=== PATIENT | male | born 1960 | race American Indian/Alaskan Native ===

== ENCOUNTER 2017-09-15 20:21 | Emergency (ER) | payer MEDICAID, OTHER ==
[2017-09-15 20:30] VITALS: RESP 19; TEMP 97.1; O2SAT 95
--- NOTE | 2017-09-15 22:18 | US ---
EXAM: US Scrotum EXAM DATE/TIME: 09/15/2017 8:56 PM CLINICAL HISTORY: 57 years old, male; Pain; Scrotum pain; Additional info: Pain, edema TECHNIQUE: Real-time ultrasound of the scrotum with color Doppler and image documentation. COMPARISON: No relevant prior studies available. FINDINGS: There is scrotal wall thickening (6 mm on the right and 9 mm on left). The thickened scrotal wall is heterogeneous and hypervascular. This combination of findings suggest acute infectious/inflammatory process/cellulitis. The right testicle measures 3.6 x 2.4 x 2.2 cm and the left testicle measures 3.7 x 2.7 x 2.1 cm. The testicles are homogeneous bilaterally. Color flow and arterial waveforms are demonstrated in the testicles bilaterally (no torsion). The epidiymis are normal bilaterally. There are small bilateral hydroceles. There are bilateral varicoceles. IMPRESSION: Thickened, heterogeneous, hypervascular scrotal wall greater on the left suggestive of acute infectious/inflammatory process/cellulitis.
--- NOTE | 2017-09-15 23:43 | ED PDOC ---
HPI: Male Pain Time Seen by Provider: 09/15/17 20:35 Chief Complaint (Nursing): Male Genitourinary Chief Complaint (Provider): Bilateral testicular pain History Per: Patient History/Exam Limitations: no limitations Onset/Duration Of Symptoms: Days Current Symptoms Are (Timing): Still Present Additional Complaint(s): 57 yo male presents with testicular pain, erythema and swelling x 2 days. PT denies chest pain, SOB, abdominal pain, etc. Past Medical History Reviewed: Historical Data, Nursing Documentation, Vital Signs Vital Signs: Last Vital Signs Temp 97.1 F L 09/15/17 20:26 Pulse 107 H 09/15/17 20:26 Resp 19 09/15/17 20:26 BP Pulse Ox 95 09/15/17 20:26 - Medical History PMH: HTN, Schizophrenia Denies: Diabetes, Hepatitis, HIV, Seizures, Sexually Transmitted Disease - Surgical History Surgical History: No Surg Hx - Family History Family History: States: No Known Family Hx - Living Arrangements Living Arrangements: With Family - Home Medications Home Medications: Ambulatory Orders Medication Instructions Recorded No Known Home Med 09/16/17 - Allergies Allergies/Adverse Reactions: Allergies Allergy/AdvReac Type Severity Reaction Status Date / Time Penicillins Allergy RASH Verified 09/15/17 20:25 Review of Systems ROS Statement: Except As Marked, All Systems Reviewed And Found Negative Constitutional: Negative for: Fever, Chills Genitourinary Male: Positive for: Scrotal Pain. Negative for: Dysuria, Penile Discharge, Penile Pain Physical Exam - Reviewed Nursing Documentation Reviewed: Yes Vital Signs Reviewed: Yes - Physical Exam Appears: Positive for: Well, Non-toxic, No Acute Distress Head Exam: Positive for: ATRAUMATIC, NORMAL INSPECTION, NORMOCEPHALIC Skin: Positive for: Normal Color, Warm, DRY Eye Exam: Positive for: Normal appearance ENT: Positive for: Normal ENT Inspection Neck: Positive for: Normal, Painless ROM Cardiovascular/Chest: Positive for: Regular Rate, Rhythm Respiratory: Positive for: Normal Breath Sounds. Negative for: Accessory Muscle Use, Respiratory Distress Gastrointestinal/Abdominal: Positive for: Normal Exam. Negative for: Tenderness Male Genital Exam: Positive for: scrotum tenderness (R), scrotum tenderness (L) (Skin appears thick and erythematous ). Negative for: normal genitalia Back: Positive for: Normal Inspection Extremity: Positive for: Normal ROM Neurologic/Psych: Positive for: Alert, Oriented - ECG O2 Sat by Pulse Oximetry: 95 Medical Decision Making Medical Decision Making: Pt refused labs. Pt afebrile. Disposition - Clinical Impression Clinical Impression: Testicular pain - Patient ED Disposition Is Patient to be Admitted: No Counseled Patient/Family Regarding: Diagnosis, Need For Followup, Rx Given - Disposition Disposition: Routine/Home Disposition Time: 23:47 Condition: GOOD Instructions: Cellulitis (Skin Infection), Adult (DC) Forms: [employer] (Khmer)
[2017-09-15 23:54] VITALS: PULSE 98
[2017-09-16] MEDS ORDERED: cefTRIAXone (Rocephin) 1 gm Inj ONE (09:19)
[2017-09-16] MEDS ORDERED: Nitroglycerin 2% Ointment Foilpak UD TOP ONE (09:19)
== END 2017-09-16 00:29 | disposition home or self-care (01) ==
LOC: H.ER 20:21
DX: N50.82 Scrotal pain (principal); F20.9 Schizophrenia, unspecified; I10 Essential (primary) hypertension; Z88.0 Allergy status to penicillin

== ENCOUNTER 2017-09-16 03:29 | Inpatient (IN) | payer SELFPAY ==
--- NOTE | 2017-09-16 05:36 | ED PDOC ---
HPI: General Adult Time Seen by Provider: 09/16/17 03:44 Chief Complaint (Nursing): Medical Clearance History Per: Patient Additional Complaint(s): Pt. brought in by [facility]ON[facility] for for medical and psychiatric clearance. Pt. refused to answer questions. Pt. is verbally abusive staff. Past Medical History Reviewed: Historical Data, Nursing Documentation, Vital Signs Vital Signs: Last Vital Signs Temp 98.0 F 09/16/17 03:34 Pulse 96 H 09/16/17 06:44 Resp 16 09/16/17 03:34 BP 156/78 H 09/16/17 06:47 Pulse Ox 98 09/16/17 06:44 - Medical History PMH: HTN, Schizophrenia Denies: CHF, Diabetes, Hepatitis, HIV, Seizures, Sexually Transmitted Disease - Family History Family History: States: Unknown Family Hx - Home Medications Home Medications: Ambulatory Orders Medication Instructions Recorded Doxycycline Monohydrate 100 mg PO BID #20 tablet 09/15/17 - Allergies Allergies/Adverse Reactions: Allergies Allergy/AdvReac Type Severity Reaction Status Date / Time Penicillins Allergy RASH Verified 09/15/17 20:25 Review of Systems Review Of Systems: ROS cannot be obtained secondary to pt's inabilty to answer questions. Physical Exam - Physical Exam Appears: Positive for: Well, Non-toxic, No Acute Distress Head Exam: Positive for: ATRAUMATIC, NORMAL INSPECTION, NORMOCEPHALIC Skin: Positive for: Normal Color, Warm. Negative for: Rash Eye Exam: Positive for: Normal appearance. Negative for: Periorbital swelling, Periorbital tenderness ENT: Positive for: Normal ENT Inspection Neck: Positive for: Normal, Painless ROM Cardiovascular/Chest: Positive for: Regular Rate, Rhythm. Negative for: JVD, Tachycardia Respiratory: Positive for: Crackles (diffuse crackles). Negative for: Respiratory Distress Pulses-Dorsalis Pedis (L): 2+ Pulses-Dorsalis Pedis (R): 2+ Gastrointestinal/Abdominal: Positive for: Normal Exam, Soft. Negative for: Tenderness Extremity: Positive for: Other (b/l pitting edema starting on b/l thighs extending to b/l lower legs) Neurologic/Psych: Positive for: Alert. Negative for: Aphasia, Facial Droop - ECG ECG: Positive for: Interpreted By Me ECG Rhythm: Positive for: Sinus Rhythm. Negative for: ST/T Changes Rate: 96 O2 Sat by Pulse Oximetry: 98 - Radiology X-Ray: Interpreted by Oh X-Ray Interpretation: Other (CHF; confirmed by Dr. Meyers) - Progress ED Course And Treament: Case d/w Dr. Meyers who agrees with care. Labs, lasix 20mg IVP, nitropaste, EKG, duplex b/l lower vein ext ordered. Pt. placed on court recording monitor. Pt. refusing to have any testing done and is attempting to hit staff. Ativan 2mg IM, haldol 5mg IM ordered. Restraints ordered. Case d/w Dr. Collins and arrangements made for admission. Disposition - Clinical Impression Clinical Impression: CHF (congestive heart failure) - Patient ED Disposition Is Patient to be Admitted: Yes - Disposition Disposition Time: 05:29 Condition: STABLE
[2017-09-16] MEDS ORDERED: Nitroglycerin 2% Ointment Foilpak UD TOP STA (06:40)
[2017-09-16 07:02] LABS: BASO % 0.4 % (0.0-2.0); EOS % 0.3 % (0.0-4.0); HEMOGLOBIN 11.6 g/dL (12.0-18.0); LYMPH # 2.7 K/uL (1.0-4.3); LYMPH % 33.4 % (20.0-40.0); MEAN CORPUSCULAR HEMOGLOBIN 21.5 pg (27.0-31.0); MEAN PLATELET VOLUME 7.8 fl (7.2-11.7); MONO # 0.5 K/uL (0.0-0.8); MONO % 6.4 % (0.0-10.0); NEUT # 4.9 K/uL (1.8-7.0); NEUT % 59.5 % (50.0-75.0); NRBC % 0.1 % (0.0-0.0); RBC 5.41 Mil/uL (4.40-5.90); RED CELL DISTRIBUTION WIDTH 18.6 % (11.5-14.5); WHITE BLOOD COUNT 8.2 K/uL (4.8-10.8)
[2017-09-16 07:14] LABS: ALB/GLOB RATIO 0.7 (1.0-2.1); ALBUMIN 3.1 g/dL (3.5-5.0); ALT/SGPT 44 U/L (21-72); AST/SGOT 35 U/L (17-59); BLOOD UREA NITROGEN 28 mg/dl (9-20); CALCIUM 8.5 mg/dL (8.4-10.2); GFR AFRICAN-AMERICAN > 60; GFR NON-AFRICAN AMERICAN > 60
[2017-09-16 07:25] LABS: B-TYPE NATRIURETIC PEPTIDE 8090 pg/ml (0-900)
--- NOTE | 2017-09-16 07:52 | CP.PCM.HP ---
History of Present Illness - History of Present Illness History of Present Illness: 57 year old male unknown past medical history was seen in the emergency department earlier yesterday afternoon for testicular pain, and was discharged. He was then found outside the ED, laying down on the ground refusing to leave. Patient was to be cleared by psych for discharge, however was noted to have lower extremity edema. Patient was sedated with Haldol 5 and Ativan 2, and is currently unable to answer any questions. +Cough, no sputum, Afebrile, no WBC, however BNP 8K and CXR shows both vascular congestion and questionable RLL infiltrates. He is HD stable, NAD. Procalcitonin and lower extremity ultrasounds pending. Mild crackles on exam with lower extremity edema, no dyspnea. Gentle diuresis, and empirically treat for CAP. ROS: unable to be obtained at this time due to sedation. History unable to be obtained at this time due to sedation. Present on Admission - Present on Admission Any Indicators Present on Admission: No Past Patient History - Tetanus Immunizations Tetanus Immunization: Unknown - Past Social History Smoking Status: Current Some Days Smoker - CARDIAC Hx Congestive Heart Failure: No Hx Hypertension: Yes - PULMONARY Hx Tuberculosis: No - NEUROLOGICAL Hx Seizures: No - HEMATOLOGICAL/ONCOLOGICAL Hx Human Immunodeficiency Virus (HIV): No - GENITOURINARY/GYNECOLOGICAL Hx Sexually Transmitted Disorders: No - PSYCHIATRIC Hx Schizophrenia: Yes - SURGICAL HISTORY Hx Surgeries: No - ANESTHESIA Hx Anesthesia: No Meds Allergies/Adverse Reactions: Allergies Allergy/AdvReac Type Severity Reaction Status Date / Time Penicillins Allergy RASH Verified 09/15/17 20:25 Physical Exam - Constitutional Appears: Non-toxic, No Acute Distress - Head Exam Head Exam: ATRAUMATIC, NORMOCEPHALIC - Eye Exam Eye Exam: EOMI, Normal appearance, PERRL Pupil Exam: NORMAL ACCOMODATION - ENT Exam ENT Exam: Mucous Membranes Moist, Normal Oropharynx - Respiratory Exam Respiratory Exam: Clear to Auscultation Bilateral, NORMAL BREATHING PATTERN - Cardiovascular Exam Cardiovascular Exam: RRR, +S1, +S2 - GI/Abdominal Exam GI & Abdominal Exam: Normal Bowel Sounds, Soft - Extremities Exam Extremities exam: Positive for: normal capillary refill, pedal edema, pedal pulses present - Back Exam Back exam: absent: CVA tenderness (L), CVA tenderness (R) - Neurological Exam Neurological exam: Altered, Reflexes Normal - Psychiatric Exam Psychiatric exam: Normal Affect, Normal Mood - Skin Skin Exam: Dry, Warm Results - Vital Signs Recent Vital Signs: Last Vital Signs Temp 98.0 F 09/16/17 03:34 Pulse 96 H 09/16/17 07:07 Resp 16 09/16/17 03:34 BP 156/78 H 09/16/17 06:47 Pulse Ox 98 09/16/17 07:07 - Labs Result Diagrams: 09/16/17 06:57 09/16/17 06:57 Labs: Laboratory Results - last 24 hr 09/16/17 09/16/17 06:57 06:57 WBC 8.2 RBC 5.41 Hgb 11.6 L Hct 40.0 MCV 74.0 L MCH 21.5 L MCHC 29.0 L RDW 18.6 H Plt Count 322 MPV 7.8 Neut % (Auto) 59.5 Lymph % (Auto) 33.4 Harney % (Auto) 6.4 Eos % (Auto) 0.3 Baso % (Auto) 0.4 Neut # (Auto) 4.9 Lymph # (Auto) 2.7 Harney # (Auto) 0.5 Eos # (Auto) 0.0 Baso # (Auto) 0.0 Sodium 138 Potassium 3.9 Chloride 100 Carbon Dioxide 26 Anion Gap 16 BUN 28 H Creatinine 0.8 Est GFR ( Amer) > 60 Est GFR (Non-Af Amer) > 60 Random Glucose 73 L Calcium 8.5 Total Bilirubin 0.6 AST 35 ALT 44 Alkaline Phosphatase 186 H Troponin I 0.0170 NT-Pro-B Natriuret Pep 8090 H Total Protein 7.7 Albumin 3.1 L Globulin 4.7 H Albumin/Globulin Ratio 0.7 L Alcohol, Quantitative < 10 Assessment & Plan - Assessment and Plan (Free Text) Plan: 57 year old male unknown past medical history was seen in the emergency department earlier yesterday afternoon for testicular pain, and was discharged. He was then found outside the ED, laying down on the ground refusing to leave. Patient was to be cleared by psych for discharge, however was noted to have lower extremity edema. Patient was sedated with Haldol 5 and Ativan 2, and is currently unable to answer any questions. +Cough, no sputum, Afebrile, no WBC, however BNP 8K and CXR shows both vascular congestion and questionable RLL infiltrates. He is HD stable, NAD. Procalcitonin and lower extremity ultrasounds pending. Mild crackles on exam with lower extremity edema, no dyspnea. Gentle diuresis, and empirically treat for CAP. Acute CHF - unknown chronicity, unspecified type at this time - pedal edema, crackles, CXR +pulmonary vascular congestion - BNP 8090 - Lasix 20 mg IV daily - ECHO pending - monitor RLL Pna - afebrile no WBC but +CXR - procalcitonin pending - on azithromycin and ceftriaxone empirically VTE lovenox
[2017-09-16] MEDS ORDERED: Sodium Chloride 0.9% Inj (10mL) IV ONE (09:00)
[2017-09-16] MEDS ORDERED: Sodium Bicarbonate 7.5% (0.9 MEQ/ML) 50ML INJ IV ONE (09:00)
[2017-09-16] MEDS: Azithromycin 500 MG in Sodium Chloride 0.9% 250 ML IVPB SCH (10:24)
[2017-09-16] MEDS: Enoxaparin 40 mg Syringe SC SCH (10:26)
--- NOTE | 2017-09-16 10:33 | RAD ---
HISTORY: Clearance COMPARISON: No prior. FINDINGS: LUNGS: Diffuse bilateral interstitial type infiltrates. Rule out underlying interstitial fibrosis with superimposed pneumonia Biapical pleural thickening. PLEURA: No significant pleural effusion identified, no pneumothorax apparent. CARDIOVASCULAR: Heart appears enlarged OSSEOUS STRUCTURES: No significant abnormalities. VISUALIZED UPPER ABDOMEN: Normal. OTHER FINDINGS: None. IMPRESSION: Diffuse bilateral interstitial type infiltrates. Rule out underlying interstitial fibrosis with superimposed pneumonia Biapical pleural thickening.
--- NOTE | 2017-09-16 12:22 | US ---
PROCEDURE: KeyBilateral lower extremity venous duplex Doppler. HISTORY: b/l lower leg swelling COMPARISON: None available. TECHNIQUE: Bilateral common femoral, superficial femoral, popliteal and posterior tibial veins were evaluated. Flow was assessed with color Doppler, compressibility, assessment of phasic flow and augmentation response. FINDINGS: COMMON FEMORAL VEIN: Right CFV: Unremarkable. Left CFV: Unremarkable. SUPERFICIAL FEMORAL VEIN: Right SFV: Unremarkable. Left SFV: Unremarkable. POPLITEAL VEIN: Right Popliteal: Unremarkable. Left Popliteal: Unremarkable. POSTERIOR TIBIAL VEIN: Right PTV: Unremarkable. Left PTV: Unremarkable. OTHER FINDINGS: None. IMPRESSION: No evidence of deep venous thrombosis.
[2017-09-17 06:09] LABS: BASO # 0.1 K/uL (0.0-0.2); BASO % 1.7 % (0.0-2.0); EOS % 0.4 % (0.0-4.0); HEMOGLOBIN 10.8 g/dL (12.0-18.0); LYMPH # 1.7 K/uL (1.0-4.3); LYMPH % 23.8 % (20.0-40.0); MEAN CELL VOLUME 73.4 fl (80.0-94.0); MEAN CORPUSCULAR HEMOGLOBIN 21.7 pg (27.0-31.0); MEAN CORPUSCULAR HGB CONC 29.5 g/dL (33.0-37.0); MEAN PLATELET VOLUME 7.8 fl (7.2-11.7); MONO # 0.4 K/uL (0.0-0.8); MONO % 5.2 % (0.0-10.0); NEUT # 4.8 K/uL (1.8-7.0); NEUT % 68.9 % (50.0-75.0); NRBC % 0.1 % (0.0-0.0); RED CELL DISTRIBUTION WIDTH 18.5 % (11.5-14.5); WHITE BLOOD COUNT 6.9 K/uL (4.8-10.8)
[2017-09-17 06:47] LABS: BLOOD UREA NITROGEN 26 mg/dl (9-20); CALCIUM 8.5 mg/dL (8.4-10.2); GFR AFRICAN-AMERICAN > 60; GFR NON-AFRICAN AMERICAN > 60
[2017-09-17] MEDS: Enoxaparin 40 mg Syringe SC SCH (09:30)
[2017-09-17 09:37] LABS: BARBITURATES, UR NEGATIVE (NEGATIVE); BENZODIAZEPINES, UR NEGATIVE (NEGATIVE); OPIATES, UR NEGATIVE (NEGATIVE); PHENCYCLIDINE, UR NEGATIVE (NEGATIVE)
[2017-09-17 09:48] LABS: URINE BACTERIA RARE (<OCC); URINE BILIRUBIN NEGATIVE (NEGATIVE); URINE BLOOD NEGATIVE (NEGATIVE); URINE CLARITY CLEAR (Clear); URINE COLOR YELLOW (YELLOW); URINE GLUCOSE (UA) NEG (Normal); URINE LEUKOCYTE ESTERASE NEG Leu/uL (Negative); URINE PROTEIN NEGATIVE (NEGATIVE)
[2017-09-17] MEDS: Azithromycin 500 MG in Sodium Chloride 0.9% 250 ML IVPB SCH (11:00)
[2017-09-17] MEDS ORDERED: Metoprolol Succinate 25 mg XL Tab PO SCH (14:15)
--- NOTE | 2017-09-17 14:18 | CP.PCM.PN ---
Subjective - Date & Time of Evaluation Date of Evaluation: 09/17/17 Time of Evaluation: 14:16 - Subjective Subjective: Pt comfortable no dyspnea no acute distress hd stable Objective - Vital Signs/Intake and Output Vital Signs (last 24 hours): Temp Pulse Resp BP Pulse Ox 99.1 F 123 H 17 130/70 99 09/17/17 08:00 09/17/17 08:00 09/17/17 08:00 09/17/17 09:30 09/17/17 08:00 Intake and Output: 09/17/17 09/17/17 06:59 18:59 Intake Total 400 Output Total 300 Balance 100 - Medications Medications: Current Medications Acetaminophen (Tylenol 325mg Tab) 650 mg PO Q6 PRN PRN Reason: Pain, moderate (4-7) Docusate Sodium (Colace) 100 mg PO BID [facility] Last Admin: 09/17/17 09:30 Dose: 100 mg Enoxaparin Sodium (Lovenox) 40 mg SC DAILY [facility] PRN Reason: Protocol Last Admin: 09/17/17 09:30 Dose: 40 mg Furosemide (Lasix) 20 mg IVP DAILY [facility] Last Admin: 09/17/17 09:30 Dose: 20 mg Azithromycin 500 mg/ Sodium (Chloride) 250 mls @ 250 mls/hr IVPB DAILY [facility] PRN Reason: Protocol Last Admin: 09/16/17 10:24 Dose: 250 mls/hr Ceftriaxone Sodium 1 gm/ (Sodium Chloride) 100 mls @ 100 mls/hr IVPB DAILY [facility] PRN Reason: Protocol Last Admin: 09/17/17 10:23 Dose: 100 mls/hr Metoprolol Succinate (Toprol Xl) 25 mg PO DAILY [facility] Ondansetron HCl (Zofran Inj) 4 mg IVP Q6 PRN PRN Reason: Nausea/Vomiting - Labs Labs: 09/17/17 04:38 09/17/17 04:38 - Constitutional Appears: Non-toxic, No Acute Distress - Head Exam Head Exam: ATRAUMATIC, NORMOCEPHALIC - Eye Exam Eye Exam: EOMI, Normal appearance - ENT Exam ENT Exam: Mucous Membranes Moist, Normal Oropharynx - Neck Exam Neck Exam: Full ROM, Normal Inspection - Respiratory Exam Respiratory Exam: Clear to Ausculation Bilateral, NORMAL BREATHING PATTERN - Cardiovascular Exam Cardiovascular Exam: RRR, +S1, +S2 - GI/Abdominal Exam GI & Abdominal Exam: Soft, Normal Bowel Sounds - Extremities Exam Extremities Exam: Full ROM, Normal Capillary Refill - Back Exam Back Exam: absent: CVA tenderness (L), CVA tenderness (R) - Neurological Exam Neurological Exam: Alert, Awake - Psychiatric Exam Psychiatric exam: Normal Affect, Normal Mood - Skin Skin Exam: Dry, Warm Assessment and Plan - Assessment and Plan (Free Text) Plan: 57 year old male unknown past medical history was seen in the emergency department earlier yesterday afternoon for testicular pain, and was discharged. He was then found outside the ED, laying down on the ground refusing to leave. Patient was to be cleared by psych for discharge, however was noted to have lower extremity edema. Patient was sedated with Haldol 5 and Ativan 2, and is currently unable to answer any questions. +Cough, no sputum, Afebrile, no WBC, however BNP 8K and CXR shows both vascular congestion and questionable RLL infiltrates. He is HD stable, NAD. Procalcitonin and lower extremity ultrasounds pending. Mild crackles on exam with lower extremity edema, no dyspnea. Gentle diuresis, and empirically treat for CAP. Acute CHF - unknown chronicity, unspecified type at this time - pedal edema, crackles, CXR +pulmonary vascular congestion - BNP 8090 - Lasix 20 mg IV daily - ECHO pending TOMORROW and then d/c - monitor RLL Pna - afebrile no WBC but +CXR - procalcitonin pending, neg x1, trend, if neg x2 then d/c abx tomrrow - on azithromycin and ceftriaxone empirically VTE lovenox
[2017-09-17] MEDS ORDERED: Albuterol-Ipratrop 3 mg / 0.5 (3 ml) UD INH PRN (22:24)
[2017-09-18] MEDS ORDERED: Cisatracurium 2 mg/mL Inj 10ml IV PRN (02:30)
[2017-09-18] MEDS ORDERED: Acetaminophen 650mg/20.3ml solution UD NG PRN (02:30)
[2017-09-18] MEDS ORDERED: Sodium Chloride 0.9% 1,000 ML IV SCH (02:30)
[2017-09-18 02:38] LABS: ABG ALLEN TEST YES; ARTERIAL BLOOD GAS HCO3 18.3 mmol/L (21-28); ARTERIAL BLOOD GAS O2 SAT 100.3 % (95-98); ARTERIAL BLOOD GAS PCO2 67 mm/Hg (35-45); ARTERIAL BLOOD GAS PH 7.11 (7.35-7.45); ARTERIAL BLOOD GAS PO2 232 mm/Hg (80-100); ARTERIAL BLOOD GAS TCO2 23.4 mmol/L (22-28)
--- NOTE | 2017-09-18 02:39 | CP.PCM.CON ---
<Honey Barrios - Last Filed: 09/18/17 03:10> History of Present Illness - History of Present Illness History of Present Illness: Code Blue Time:1:55 am Code Blue arrival time: 1:56 am Code blue location : ICU [id number] YO M who was admitted for vascular congestion and questionable RLL infiltrates with no white count was found to be unresponsive by nurse and did not have a pulse. David Azul was called at approximately 1:55 am. Code Blue intervention: - Code Blue protocol was called and chest compressions and bag mask was started immediately. - Patient was intubated. RR: 16, TV 500 - 4 rounds of epinephrine were given throughout the code. 1st Epi: 1:57, second : 2 am, Third: 2:03 am. Bicarb: 2:06 am - ROSC was achieved at 2: 07 am - Femoral central line was place in RLE. Was Flushed - Chest X Ray, EKG, CBC, CMP, Troponin, PT/INR, Lactic Acid - Hypothermic protocol initiated O: End Vitals: 114/77 HR: 100 HEENT: Atraumatic: Intubated Cardio: S1S2 tachycardia Resp: Decreased breath sounds, scattered crackles noted Abdomen: Soft, NTND A/P 57 YO M was found unresponsive in ICU with no pulse. Code Blue was called - Cause of Code blue was Asystole. SIRS was not the cause of the cardiac arrest - F/U with labs - Admit into ICU - 1:1 - Hypothermic protocol: Meets Inclusion criteria. Does not meet any of the exclusion criteria. - Hospitalist: Dr. Garcia present throughout David Blue - \ Past Patient History - Tetanus Immunizations Tetanus Immunization: Unknown - Past Medical History & Family History Past Medical History?: Yes - Past Social History Smoking Status: Light Smoker < 10 Cigarettes Daily - CARDIAC Hx Cardiac Disorders: Yes Hx Hypertension: Yes - PULMONARY Hx Respiratory Disorders: No Hx Tuberculosis: No - NEUROLOGICAL Hx Neurological Disorder: No - HEENT Hx HEENT Problems: No - RENAL Hx Chronic Kidney Disease: No - ENDOCRINE/METABOLIC Hx Endocrine Disorders: No - HEMATOLOGICAL/ONCOLOGICAL Hx Blood Disorders: No Hx Human Immunodeficiency Virus (HIV): No - INTEGUMENTARY Hx Dermatological Problems: No - MUSCULOSKELETAL/RHEUMATOLOGICAL Hx Musculoskeletal Disorders: No Hx Falls: No - GASTROINTESTINAL Hx Gastrointestinal Disorders: No - GENITOURINARY/GYNECOLOGICAL Hx Genitourinary Disorders: No Hx Sexually Transmitted Disorders: No - PSYCHIATRIC Hx Psychophysiologic Disorder: Yes Hx Schizophrenia: Yes Hx Substance Use: No (DENIES) - SURGICAL HISTORY Hx Surgeries: No - ANESTHESIA Hx Anesthesia: No Hx Anesthesia Reactions: No Hx Malignant Hyperthermia: No Meds Allergies/Adverse Reactions: Allergies Allergy/AdvReac Type Severity Reaction Status Date / Time Penicillins Allergy RASH Verified 09/15/17 20:25 - Medications Medications: Current Medications Acetaminophen (Tylenol 325mg Tab) 650 mg PO Q6 PRN PRN Reason: Pain, moderate (4-7) Albuterol/Ipratropium (Duoneb 3 Mg/0.5 Mg (3 Ml) Ud) 3 ml INH RQ6 PRN PRN Reason: Shortness of Breath Last Admin: 09/18/17 01:18 Dose: 3 ml Docusate Sodium (Colace) 100 mg PO BID [facility] Last Admin: 09/17/17 18:11 Dose: 100 mg Enoxaparin Sodium (Lovenox) 40 mg SC DAILY [facility] PRN Reason: Protocol Last Admin: 09/17/17 09:30 Dose: 40 mg Furosemide (Lasix) 20 mg IVP DAILY [facility] Last Admin: 09/17/17 09:30 Dose: 20 mg Azithromycin 500 mg/ Sodium (Chloride) 250 mls @ 250 mls/hr IVPB DAILY [facility] PRN Reason: Protocol Last Admin: 09/17/17 11:00 Dose: 250 mls/hr Ceftriaxone Sodium 1 gm/ (Sodium Chloride) 100 mls @ 100 mls/hr IVPB DAILY [facility] PRN Reason: Protocol Last Admin: 09/17/17 10:23 Dose: 100 mls/hr Metoprolol Succinate (Toprol Xl) 25 mg PO DAILY [facility] Last Admin: 09/17/17 15:00 Dose: 25 mg Ondansetron HCl (Zofran Inj) 4 mg IVP Q6 PRN PRN Reason: Nausea/Vomiting Results - Vital Signs Recent Vital Signs: Last Vital Signs Temp 98.8 F 09/18/17 01:00 Pulse 89 09/18/17 01:00 Resp 12 09/18/17 01:00 BP 95/58 L 09/18/17 01:00 Pulse Ox 97 09/18/17 01:00 - Labs Result Diagrams: 09/17/17 04:38 09/17/17 04:38 Labs: Laboratory Results - last 24 hr 09/17/17 09/17/17 09/17/17 04:25 04:38 04:38 WBC 6.9 RBC 5.00 Hgb 10.8 L Hct 36.7 MCV 73.4 L MCH 21.7 L MCHC 29.5 L RDW 18.5 H Plt Count 341 MPV 7.8 Neut % (Auto) 68.9 Lymph % (Auto) 23.8 [place] % (Auto) 5.2 Eos % (Auto) 0.4 Baso % (Auto) 1.7 Neut # (Auto) 4.8 Lymph # (Auto) 1.7 [place] # (Auto) 0.4 Eos # (Auto) 0.0 Baso # (Auto) 0.1 Sodium 141 Potassium 4.6 Chloride 99 Carbon Dioxide 33 H Anion Gap 14 BUN 26 H Creatinine 0.8 Est GFR ( Amer) > 60 Est GFR (Non-Af Amer) > 60 Random Glucose 85 Calcium 8.5 Procalcitonin Urine Color Yellow Urine Clarity Clear Urine pH 5.0 Ur Specific [place] 1.025 Urine Protein Negative Urine Glucose (UA) Neg Urine Ketones Negative Urine Blood Negative Urine Nitrate Negative Urine Bilirubin Negative Urine Urobilinogen 2.0 Ur Leukocyte Esterase Neg Urine RBC (Auto) 1 Urine Microscopic WBC 1 Urine Bacteria Rare Urine Opiates Screen Urine Methadone Screen Ur Barbiturates Screen Ur Phencyclidine Scrn Ur Amphetamines Screen U Benzodiazepines Scrn U Oth Cocaine Metabols U Cannabinoids Screen 09/17/17 09/17/17 07:25 07:59 WBC RBC Hgb Hct MCV MCH MCHC RDW Plt Count MPV Neut % (Auto) Lymph % (Auto) [place] % (Auto) Eos % (Auto) Baso % (Auto) Neut # (Auto) Lymph # (Auto) [place] # (Auto) Eos # (Auto) Baso # (Auto) Sodium Potassium Chloride Carbon Dioxide Anion Gap BUN Creatinine Est GFR ( Amer) Est GFR (Non-Af Amer) Random Glucose Calcium Procalcitonin 0.05 L Urine Color Urine Clarity Urine pH Ur Specific [place] Urine Protein Urine Glucose (UA) Urine Ketones Urine Blood Urine Nitrate Urine Bilirubin Urine Urobilinogen Ur Leukocyte Esterase Urine RBC (Auto) Urine Microscopic WBC Urine Bacteria Urine Opiates Screen Negative Urine Methadone Screen Negative Ur Barbiturates Screen Negative Ur Phencyclidine Scrn Negative Ur Amphetamines Screen Negative U Benzodiazepines Scrn Negative U Oth Cocaine Metabols Negative U Cannabinoids Screen Negative <JoseDafnekurtis - Last Filed: 09/18/17 04:19> History of Present Illness - History of Present Illness History of Present Illness: I was present for the entire code as indicated above. Code blue called for patient being in asystole likely 2/2 resp arrest due to unclear cause. After several rounds of CPR, medications and intubation, there was ROSC. Patient met all inclusion criteria for hypothermia protocol, did not meet any exclusion criteria (patient is being treated for an infection, but SIRS does not appear to be the cause. Patient has been started on therapeutic hypothermia per protocol. Central line placed in R femoral vein. Further details as indicated above. Critical care time spent 120 min. Meds - Medications Medications: Current Medications Acetaminophen (Tylenol 650mg/20.3ml Solution Ud) 975 mg NG Q6 PRN PRN Reason: Rigors Albuterol/Ipratropium (Duoneb 3 Mg/0.5 Mg (3 Ml) Ud) 3 ml INH RQ6 PRN PRN Reason: Shortness of Breath Last Admin: 09/18/17 01:18 Dose: 3 ml Artificial Tears (Lacri-Lube) 1 applic OU HS TIMUR Cisatracurium Besylate (Nimbex) 7.32 mg IV ONCE PRN; Protocol PRN Reason: shivering Docusate Sodium (Colace) 100 mg PO BID TIMUR Last Admin: 09/17/17 18:11 Dose: 100 mg Enoxaparin Sodium (Lovenox) 40 mg SC DAILY TIMUR PRN Reason: Protocol Last Admin: 09/17/17 09:30 Dose: 40 mg Azithromycin 500 mg/ Sodium (Chloride) 250 mls @ 250 mls/hr IVPB DAILY TIMUR PRN Reason: Protocol Last Admin: 09/17/17 11:00 Dose: 250 mls/hr Ceftriaxone Sodium 1 gm/ (Sodium Chloride) 100 mls @ 100 mls/hr IVPB DAILY TIMUR PRN Reason: Protocol Last Admin: 09/17/17 10:23 Dose: 100 mls/hr Propofol (Diprivan) 1,000 mg in 100 mls @ 2.196 mls/hr IV .Q24H TIMUR; 5 MCG/KG/ MIN PRN Reason: Protocol Stop: 09/19/17 02:48 Dextrose/Sodium Chloride (Dextrose 5%/0.45% Ns 1000 Ml) 1,000 mls @ 100 mls/hr IV .Q10H [facility] Stop: 09/18/17 12:59 Dextrose/Lactated Ringer's (Dextrose 5%/Lactated Ringer's) 1,000 mls @ 999 mls/ hr IV .Q1H1M TIMUR Stop: 09/19/17 04:14 Pantoprazole Sodium (Protonix Inj) 40 mg IVP DAILY [facility] Results - Vital Signs Recent Vital Signs: Last Vital Signs Temp 98.8 F 09/18/17 01:00 Pulse 89 09/18/17 01:00 Resp 12 09/18/17 01:00 BP 95/58 L 09/18/17 01:00 Pulse Ox 97 09/18/17 01:00 - Labs Result Diagrams: 09/18/17 02:25 09/18/17 02:25 Labs: Laboratory Results - last 24 hr 09/17/17 09/17/17 09/17/17 04:25 04:38 04:38 WBC 6.9 RBC 5.00 Hgb 10.8 L Hct 36.7 MCV 73.4 L MCH 21.7 L MCHC 29.5 L RDW 18.5 H Plt Count 341 MPV 7.8 Neut % (Auto) 68.9 Lymph % (Auto) 23.8 [place] % (Auto) 5.2 Eos % (Auto) 0.4 Baso % (Auto) 1.7 Neut # (Auto) 4.8 Lymph # (Auto) 1.7 [place] # (Auto) 0.4 Eos # (Auto) 0.0 Baso # (Auto) 0.1 PT INR pCO2 pO2 HCO3 ABG pH ABG Total CO2 ABG O2 Saturation ABG Base Excess Cecilio Test ABG Potassium A-a O2 Difference Glucose Lactate Vent Mode Mechanical Rate FiO2 Tidal Volume PEEP Crit Value Called To Crit Value Called By Crit Value Read Back Blood Gas Notified Time Sodium 141 Potassium 4.6 Chloride 99 Carbon Dioxide 33 H Anion Gap 14 BUN 26 H Creatinine 0.8 Est GFR ( Amer) > 60 Est GFR (Non-Af Amer) > 60 POC Glucose (mg/dL) Random Glucose 85 Lactic Acid Calcium 8.5 Phosphorus Magnesium Total Bilirubin AST ALT Alkaline Phosphatase Troponin I NT-Pro-B Natriuret Pep Total Protein Albumin Globulin Albumin/Globulin Ratio Procalcitonin Arterial Blood Potassium Urine Color Yellow Urine Clarity Clear Urine pH 5.0 Ur Specific [place] 1.025 Urine Protein Negative Urine Glucose (UA) Neg Urine Ketones Negative Urine Blood Negative Urine Nitrate Negative Urine Bilirubin Negative Urine Urobilinogen 2.0 Ur Leukocyte Esterase Neg Urine RBC (Auto) 1 Urine Microscopic WBC 1 Urine Bacteria Rare Urine Opiates Screen Urine Methadone Screen Ur Barbiturates Screen Ur Phencyclidine Scrn Ur Amphetamines Screen U Benzodiazepines Scrn U Oth Cocaine Metabols U Cannabinoids Screen 09/17/17 09/17/17 09/18/17 07:25 07:59 02:25 WBC 9.5 RBC 4.64 Hgb 10.0 L Hct 34.9 L MCV 75.2 L MCH 21.6 L MCHC 28.8 L RDW 19.2 H Plt Count 167 D MPV 8.0 Neut % (Auto) 60.1 Lymph % (Auto) 32.2 [place] % (Auto) 5.6 Eos % (Auto) 0.0 Baso % (Auto) 2.1 H Neut # (Auto) 5.7 Lymph # (Auto) 3.1 [place] # (Auto) 0.5 Eos # (Auto) 0.0 Baso # (Auto) 0.2 PT INR pCO2 pO2 HCO3 ABG pH ABG Total CO2 ABG O2 Saturation ABG Base Excess Cecilio Test ABG Potassium A-a O2 Difference Glucose Lactate Vent Mode Mechanical Rate FiO2 Tidal Volume PEEP Crit Value Called To Crit Value Called By Crit Value Read Back Blood Gas Notified Time Sodium Potassium Chloride Carbon Dioxide Anion Gap BUN Creatinine Est GFR ( Amer) Est GFR (Non-Af Amer) POC Glucose (mg/dL) Random Glucose Lactic Acid Calcium Phosphorus Magnesium Total Bilirubin AST ALT Alkaline Phosphatase Troponin I NT-Pro-B Natriuret Pep Total Protein Albumin Globulin Albumin/Globulin Ratio Procalcitonin 0.05 L Arterial Blood Potassium Urine Color Urine Clarity Urine pH Ur Specific [place] Urine Protein Urine Glucose (UA) Urine Ketones Urine Blood Urine Nitrate Urine Bilirubin Urine Urobilinogen Ur Leukocyte Esterase Urine RBC (Auto) Urine Microscopic WBC Urine Bacteria Urine Opiates Screen Negative Urine Methadone Screen Negative Ur Barbiturates Screen Negative Ur Phencyclidine Scrn Negative Ur Amphetamines Screen Negative U Benzodiazepines Scrn Negative U Oth Cocaine Metabols Negative U Cannabinoids Screen Negative 09/18/17 09/18/17 09/18/17 02:25 02:25 02:25 WBC RBC Hgb Hct MCV MCH MCHC RDW Plt Count MPV Neut % (Auto) Lymph % (Auto) [place] % (Auto) Eos % (Auto) Baso % (Auto) Neut # (Auto) Lymph # (Auto) [place] # (Auto) Eos # (Auto) Baso # (Auto) PT 17.4 H INR 1.6 H pCO2 pO2 HCO3 ABG pH ABG Total CO2 ABG O2 Saturation ABG Base Excess Cecilio Test ABG Potassium A-a O2 Difference Glucose Lactate Vent Mode Mechanical Rate FiO2 Tidal Volume PEEP Crit Value Called To Crit Value Called By Crit Value Read Back Blood Gas Notified Time Sodium 141 Potassium 5.1 H Chloride 98 Carbon Dioxide 21 L Anion Gap 27 H BUN 27 H Creatinine 1.2 Est GFR ( Amer) > 60 Est GFR (Non-Af Amer) > 60 POC Glucose (mg/dL) Random Glucose 22 L* D Lactic Acid 9.5 H* Calcium 8.3 L Phosphorus 7.3 H Magnesium 1.7 Total Bilirubin 1.1 AST 104 H D ALT 45 Alkaline Phosphatase 225 H D Troponin I 0.0570 NT-Pro-B Natriuret Pep 13844 H Total Protein 7.2 Albumin 2.8 L Globulin 4.3 H Albumin/Globulin Ratio 0.7 L Procalcitonin Arterial Blood Potassium Urine Color Urine Clarity Urine pH Ur Specific [place] Urine Protein Urine Glucose (UA) Urine Ketones Urine Blood Urine Nitrate Urine Bilirubin Urine Urobilinogen Ur Leukocyte Esterase Urine RBC (Auto) Urine Microscopic WBC Urine Bacteria Urine Opiates Screen Urine Methadone Screen Ur Barbiturates Screen Ur Phencyclidine Scrn Ur Amphetamines Screen U Benzodiazepines Scrn U Oth Cocaine Metabols U Cannabinoids Screen 09/18/17 09/18/17 09/18/17 02:30 02:38 03:10 WBC RBC Hgb Hct MCV MCH MCHC RDW Plt Count MPV Neut % (Auto) Lymph % (Auto) [place] % (Auto) Eos % (Auto) Baso % (Auto) Neut # (Auto) Lymph # (Auto) [place] # (Auto) Eos # (Auto) Baso # (Auto) PT INR pCO2 67 H pO2 232 H HCO3 18.3 L ABG pH 7.11 L* ABG Total CO2 23.4 ABG O2 Saturation 100.3 H ABG Base Excess -8.5 L Cecilio Test Yes ABG Potassium 4.7 A-a O2 Difference 397.0 Glucose 23 L* Lactate 10.2 H* Vent Mode A/c Mechanical Rate 14 FiO2 100.0 Tidal Volume 500 PEEP 5 Crit Value Called To Jose llamas md Crit Value Called By 302 Crit Value Read Back Y Blood Gas Notified Time 235 Sodium 135.0 Potassium Chloride 99.0 Carbon Dioxide Anion Gap BUN Creatinine Est GFR ( Amer) Est GFR (Non-Af Amer) POC Glucose (mg/dL) < 20 L* Random Glucose Lactic Acid Calcium Phosphorus Magnesium Total Bilirubin AST ALT Alkaline Phosphatase Troponin I 0.0560 NT-Pro-B Natriuret Pep Total Protein Albumin Globulin Albumin/Globulin Ratio Procalcitonin Arterial Blood Potassium 4.7 Urine Color Urine Clarity Urine pH Ur Specific [place] Urine Protein Urine Glucose (UA) Urine Ketones Urine Blood Urine Nitrate Urine Bilirubin Urine Urobilinogen Ur Leukocyte Esterase Urine RBC (Auto) Urine Microscopic WBC Urine Bacteria Urine Opiates Screen Urine Methadone Screen Ur Barbiturates Screen Ur Phencyclidine Scrn Ur Amphetamines Screen U Benzodiazepines Scrn U Oth Cocaine Metabols U Cannabinoids Screen 09/18/17 03:26 WBC RBC Hgb Hct MCV MCH MCHC RDW Plt Count MPV Neut % (Auto) Lymph % (Auto) [place] % (Auto) Eos % (Auto) Baso % (Auto) Neut # (Auto) Lymph # (Auto) [place] # (Auto) Eos # (Auto) Baso # (Auto) PT INR pCO2 pO2 HCO3 ABG pH ABG Total CO2 ABG O2 Saturation ABG Base Excess Cecilio Test ABG Potassium A-a O2 Difference Glucose Lactate Vent Mode Mechanical Rate FiO2 Tidal Volume PEEP Crit Value Called To Crit Value Called By Crit Value Read Back Blood Gas Notified Time Sodium Potassium Chloride Carbon Dioxide Anion Gap BUN Creatinine Est GFR ( Amer) Est GFR (Non-Af Amer) POC Glucose (mg/dL) 199 H Random Glucose Lactic Acid Calcium Phosphorus Magnesium Total Bilirubin AST ALT Alkaline Phosphatase Troponin I NT-Pro-B Natriuret Pep Total Protein Albumin Globulin Albumin/Globulin Ratio Procalcitonin Arterial Blood Potassium Urine Color Urine Clarity Urine pH Ur Specific [place] Urine Protein Urine Glucose (UA) Urine Ketones Urine Blood Urine Nitrate Urine Bilirubin Urine Urobilinogen Ur Leukocyte Esterase Urine RBC (Auto) Urine Microscopic WBC Urine Bacteria Urine Opiates Screen Urine Methadone Screen Ur Barbiturates Screen Ur Phencyclidine Scrn Ur Amphetamines Screen U Benzodiazepines Scrn U Oth Cocaine Metabols U Cannabinoids Screen
--- NOTE | 2017-09-18 02:52 | PCM.PROC ---
Procedures Attestation:: I certify that I have explained the specified Operation(s) or Procedure(s), risks, benefits and reasonable alternatives to the Patient and/or other person responsible. The opportunity was given to ask questions and all questions answered - Central Line Placement Triple Lumen Catheter Aseptic technique was employed throughout the procedure: Hand Hygiene done prior to procedure, Chloraprep Antiseptic: 30 second prep for IJ or SC sites Pt. Placed on Pulse Ox Monitor: Yes Central Line Prep: Povidone-Iodine 1% Ultrasound Used for Placement: No Central Line Lumen Inserted: triple Central Line Length: 16 cm Post Procedure: Sutured in Place, Good Blood Return, All Ports Aspirated, Flushed, Capped, Sterile Dressing Applied Secured by: Suture Post procedure dressing: Clear vapor permeable, Chlorhexidine disc (Biopatch) Post Procedure X-Ray: No Patient Tolerated Procedure: No Complications Immediate Complications: None Additional Comments: Procedure was emergently done during a code. Full sterile procedure could not be followed. - Intubation Time Out Performed: No Sedative: None Laryngoscope: Nick ET Tube Size: 8.0 ET Tube Uncuffed: No ET Tube Secured Locarion: Teeth ET Tube Placement Confirmation: Visualized Passing Through Cords, Breath Sounds Equal Bilaterally, No Breath Sounds Over Epigastrum, Confirmation w/Capnometry Patient Tolerated Procedure: Well Procedure Immediate Complications: None Additional comments: Intubation was done emergently. Patient with asystole.
[2017-09-18] MEDS ORDERED: Propofol 10 mg/ml 1,000 MG/100 ML VIAL IV SCH (03:00)
[2017-09-18] MEDS ORDERED: Dextrose 5%/0.45% NS 1,000 ML IV SCH (03:00)
[2017-09-18 03:21] LABS: B-TYPE NATRIURETIC PEPTIDE 26500 pg/ml (0-900)
[2017-09-18 03:22] LABS: PROTHROMBIN TIME 17.4 Seconds (9.8-13.1)
[2017-09-18 03:23] LABS: INR 1.6 (0.9-1.2)
[2017-09-18 03:30] LABS: ALB/GLOB RATIO 0.7 (1.0-2.1); ALBUMIN 2.8 g/dL (3.5-5.0); ALT/SGPT 45 U/L (21-72); AST/SGOT 104 U/L (17-59); BLOOD UREA NITROGEN 27 mg/dl (9-20); CALCIUM 8.3 mg/dL (8.4-10.2); GFR AFRICAN-AMERICAN > 60; GFR NON-AFRICAN AMERICAN > 60
[2017-09-18 04:12] LABS: BASO # 0.2 K/uL (0.0-0.2); BASO % 2.1 % (0.0-2.0); LYMPH # 3.1 K/uL (1.0-4.3); LYMPH % 32.2 % (20.0-40.0); MEAN CELL VOLUME 75.2 fl (80.0-94.0); MEAN CORPUSCULAR HEMOGLOBIN 21.6 pg (27.0-31.0); MEAN CORPUSCULAR HGB CONC 28.8 g/dL (33.0-37.0); MONO # 0.5 K/uL (0.0-0.8); MONO % 5.6 % (0.0-10.0); NEUT # 5.7 K/uL (1.8-7.0); NEUT % 60.1 % (50.0-75.0); NRBC % 0.8 % (0.0-0.0); RBC 4.64 Mil/uL (4.40-5.90); RED CELL DISTRIBUTION WIDTH 19.2 % (11.5-14.5); WHITE BLOOD COUNT 9.5 K/uL (4.8-10.8)
[2017-09-18] MEDS ORDERED: Dextrose 5%/Lactated Ringer's 1,000 ML IV SCH (04:15)
[2017-09-18] MEDS ORDERED: Dextrose 5%/0.9% NS 1,000 ML IV ONE (04:27)
[2017-09-18] MEDS ORDERED: Dextrose 5%/0.9% NS 1,000 ML IV SCH (04:30)
[2017-09-18 05:02] LABS: ABG ALLEN TEST YES; ARTERIAL BLOOD GAS HCO3 23.2 mmol/L (21-28); ARTERIAL BLOOD GAS O2 SAT 99.2 % (95-98); ARTERIAL BLOOD GAS PCO2 66 mm/Hg (35-45); ARTERIAL BLOOD GAS PH 7.22 (7.35-7.45); ARTERIAL BLOOD GAS PO2 112 mm/Hg (80-100)
[2017-09-18] MEDS ORDERED: Glucagon Recombinant 1 mg Inj IM PRN (05:13)
[2017-09-18] MEDS ORDERED: Dextrose 50% SYRINGE Inj (50 ml) IV PRN (05:13)
[2017-09-18 05:16] LABS: HEMOGLOBIN 9.7 g/dL (12.0-18.0); MEAN CELL VOLUME 74.7 fl (80.0-94.0); MEAN CORPUSCULAR HEMOGLOBIN 21.6 pg (27.0-31.0); RBC 4.48 Mil/uL (4.40-5.90); RED CELL DISTRIBUTION WIDTH 18.8 % (11.5-14.5); WHITE BLOOD COUNT 9.8 K/uL (4.8-10.8)
[2017-09-18 05:31] LABS: ALB/GLOB RATIO 0.6 (1.0-2.1); ALBUMIN 2.5 g/dL (3.5-5.0); ALT/SGPT 49 U/L (21-72); AST/SGOT 117 U/L (17-59); BLOOD UREA NITROGEN 29 mg/dl (9-20); CALCIUM 7.6 mg/dL (8.4-10.2); GFR AFRICAN-AMERICAN > 60; GFR NON-AFRICAN AMERICAN > 60
--- NOTE | 2017-09-18 07:21 | CP.PCM.PN ---
Subjective - Date & Time of Evaluation Date of Evaluation: 09/18/17 Time of Evaluation: 07:19 - Subjective Subjective: pt coded overnight, found in asystole, intubated, central line R femoral, on levophed. per overnight hospitalist, large amount of mucus and saliva obstructing airway. Pt had complained of mild dyspnea earlier in evening and was further diuresed and given a nebulizer with some improvement. Obtaining CT Head and CTA Chest. Currently intubated and sedated, arousable to painful stimulation. Objective - Vital Signs/Intake and Output Vital Signs (last 24 hours): Temp Pulse Resp BP Pulse Ox 96.3 F L 91 H 16 113/6 L 100 09/18/17 03:15 09/18/17 03:15 09/18/17 03:15 09/18/17 03:15 09/18/17 03:15 General: sedated, intubated, arousable to painful stim HEENT: NCAT, PERRL, EOMI HEART: RRR, S1, S2 no MRG LUNG: CTAB, no WRR ABD: soft, NT, ND, no mass, no HSM EXT: warm, well perfused NEURO: sedated, reflexes intact SKIN: warm, dry PSYCH: unable to assess 2/2 sedation Intake and Output: 09/18/17 09/18/17 06:59 18:59 Intake Total 1550 Output Total 50 Balance 1500 - Medications Medications: Current Medications Acetaminophen (Tylenol 650mg/20.3ml Solution Ud) 975 mg NG Q6 PRN PRN Reason: Rigors Albuterol/Ipratropium (Duoneb 3 Mg/0.5 Mg (3 Ml) Ud) 3 ml INH RQ6 PRN PRN Reason: Shortness of Breath Last Admin: 09/18/17 01:18 Dose: 3 ml Artificial Tears (Lacri-Lube) 1 applic OU HS TIMUR Cisatracurium Besylate (Nimbex) 7.32 mg IV ONCE PRN; Protocol PRN Reason: shivering Dextrose (Dextrose 50% Inj) 0 ml IV STAT PRN; Protocol PRN Reason: Hypoglycemia Protocol Dextrose (Glutose 15) 0 gm PO ONCE PRN; Protocol PRN Reason: Hypoglycemia Protocol Docusate Sodium (Colace) 100 mg PO BID TIMUR Last Admin: 09/17/17 18:11 Dose: 100 mg Enoxaparin Sodium (Lovenox) 40 mg SC DAILY TIMUR PRN Reason: Protocol Last Admin: 09/17/17 09:30 Dose: 40 mg Glucagon (Glucagen Diagnostic Kit) 0 mg IM STAT PRN; Protocol PRN Reason: Hypoglycemia Protocol Azithromycin 500 mg/ Sodium (Chloride) 250 mls @ 250 mls/hr IVPB DAILY TIMUR PRN Reason: Protocol Last Admin: 09/17/17 11:00 Dose: 250 mls/hr Ceftriaxone Sodium 1 gm/ (Sodium Chloride) 100 mls @ 100 mls/hr IVPB DAILY TIMUR PRN Reason: Protocol Last Admin: 09/17/17 10:23 Dose: 100 mls/hr Propofol (Diprivan) 1,000 mg in 100 mls @ 2.196 mls/hr IV .Q24H TIMUR; 5 MCG/KG/ MIN PRN Reason: Protocol Stop: 09/19/17 02:48 Last Titration: 09/18/17 04:05 Dose: 30 mcg/kg/min, 13.178 mls/hr Dextrose/Sodium Chloride (Dextrose 5%/0.45% Ns 1000 Ml) 1,000 mls @ 100 mls/hr IV .Q10H TIMUR Stop: 09/18/17 12:59 Last Admin: 09/18/17 03:00 Dose: 100 mls/hr Norepinephrine Bitartrate 4 mg (/ Dextrose) 254 mls @ 9.52 mls/hr IV .Q24H ONE ; 2.5 MCG/MIN PRN Reason: Protocol Stop: 09/19/17 02:09 Last Titration: 09/18/17 06:13 Dose: 10 mcg/min, 38.1 mls/hr Insulin Human Regular 100 (units/ Sodium Chloride) 101 mls @ 4.04 mls/hr IV .Q24H TIMUR; 4 UNITS/HR PRN Reason: Protocol Pantoprazole Sodium (Protonix Inj) 40 mg IVP DAILY TIMUR - Labs Labs: 09/18/17 02:25 09/18/17 04:20 PT 17.4 Seconds (9.8-13.1) H 09/18/17 02:25 INR 1.6 (0.9-1.2) H 09/18/17 02:25 Assessment and Plan - Assessment and Plan (Free Text) Plan: 57 year old male unknown past medical history was seen in the emergency department earlier yesterday afternoon for testicular pain, and was discharged. He was then found outside the ED, laying down on the ground refusing to leave. Patient was to be cleared by psych for discharge, however was noted to have lower extremity edema. Patient was sedated with Haldol 5 and Ativan 2, and is currently unable to answer any questions. +Cough, no sputum, Afebrile, no WBC, however BNP 8K and CXR shows both vascular congestion and questionable RLL infiltrates. He is HD stable, NAD. Procalcitonin and lower extremity ultrasounds pending. Mild crackles on exam with lower extremity edema, no dyspnea. Gentle diuresis, and empirically treat for CAP. Overnight: asystole, intubated, central line R femoral, off levophed now. per overnight hospitalist, large amount of mucus and saliva obstructing airway. Pt had complained of mild dyspnea earlier in evening and was further diuresed and given a nebulizer with some improvement. Obtaining CT Head and CTA Chest. Currently intubated and sedated, arousable to painful stimulation. Acute CHF - unknown chronicity, unspecified type at this time - pedal edema, crackles, CXR +pulmonary vascular congestion - BNP 8090 - Lasix 20 mg IV daily - ECHO pending TOMORROW and then d/c - monitor RLL Pna - afebrile no WBC but +CXR - procalcitonin pending, neg x1, trend, if neg x2 then d/c abx tomrrow - on azithromycin and ceftriaxone empirically VTE lovenox
--- NOTE | 2017-09-18 07:41 | CARD ---
APPROVED REPORT EKG Measurement Heart [id number] CO [id number] [id number] <Conclusion> Normal sinus rhythm T wave abnormality, consider Ant/Septal wall ischemia Prolonged QT Abnormal ECG
[2017-09-18] MEDS: Enoxaparin 40 mg Syringe SC SCH (08:46)
[2017-09-18] MEDS: metroNIDAZOLE 500mg/100ml NS 100 ML IVPB SCH ×2 (09:32→16:49)
--- NOTE | 2017-09-18 09:46 | RAD ---
HISTORY: code blue COMPARISON: Chest radiograph dated 09/16/2017 FINDINGS: LUNGS: Worsening of bilateral infiltrates. PLEURA: Left apical/apical lateral pleural thickening/loculated pleural fluid. No pneumothorax apparent. CARDIOVASCULAR: Cardiomediastinal silhouette stably enlarged. OSSEOUS STRUCTURES: Unchanged. VISUALIZED UPPER ABDOMEN: Normal. OTHER FINDINGS: New endotracheal tube with tip at the level of the clavicular heads. IMPRESSION: New endotracheal tube in satisfactory position. Left apical/apical lateral pleural thickening/loculated pleural fluid. Worsening of bilateral infiltrates, specifically in the right upper lobe
--- NOTE | 2017-09-18 09:51 | RAD ---
HISTORY: Intubated/ reevaluate COMPARISON: Chest radiograph performed approximately 2.5 hours prior FINDINGS: LUNGS: No significant change in bilateral infiltrates. PLEURA: Similar left apical/apical lateral pleural thickening/ loculated pleural fluid no pneumothorax apparent. CARDIOVASCULAR: Cardiomediastinal silhouette stably enlarged. OSSEOUS STRUCTURES: Unchanged. VISUALIZED UPPER ABDOMEN: Normal. OTHER FINDINGS: New enteric tube with tip in the stomach. Endotracheal tube, unchanged. IMPRESSION: New enteric tube in satisfactory position. No other significant interval change.
[2017-09-18] MEDS ORDERED: Sodium Chloride 3% for Inhalation 4 ML VIAL.NEB IH PRN (10:53)
--- NOTE | 2017-09-18 11:08 | CP.CCUPN ---
CCU Subjective - Physician Review Subjective (Free Text): Events overnight noted, primary respiratory event with significant hypoxemia leading to secondary cardiac arrest and asystole. Code Blue resuscitation lasted approx. 11 minutes, with anglican of rhythm to sinus tachy and ROSC. Started on hypothermia protocol, but patient noted to be spontaneously moving all extremities. Propofol infusion stopped this AM, when Temp was 33.4C and after an hour, spontaneously opening eyes, and withdrawing all extremities to pain, but not following commands, eye staring noted, but interactive to confrontation. Other VS and I/Os reviewed. ROS: No other pertinent negs or positives on 10+ system review obtainable due to present neuro mental status and intub ated state. PMSFH: All other Nursing and physician documentation reviewed to date; no new pertinent info noted relevant to current medical problems. EXAM- HEENT: no icterus, no gaze preference, pupils 2 mm equal and sluggishly reactive , no icterus NECK: No JVD, supple, carotids equal upstroke bilat/no bruits CHEST: decreased BS bases, no wheezes audible HEART: regular distant, tachy S1S2, no rubs. ABD: soft, no distention, no tympany, no palp tenderness, BS hypoactive. EXT: No edema / anasarca bilat. No peripheral/ digital cyanosis, no calf tenderness or palpable cords, distal pulses intact and symmetrical. NEURO: diminished tone all extremities SKIN: no rashes, warm and dry. LABS: Lactate 10.9 to 3.2 WBC=9.8 HGB= 9.7 PLTs= 248 K INR= 1.6 ABG= 7.22/ 66/112 on 80% oxygen. Na= 136 K= 5.4 HCO3= 26 CL= 97 BUN/Cr= 29/1.1 BS= 311 IMPRESSION / MAJOR PROBLEMS NOW: 1. Acute Hypoxemic Resp Failure with Resp Arrest 2 Aspiration event ( oropharyngeal pooling noted, required suctioning prior to and during intubation ) 2. Secondary Cardiac Arrest 3. Anoxic encephalopathy, r/o other Toxic-Metabolic Encephalopathy 4. Azotemia, r/o ANTON / ATN with mild Hyperkalemia 5. Hypoglycemic episode PLAN: 1. MV support, CXR shows progressive worsening infiltrates (R worse than L) from 09/16. Get Sputum C&S, on empiric Rocephin / Azithromycin, he is allergic to PEN. Consider changing coverage to Flagyl and Cipro; obtain ID eval. 2. Watch peak airway pressures, no autopeep noted via vent graphics. Add Duonebs Q4-6H. 3. CT Brain. UDS is all negative. Neurochecks Q2H, Seizure precautions, HOB elevation. 4. Discontinue therapeutic hypothermia. Monitor serial Lactates, wean vasopressors, ECHO. Cardiology eval. 5. See orders. CCU Objective - Vital Signs / Intake & Output Vital Signs (Last 4 hours): Vital Signs Temp Temp Pulse Pulse Resp Resp BP 09/18/17 10:06 79 18 113/79 09/18/17 09:00 34 F L 76 18 118/74 09/18/17 08:40 33.9 F L 76 18 09/18/17 08:38 93.0 F L 75 18 104/75 09/18/17 08:27 91.9 F L 62 18 09/18/17 08:06 91.9 F L 78 17 104/76 09/18/17 08:00 109 H 24 126/43 L 09/18/17 07:59 91.4 F L 62 16 122/84 BP Pulse Ox 09/18/17 10:06 100 09/18/17 09:00 100 09/18/17 08:40 104/76 09/18/17 08:38 100 09/18/17 08:27 122/84 09/18/17 08:06 100 09/18/17 08:00 95 09/18/17 07:59 100 Intake and Output (Last 8hrs): Intake & Output 09/17/17 09/18/17 09/18/17 22:59 06:59 14:59 Intake Total 1850 808 Output Total 750 275 Balance 1100 533 Weight 161 lb 6.4 oz Intake: IV 1550 408 Intake, Piggyback 400 Oral 300 Output: Gastric Amount 200 Stomach 200 Urine 550 275 Urethral (Mendiola) 500 275 Urine, Voided 50 - Medications Active Medications: Active Medications Generic Name Dose Route Start Last Admin Trade Name Freq PRN Reason Stop Dose Admin Acetaminophen 975 mg 09/18/17 02:30 Tylenol 650mg/20.3ml Solution Ud NG Q6 PRN Rigors Albuterol/Ipratropium 3 ml 09/18/17 12:00 Duoneb 3 Mg/0.5 Mg (3 Ml) Ud INH RQ4 TIMUR Artificial Tears 1 applic 09/18/17 22:00 Lacri-Lube OU HS TIMUR Dextrose 0 ml 09/18/17 05:13 Dextrose 50% Inj IV STAT PRN Hypoglycemia Protocol Protocol Dextrose 0 gm 09/18/17 05:13 Glutose 15 PO ONCE PRN Hypoglycemia Protocol Protocol Docusate Sodium 100 mg 09/16/17 09:00 09/18/17 08:48 Colace PO Not Given BID TIMUR Enoxaparin Sodium 40 mg 09/16/17 09:00 09/18/17 08:46 Lovenox SC 40 mg DAILY TIMUR Administration Protocol Glucagon 0 mg 09/18/17 05:13 Glucagen Diagnostic Kit IM STAT PRN Hypoglycemia Protocol Protocol Dextrose/Sodium Chloride 1,000 mls @ 100 mls/hr 09/18/17 03:00 09/18/17 03:00 Dextrose 5%/0.45% Ns 1000 Ml IV 09/18/17 12:59 100 mls/hr .Q10H TIMUR Administration Norepinephrine Bitartrate 4 mg 254 mls @ 9.52 mls/hr 09/18/17 02:10 09/18/17 09:34 / Dextrose IV 09/19/17 02:09 0.65 mcg/min .Q24H ONE 2.5 mls/hr Protocol Titration 2.5 MCG/MIN Insulin Human Regular 100 101 mls @ 4.04 mls/hr 09/18/17 05:15 09/18/17 09:34 units/ Sodium Chloride IV Not Given .Q24H TIMUR Protocol 4 UNITS/HR Ceftriaxone Sodium 1 gm/ 100 mls @ 0 mls/hr 09/18/17 09:00 09/18/17 09:33 Sodium Chloride IVPB 100 mls/hr DAILY TIMUR Administration Protocol Metronidazole 100 mls @ 100 mls/hr 09/18/17 09:00 09/18/17 09:32 Flagyl 500mg/100ml Ns IVPB 100 mls/hr Q8 TIMUR Administration Protocol Pantoprazole Sodium 40 mg 09/18/17 09:00 09/18/17 08:46 Protonix Inj IVP 40 mg DAILY TIMUR Administration - Patient Studies Lab Studies: Lab Studies 09/18/17 09/18/17 09/18/17 Range/Units 08:32 07:26 06:26 WBC (4.8-10.8) K/uL RBC (4.40-5.90) Mil/uL Hgb (12.0-18.0) g/dL Hct (35.0-51.0) % MCV (80.0-94.0) fl MCH (27.0-31.0) pg MCHC (33.0-37.0) g/dL RDW (11.5-14.5) % Plt Count (130-400) K/uL MPV (7.2-11.7) fl Neut % (Auto) (50.0-75.0) % Lymph % (Auto) (20.0-40.0) % [place] % (Auto) (0.0-10.0) % Eos % (Auto) (0.0-4.0) % Baso % (Auto) (0.0-2.0) % Neut # (Auto) (1.8-7.0) K/uL Lymph # (Auto) (1.0-4.3) K/uL [place] # (Auto) (0.0-0.8) K/uL Eos # (Auto) (0.0-0.7) K/uL Baso # (Auto) (0.0-0.2) K/uL PT (9.8-13.1) Seconds INR (0.9-1.2) pCO2 (35-45) mm/Hg pO2 (80-100) mm/Hg HCO3 (21-28) mmol/L ABG pH (7.35-7.45) ABG Total CO2 (22-28) mmol/L ABG O2 Saturation (95-98) % ABG Base Excess (-2.0-3.0) mmol/L Cecilio Test ABG Potassium (3.6-5.2) mmol/L A-a O2 Difference mm/Hg Glucose (75-110) mg/dL Lactate (0.7-2.1) mmol/L Vent Mode Mechanical Rate FiO2 % Tidal Volume PEEP Crit Value Called To Crit Value Called By Crit Value Read Back Blood Gas Notified Time Sodium (132-148) mmol/l Potassium (3.6-5.0) MMOL/L Chloride (98-107) mmol/L Carbon Dioxide (22-30) mmol/L Anion Gap (10-20) BUN (9-20) mg/dl Creatinine (0.8-1.5) mg/dl Est GFR ( Amer) Est GFR (Non-Af Amer) POC Glucose (mg/dL) 184 H 279 H 220 H (65-110) mg/dL Random Glucose (75-110) mg/dL Lactic Acid (0.7-2.1) MMOL/L Calcium (8.4-10.2) mg/dL Phosphorus (2.5-4.5) mg/dl Magnesium (1.6-2.3) MG/DL Total Bilirubin (0.2-1.3) mg/dl AST (17-59) U/L ALT (21-72) U/L Alkaline Phosphatase (38-126) U/L Troponin I (0.00-0.120) ng/mL NT-Pro-B Natriuret Pep (0-900) pg/ml Total Protein (6.3-8.2) G/DL Albumin (3.5-5.0) g/dL Globulin (2.2-3.9) gm/dL Albumin/Globulin Ratio (1.0-2.1) Procalcitonin (0.19-0.49) NG/ML Arterial Blood Potassium (3.6-5.2) mmol/L 09/18/17 09/18/17 09/18/17 Range/Units 05:50 04:41 04:39 WBC (4.8-10.8) K/uL RBC (4.40-5.90) Mil/uL Hgb (12.0-18.0) g/dL Hct (35.0-51.0) % MCV (80.0-94.0) fl MCH (27.0-31.0) pg MCHC (33.0-37.0) g/dL RDW (11.5-14.5) % Plt Count (130-400) K/uL MPV (7.2-11.7) fl Neut % (Auto) (50.0-75.0) % Lymph % (Auto) (20.0-40.0) % [place] % (Auto) (0.0-10.0) % Eos % (Auto) (0.0-4.0) % Baso % (Auto) (0.0-2.0) % Neut # (Auto) (1.8-7.0) K/uL Lymph # (Auto) (1.0-4.3) K/uL [place] # (Auto) (0.0-0.8) K/uL Eos # (Auto) (0.0-0.7) K/uL Baso # (Auto) (0.0-0.2) K/uL PT (9.8-13.1) Seconds INR (0.9-1.2) pCO2 66 H (35-45) mm/Hg pO2 112 H (80-100) mm/Hg HCO3 23.2 (21-28) mmol/L ABG pH 7.22 L (7.35-7.45) ABG Total CO2 29.0 H (22-28) mmol/L ABG O2 Saturation 99.2 H (95-98) % ABG Base Excess -2.2 L (-2.0-3.0) mmol/L Cecilio Test Yes ABG Potassium 4.8 (3.6-5.2) mmol/L A-a O2 Difference 376.0 mm/Hg Glucose 315 H (75-110) mg/dL Lactate 3.9 H (0.7-2.1) mmol/L Vent Mode A/c Mechanical Rate 16 FiO2 80.0 % Tidal Volume 500 PEEP 0 Crit Value Called To Crit Value Called By Crit Value Read Back Blood Gas Notified Time Sodium 132.0 (132-148) mmol/l Potassium (3.6-5.0) MMOL/L Chloride 98.0 (98-107) mmol/L Carbon Dioxide (22-30) mmol/L Anion Gap (10-20) BUN (9-20) mg/dl Creatinine (0.8-1.5) mg/dl Est GFR ( Amer) Est GFR (Non-Af Amer) POC Glucose (mg/dL) 197 H 243 H (65-110) mg/dL Random Glucose (75-110) mg/dL Lactic Acid (0.7-2.1) MMOL/L Calcium (8.4-10.2) mg/dL Phosphorus (2.5-4.5) mg/dl Magnesium (1.6-2.3) MG/DL Total Bilirubin (0.2-1.3) mg/dl AST (17-59) U/L ALT (21-72) U/L Alkaline Phosphatase (38-126) U/L Troponin I (0.00-0.120) ng/mL NT-Pro-B Natriuret Pep (0-900) pg/ml Total Protein (6.3-8.2) G/DL Albumin (3.5-5.0) g/dL Globulin (2.2-3.9) gm/dL Albumin/Globulin Ratio (1.0-2.1) Procalcitonin (0.19-0.49) NG/ML Arterial Blood Potassium 4.8 (3.6-5.2) mmol/L 09/18/17 09/18/17 09/18/17 Range/Units 04:20 04:20 04:20 WBC 9.8 (4.8-10.8) K/uL RBC 4.48 (4.40-5.90) Mil/uL Hgb 9.7 L (12.0-18.0) g/dL Hct 33.5 L (35.0-51.0) % MCV 74.7 L (80.0-94.0) fl MCH 21.6 L (27.0-31.0) pg MCHC 29.0 L (33.0-37.0) g/dL RDW 18.8 H (11.5-14.5) % Plt Count 248 (130-400) K/uL MPV (7.2-11.7) fl Neut % (Auto) (50.0-75.0) % Lymph % (Auto) (20.0-40.0) % [place] % (Auto) (0.0-10.0) % Eos % (Auto) (0.0-4.0) % Baso % (Auto) (0.0-2.0) % Neut # (Auto) (1.8-7.0) K/uL Lymph # (Auto) (1.0-4.3) K/uL [place] # (Auto) (0.0-0.8) K/uL Eos # (Auto) (0.0-0.7) K/uL Baso # (Auto) (0.0-0.2) K/uL PT (9.8-13.1) Seconds INR (0.9-1.2) pCO2 (35-45) mm/Hg pO2 (80-100) mm/Hg HCO3 (21-28) mmol/L ABG pH (7.35-7.45) ABG Total CO2 (22-28) mmol/L ABG O2 Saturation (95-98) % ABG Base Excess (-2.0-3.0) mmol/L Cecilio Test ABG Potassium (3.6-5.2) mmol/L A-a O2 Difference mm/Hg Glucose (75-110) mg/dL Lactate (0.7-2.1) mmol/L Vent Mode Mechanical Rate FiO2 % Tidal Volume PEEP Crit Value Called To Crit Value Called By Crit Value Read Back Blood Gas Notified Time Sodium 136 (132-148) mmol/l Potassium 5.4 H (3.6-5.0) MMOL/L Chloride 97 L (98-107) mmol/L Carbon Dioxide 26 (22-30) mmol/L Anion Gap 18 (10-20) BUN 29 H (9-20) mg/dl Creatinine 1.1 (0.8-1.5) mg/dl Est GFR ( Amer) > 60 Est GFR (Non-Af Amer) > 60 POC Glucose (mg/dL) (65-110) mg/dL Random Glucose 311 H (75-110) mg/dL Lactic Acid 4.5 H* (0.7-2.1) MMOL/L Calcium 7.6 L (8.4-10.2) mg/dL Phosphorus (2.5-4.5) mg/dl Magnesium (1.6-2.3) MG/DL Total Bilirubin 0.9 (0.2-1.3) mg/dl AST 117 H (17-59) U/L ALT 49 (21-72) U/L Alkaline Phosphatase 210 H (38-126) U/L Troponin I (0.00-0.120) ng/mL NT-Pro-B Natriuret Pep (0-900) pg/ml Total Protein 6.6 (6.3-8.2) G/DL Albumin 2.5 L (3.5-5.0) g/dL Globulin 4.1 H (2.2-3.9) gm/dL Albumin/Globulin Ratio 0.6 L (1.0-2.1) Procalcitonin (0.19-0.49) NG/ML Arterial Blood Potassium (3.6-5.2) mmol/L 09/18/17 09/18/17 09/18/17 Range/Units 03:26 03:10 02:38 WBC (4.8-10.8) K/uL RBC (4.40-5.90) Mil/uL Hgb (12.0-18.0) g/dL Hct (35.0-51.0) % MCV (80.0-94.0) fl MCH (27.0-31.0) pg MCHC (33.0-37.0) g/dL RDW (11.5-14.5) % Plt Count (130-400) K/uL MPV (7.2-11.7) fl Neut % (Auto) (50.0-75.0) % Lymph % (Auto) (20.0-40.0) % [place] % (Auto) (0.0-10.0) % Eos % (Auto) (0.0-4.0) % Baso % (Auto) (0.0-2.0) % Neut # (Auto) (1.8-7.0) K/uL Lymph # (Auto) (1.0-4.3) K/uL [place] # (Auto) (0.0-0.8) K/uL Eos # (Auto) (0.0-0.7) K/uL Baso # (Auto) (0.0-0.2) K/uL PT (9.8-13.1) Seconds INR (0.9-1.2) pCO2 (35-45) mm/Hg pO2 (80-100) mm/Hg HCO3 (21-28) mmol/L ABG pH (7.35-7.45) ABG Total CO2 (22-28) mmol/L ABG O2 Saturation (95-98) % ABG Base Excess (-2.0-3.0) mmol/L Cecilio Test ABG Potassium (3.6-5.2) mmol/L A-a O2 Difference mm/Hg Glucose (75-110) mg/dL Lactate (0.7-2.1) mmol/L Vent Mode Mechanical Rate FiO2 % Tidal Volume PEEP Crit Value Called To Crit Value Called By Crit Value Read Back Blood Gas Notified Time Sodium (132-148) mmol/l Potassium (3.6-5.0) MMOL/L Chloride (98-107) mmol/L Carbon Dioxide (22-30) mmol/L Anion Gap (10-20) BUN (9-20) mg/dl Creatinine (0.8-1.5) mg/dl Est GFR ( Amer) Est GFR (Non-Af Amer) POC Glucose (mg/dL) 199 H < 20 L* (65-110) mg/dL Random Glucose (75-110) mg/dL Lactic Acid (0.7-2.1) MMOL/L Calcium (8.4-10.2) mg/dL Phosphorus (2.5-4.5) mg/dl Magnesium (1.6-2.3) MG/DL Total Bilirubin (0.2-1.3) mg/dl AST (17-59) U/L ALT (21-72) U/L Alkaline Phosphatase (38-126) U/L Troponin I 0.0560 (0.00-0.120) ng/mL NT-Pro-B Natriuret Pep (0-900) pg/ml Total Protein (6.3-8.2) G/DL Albumin (3.5-5.0) g/dL Globulin (2.2-3.9) gm/dL Albumin/Globulin Ratio (1.0-2.1) Procalcitonin (0.19-0.49) NG/ML Arterial Blood Potassium (3.6-5.2) mmol/L 09/18/17 09/18/17 09/18/17 Range/Units 02:30 02:25 02:25 WBC (4.8-10.8) K/uL RBC (4.40-5.90) Mil/uL Hgb (12.0-18.0) g/dL Hct (35.0-51.0) % MCV (80.0-94.0) fl MCH (27.0-31.0) pg MCHC (33.0-37.0) g/dL RDW (11.5-14.5) % Plt Count (130-400) K/uL MPV (7.2-11.7) fl Neut % (Auto) (50.0-75.0) % Lymph % (Auto) (20.0-40.0) % [place] % (Auto) (0.0-10.0) % Eos % (Auto) (0.0-4.0) % Baso % (Auto) (0.0-2.0) % Neut # (Auto) (1.8-7.0) K/uL Lymph # (Auto) (1.0-4.3) K/uL [place] # (Auto) (0.0-0.8) K/uL Eos # (Auto) (0.0-0.7) K/uL Baso # (Auto) (0.0-0.2) K/uL PT 17.4 H (9.8-13.1) Seconds INR 1.6 H (0.9-1.2) pCO2 67 H (35-45) mm/Hg pO2 232 H (80-100) mm/Hg HCO3 18.3 L (21-28) mmol/L ABG pH 7.11 L* (7.35-7.45) ABG Total CO2 23.4 (22-28) mmol/L ABG O2 Saturation 100.3 H (95-98) % ABG Base Excess -8.5 L (-2.0-3.0) mmol/L Cecilio Test Yes ABG Potassium 4.7 (3.6-5.2) mmol/L A-a O2 Difference 397.0 mm/Hg Glucose 23 L* (75-110) mg/dL Lactate 10.2 H* (0.7-2.1) mmol/L Vent Mode A/c Mechanical Rate 14 FiO2 100.0 % Tidal Volume 500 PEEP 5 Crit Value Called To Joes llamas md Crit Value Called By 302 Crit Value Read Back Y Blood Gas Notified Time 235 Sodium 135.0 (132-148) mmol/l Potassium (3.6-5.0) MMOL/L Chloride 99.0 (98-107) mmol/L Carbon Dioxide (22-30) mmol/L Anion Gap (10-20) BUN (9-20) mg/dl Creatinine (0.8-1.5) mg/dl Est GFR ( Amer) Est GFR (Non-Af Amer) POC Glucose (mg/dL) (65-110) mg/dL Random Glucose (75-110) mg/dL Lactic Acid 9.5 H* (0.7-2.1) MMOL/L Calcium (8.4-10.2) mg/dL Phosphorus (2.5-4.5) mg/dl Magnesium (1.6-2.3) MG/DL Total Bilirubin (0.2-1.3) mg/dl AST (17-59) U/L ALT (21-72) U/L Alkaline Phosphatase (38-126) U/L Troponin I (0.00-0.120) ng/mL NT-Pro-B Natriuret Pep (0-900) pg/ml Total Protein (6.3-8.2) G/DL Albumin (3.5-5.0) g/dL Globulin (2.2-3.9) gm/dL Albumin/Globulin Ratio (1.0-2.1) Procalcitonin (0.19-0.49) NG/ML Arterial Blood Potassium 4.7 (3.6-5.2) mmol/L 09/18/17 09/18/17 09/17/17 Range/Units 02:25 02:25 07:25 WBC 9.5 (4.8-10.8) K/uL RBC 4.64 (4.40-5.90) Mil/uL Hgb 10.0 L (12.0-18.0) g/dL Hct 34.9 L (35.0-51.0) % MCV 75.2 L (80.0-94.0) fl MCH 21.6 L (27.0-31.0) pg MCHC 28.8 L (33.0-37.0) g/dL RDW 19.2 H (11.5-14.5) % Plt Count 247 (130-400) K/uL MPV 8.0 (7.2-11.7) fl Neut % (Auto) 60.1 (50.0-75.0) % Lymph % (Auto) 32.2 (20.0-40.0) % [place] % (Auto) 5.6 (0.0-10.0) % Eos % (Auto) 0.0 (0.0-4.0) % Baso % (Auto) 2.1 H (0.0-2.0) % Neut # (Auto) 5.7 (1.8-7.0) K/uL Lymph # (Auto) 3.1 (1.0-4.3) K/uL [place] # (Auto) 0.5 (0.0-0.8) K/uL Eos # (Auto) 0.0 (0.0-0.7) K/uL Baso # (Auto) 0.2 (0.0-0.2) K/uL PT (9.8-13.1) Seconds INR (0.9-1.2) pCO2 (35-45) mm/Hg pO2 (80-100) mm/Hg HCO3 (21-28) mmol/L ABG pH (7.35-7.45) ABG Total CO2 (22-28) mmol/L ABG O2 Saturation (95-98) % ABG Base Excess (-2.0-3.0) mmol/L Cecilio Test ABG Potassium (3.6-5.2) mmol/L A-a O2 Difference mm/Hg Glucose (75-110) mg/dL Lactate (0.7-2.1) mmol/L Vent Mode Mechanical Rate FiO2 % Tidal Volume PEEP Crit Value Called To Crit Value Called By Crit Value Read Back Blood Gas Notified Time Sodium 141 (132-148) mmol/l Potassium 5.1 H (3.6-5.0) MMOL/L Chloride 98 (98-107) mmol/L Carbon Dioxide 21 L (22-30) mmol/L Anion Gap 27 H (10-20) BUN 27 H (9-20) mg/dl Creatinine 1.2 (0.8-1.5) mg/dl Est GFR ( Amer) > 60 Est GFR (Non-Af Amer) > 60 POC Glucose (mg/dL) (65-110) mg/dL Random Glucose 22 L* D (75-110) mg/dL Lactic Acid (0.7-2.1) MMOL/L Calcium 8.3 L (8.4-10.2) mg/dL Phosphorus 7.3 H (2.5-4.5) mg/dl Magnesium 1.7 (1.6-2.3) MG/DL Total Bilirubin 1.1 (0.2-1.3) mg/dl AST 104 H D (17-59) U/L ALT 45 (21-72) U/L Alkaline Phosphatase 225 H D (38-126) U/L Troponin I 0.0570 (0.00-0.120) ng/mL NT-Pro-B Natriuret Pep 96740 H (0-900) pg/ml Total Protein 7.2 (6.3-8.2) G/DL Albumin 2.8 L (3.5-5.0) g/dL Globulin 4.3 H (2.2-3.9) gm/dL Albumin/Globulin Ratio 0.7 L (1.0-2.1) Procalcitonin 0.05 L (0.19-0.49) NG/ML Arterial Blood Potassium (3.6-5.2) mmol/L Laboratory Results - last 24 hr 09/17/17 09/18/17 09/18/17 07:25 02:25 02:25 WBC 9.5 RBC 4.64 Hgb 10.0 L Hct 34.9 L MCV 75.2 L MCH 21.6 L MCHC 28.8 L RDW 19.2 H Plt Count 247 MPV 8.0 Neut % (Auto) 60.1 Lymph % (Auto) 32.2 [place] % (Auto) 5.6 Eos % (Auto) 0.0 Baso % (Auto) 2.1 H Neut # (Auto) 5.7 Lymph # (Auto) 3.1 [place] # (Auto) 0.5 Eos # (Auto) 0.0 Baso # (Auto) 0.2 PT INR pCO2 pO2 HCO3 ABG pH ABG Total CO2 ABG O2 Saturation ABG Base Excess Cecilio Test ABG Potassium A-a O2 Difference Glucose Lactate Vent Mode Mechanical Rate FiO2 Tidal Volume PEEP Crit Value Called To Crit Value Called By Crit Value Read Back Blood Gas Notified Time Sodium 141 Potassium 5.1 H Chloride 98 Carbon Dioxide 21 L Anion Gap 27 H BUN 27 H Creatinine 1.2 Est GFR ( Amer) > 60 Est GFR (Non-Af Amer) > 60 POC Glucose (mg/dL) Random Glucose 22 L* D Lactic Acid Calcium 8.3 L Phosphorus 7.3 H Magnesium 1.7 Total Bilirubin 1.1 AST 104 H D ALT 45 Alkaline Phosphatase 225 H D Troponin I 0.0570 NT-Pro-B Natriuret Pep 54646 H Total Protein 7.2 Albumin 2.8 L Globulin 4.3 H Albumin/Globulin Ratio 0.7 L Procalcitonin 0.05 L Arterial Blood Potassium 09/18/17 09/18/17 09/18/17 02:25 02:25 02:30 WBC RBC Hgb Hct MCV MCH MCHC RDW Plt Count MPV Neut % (Auto) Lymph % (Auto) [place] % (Auto) Eos % (Auto) Baso % (Auto) Neut # (Auto) Lymph # (Auto) [place] # (Auto) Eos # (Auto) Baso # (Auto) PT 17.4 H INR 1.6 H pCO2 67 H pO2 232 H HCO3 18.3 L ABG pH 7.11 L* ABG Total CO2 23.4 ABG O2 Saturation 100.3 H ABG Base Excess -8.5 L Cecilio Test Yes ABG Potassium 4.7 A-a O2 Difference 397.0 Glucose 23 L* Lactate 10.2 H* Vent Mode A/c Mechanical Rate 14 FiO2 100.0 Tidal Volume 500 PEEP 5 Crit Value Called To Jose llamas md Crit Value Called By 302 Crit Value Read Back Y Blood Gas Notified Time 235 Sodium 135.0 Potassium Chloride 99.0 Carbon Dioxide Anion Gap BUN Creatinine Est GFR ( Amer) Est GFR (Non-Af Amer) POC Glucose (mg/dL) Random Glucose Lactic Acid 9.5 H* Calcium Phosphorus Magnesium Total Bilirubin AST ALT Alkaline Phosphatase Troponin I NT-Pro-B Natriuret Pep Total Protein Albumin Globulin Albumin/Globulin Ratio Procalcitonin Arterial Blood Potassium 4.7 09/18/17 09/18/17 09/18/17 02:38 03:10 03:26 WBC RBC Hgb Hct MCV MCH MCHC RDW Plt Count MPV Neut % (Auto) Lymph % (Auto) [place] % (Auto) Eos % (Auto) Baso % (Auto) Neut # (Auto) Lymph # (Auto) [place] # (Auto) Eos # (Auto) Baso # (Auto) PT INR pCO2 pO2 HCO3 ABG pH ABG Total CO2 ABG O2 Saturation ABG Base Excess Cecilio Test ABG Potassium A-a O2 Difference Glucose Lactate Vent Mode Mechanical Rate FiO2 Tidal Volume PEEP Crit Value Called To Crit Value Called By Crit Value Read Back Blood Gas Notified Time Sodium Potassium Chloride Carbon Dioxide Anion Gap BUN Creatinine Est GFR ( Amer) Est GFR (Non-Af Amer) POC Glucose (mg/dL) < 20 L* 199 H Random Glucose Lactic Acid Calcium Phosphorus Magnesium Total Bilirubin AST ALT Alkaline Phosphatase Troponin I 0.0560 NT-Pro-B Natriuret Pep Total Protein Albumin Globulin Albumin/Globulin Ratio Procalcitonin Arterial Blood Potassium 09/18/17 09/18/17 09/18/17 04:20 04:20 04:20 WBC 9.8 RBC 4.48 Hgb 9.7 L Hct 33.5 L MCV 74.7 L MCH 21.6 L MCHC 29.0 L RDW 18.8 H Plt Count 248 MPV Neut % (Auto) Lymph % (Auto) [place] % (Auto) Eos % (Auto) Baso % (Auto) Neut # (Auto) Lymph # (Auto) [place] # (Auto) Eos # (Auto) Baso # (Auto) PT INR pCO2 pO2 HCO3 ABG pH ABG Total CO2 ABG O2 Saturation ABG Base Excess Cecilio Test ABG Potassium A-a O2 Difference Glucose Lactate Vent Mode Mechanical Rate FiO2 Tidal Volume PEEP Crit Value Called To Crit Value Called By Crit Value Read Back Blood Gas Notified Time Sodium 136 Potassium 5.4 H Chloride 97 L Carbon Dioxide 26 Anion Gap 18 BUN 29 H Creatinine 1.1 Est GFR ( Amer) > 60 Est GFR (Non-Af Amer) > 60 POC Glucose (mg/dL) Random Glucose 311 H Lactic Acid 4.5 H* Calcium 7.6 L Phosphorus Magnesium Total Bilirubin 0.9 AST 117 H ALT 49 Alkaline Phosphatase 210 H Troponin I NT-Pro-B Natriuret Pep Total Protein 6.6 Albumin 2.5 L Globulin 4.1 H Albumin/Globulin Ratio 0.6 L Procalcitonin Arterial Blood Potassium 09/18/17 09/18/17 09/18/17 04:39 04:41 05:50 WBC RBC Hgb Hct MCV MCH MCHC RDW Plt Count MPV Neut % (Auto) Lymph % (Auto) [place] % (Auto) Eos % (Auto) Baso % (Auto) Neut # (Auto) Lymph # (Auto) [place] # (Auto) Eos # (Auto) Baso # (Auto) PT INR pCO2 66 H pO2 112 H HCO3 23.2 ABG pH 7.22 L ABG Total CO2 29.0 H ABG O2 Saturation 99.2 H ABG Base Excess -2.2 L Cecilio Test Yes ABG Potassium 4.8 A-a O2 Difference 376.0 Glucose 315 H Lactate 3.9 H Vent Mode A/c Mechanical Rate 16 FiO2 80.0 Tidal Volume 500 PEEP 0 Crit Value Called To Crit Value Called By Crit Value Read Back Blood Gas Notified Time Sodium 132.0 Potassium Chloride 98.0 Carbon Dioxide Anion Gap BUN Creatinine Est GFR ( Amer) Est GFR (Non-Af Amer) POC Glucose (mg/dL) 243 H 197 H Random Glucose Lactic Acid Calcium Phosphorus Magnesium Total Bilirubin AST ALT Alkaline Phosphatase Troponin I NT-Pro-B Natriuret Pep Total Protein Albumin Globulin Albumin/Globulin Ratio Procalcitonin Arterial Blood Potassium 4.8 09/18/17 09/18/17 09/18/17 06:26 07:26 08:32 WBC RBC Hgb Hct MCV MCH MCHC RDW Plt Count MPV Neut % (Auto) Lymph % (Auto) [place] % (Auto) Eos % (Auto) Baso % (Auto) Neut # (Auto) Lymph # (Auto) [place] # (Auto) Eos # (Auto) Baso # (Auto) PT INR pCO2 pO2 HCO3 ABG pH ABG Total CO2 ABG O2 Saturation ABG Base Excess Cecilio Test ABG Potassium A-a O2 Difference Glucose Lactate Vent Mode Mechanical Rate FiO2 Tidal Volume PEEP Crit Value Called To Crit Value Called By Crit Value Read Back Blood Gas Notified Time Sodium Potassium Chloride Carbon Dioxide Anion Gap BUN Creatinine Est GFR ( Amer) Est GFR (Non-Af Amer) POC Glucose (mg/dL) 220 H 279 H 184 H Random Glucose Lactic Acid Calcium Phosphorus Magnesium Total Bilirubin AST ALT Alkaline Phosphatase Troponin I NT-Pro-B Natriuret Pep Total Protein Albumin Globulin Albumin/Globulin Ratio Procalcitonin Arterial Blood Potassium EKG/Cardiology Studies: Cardiology / EKG Studies 09/18/17 EKG [ELECTROCARDIOGRAM] Stat Comment: Mode Of Transportation: Reason For Exam: code blue Fingerstick Blood Sugar Results: 184 Critical Care Progress Note - Ventilator Checklist Head of Bed 30 Degrees: Yes Daily Sedation Vacation: Yes Daily Assessment of Readiness to Wean: Yes Daily Spontaneous Breathing Trial: No PUD Prophalyxis: Yes DVT Prophylaxis: Yes Oral Care with Chlorhexidine Gluconate {CHG}: Yes - Vent Settings MODE:: ASSIST CONTROL TIDAL VOLUME:: 500 RESP RATE:: 22 FIO2:: 50 PEEP:: 5 - Extremities/Vascular Does the Patient have a Central Venous Catheter?: Yes Insertion Site: Femoral Vein Does the Patient need a Central Venous Catheter?: Yes Does the Patient have a [place] Catheter?: Yes Does the Patient need a [place] Catheter?: Yes Catheter Insertion Criteria: Need for accurate measurement of output in critically ill patient - Restraints Justification for Restraints: High risk for self extubation, High risk for removing IV access, High risk for harming self - Prophylaxis GI Prophylaxis GI: PPI - Prophylaxis DVT Prophylaxis DVT: Lovenox - Nutrition Nutrition: Nutrition Category Date Time Status NPO Diet [DIET] Diets 09/18/17 Breakfast Active
[2017-09-18] MEDS: Albuterol-Ipratrop 3 mg / 0.5 (3 ml) UD INH SCH ×3 (11:38→19:49)
--- NOTE | 2017-09-18 13:41 | CARD ---
APPROVED REPORT EKG Measurement Heart [id number] <Conclusion> Sinus rhythm with frequent premature ventricular complexes Minimal voltage criteria for LVH, may be normal variant Nonspecific T wave abnormality Abnormal ECG
[2017-09-18] MEDS ORDERED: Iodixanol 320 MG/ML 100 ML BOTTLE IV ONE (14:27)
[2017-09-18] MEDS ORDERED: Sodium Chloride 0.9% 100 ML ONE (14:28)
--- NOTE | 2017-09-18 15:49 | CT ---
PROCEDURE: CT Chest with contrast (Pulmonary Angiogram) HISTORY: dyspnea COMPARISON: None available. TECHNIQUE: Axial computed tomography images were obtained of the chest in the pulmonary arterial phase of enhancement. Coronal and sagittal reformatted images were created and reviewed. Maximum intensity projection (MIP) reconstructed images in the following planes: 3 orthogonal planes. Intravenous contrast dose: 98 cc Visipaque 320. Mean Hounsfield unit values in the main pulmonary artery: 349.09 Radiation dose: Total exam DLP = 410.83 mGy-cm. This CT exam was performed using one or more of the following dose reduction techniques: Automated exposure control, adjustment of the mA and/or kV according to patient size, and/or use of iterative reconstruction technique. FINDINGS: PULMONARY ARTERIES: Unremarkable. No pulmonary embolism. AORTA: No acute findings. No thoracic aortic aneurysm. LUNGS: Multifocal airspace disease bilaterally the overall appearance suggests pulmonary edema/ ARDS. PLEURAL SPACES: Small bilateral pleural effusions right larger than left. HEART: Unremarkable. No cardiomegaly. No significant pericardial effusion. LYMPH NODES: Subcarinal, right hilar, mediastinal adenopathy. Smaller left hilar lymph nodes identified. BONES, CHEST WALL: Unremarkable. No fracture or destructive lesion OTHER FINDINGS: Satisfactory position of support apparatus including endotracheal tube and nasogastric tube. IMPRESSION: 1. Unremarkable CT pulmonary angiogram. No pulmonary embolus. 2. Multifocal airspace disease suggestive of pulmonary edema/ARDS. 3. Adenopathy primarily right hilar and subcarinal. Middle mediastinal lymphadenopathy also identified.
[2017-09-18] MEDS: Propofol 10 mg/ml 1,000 MG/100 ML VIAL IV SCH ×2 (16:54→21:16)
[2017-09-18 20:01] LABS: VENOUS BLOOD GAS BASE EXCESS 2.2 mmol/L (0.0-2.0); VENOUS BLOOD GAS PCO2 49 mmHg (40-60); VENOUS BLOOD GAS PO2 28 mm/Hg (30-55); VENOUS BLOOD PH 7.37 (7.32-7.43)
[2017-09-18] MEDS ORDERED: DOBUTamine 500mg/250ml D5W 500 MG/250 ML BAG IV SCH (21:15)
[2017-09-18] MEDS: Mineral Oil/White Petrolatum Ophth Oint OU SCH (22:05)
[2017-09-19] MEDS: metroNIDAZOLE 500mg/100ml NS 100 ML IVPB SCH ×2 (00:33→08:53)
[2017-09-19] MEDS: Albuterol-Ipratrop 3 mg / 0.5 (3 ml) UD INH SCH ×6 (00:49→19:10)
[2017-09-19 04:47] LABS: ABG ALLEN TEST YES
[2017-09-19 05:25] LABS: HEMOGLOBIN 9.4 g/dL (12.0-18.0); MEAN CELL VOLUME 72.6 fl (80.0-94.0); MEAN CORPUSCULAR HEMOGLOBIN 21.5 pg (27.0-31.0); MEAN CORPUSCULAR HGB CONC 29.7 g/dL (33.0-37.0); RBC 4.35 Mil/uL (4.40-5.90); RED CELL DISTRIBUTION WIDTH 18.4 % (11.5-14.5); WHITE BLOOD COUNT 10.8 K/uL (4.8-10.8)
[2017-09-19 05:35] LABS: ALB/GLOB RATIO 0.7 (1.0-2.1); ALBUMIN 2.5 g/dL (3.5-5.0); ALT/SGPT 82 U/L (21-72); AST/SGOT 152 U/L (17-59); BLOOD UREA NITROGEN 37 mg/dl (9-20); CALCIUM 7.6 mg/dL (8.4-10.2); GFR AFRICAN-AMERICAN > 60; GFR NON-AFRICAN AMERICAN > 60
--- NOTE | 2017-09-19 07:38 | CP.PCM.PN ---
Subjective - Date & Time of Evaluation Date of Evaluation: 09/19/17 Time of Evaluation: 08:30 - Subjective Subjective: Patient seen and examined bedside.Intubated on MV PRVC AC mode 20/500/5/40 % with ABG 43/128/29/7.45 , sedated on Propofol drip ,responsive to verbal stimuli on Dobutamine drip BP 105/66 HR 97 Tmax 100.1 WBC 10.8 Hgb 9.4 INR 1.6 I/o 3083/730 CXR showed Objective - Vital Signs/Intake and Output Vital Signs (last 24 hours): Temp Pulse Resp BP Pulse Ox 99.2 F 97 H 20 105/66 100 09/19/17 07:00 09/19/17 07:00 09/19/17 07:00 09/19/17 07:00 09/19/17 07:00 Intake and Output: 09/19/17 09/19/17 06:59 18:59 Intake Total 1062 Output Total 300 Balance 762 - Medications Medications: Current Medications Acetaminophen (Tylenol 650mg/20.3ml Solution Ud) 975 mg NG Q6 PRN PRN Reason: Rigors Albuterol/Ipratropium (Duoneb 3 Mg/0.5 Mg (3 Ml) Ud) 3 ml INH RQ4 TIMUR Last Admin: 09/19/17 07:20 Dose: 3 ml Artificial Tears (Lacri-Lube) 1 applic OU HS TIMUR Last Admin: 09/18/17 22:05 Dose: 1 applic Dextrose (Dextrose 50% Inj) 0 ml IV STAT PRN; Protocol PRN Reason: Hypoglycemia Protocol Enoxaparin Sodium (Lovenox) 40 mg SC DAILY TIMUR PRN Reason: Protocol Last Admin: 09/18/17 08:46 Dose: 40 mg Ceftriaxone Sodium 1 gm/ (Sodium Chloride) 100 mls @ 0 mls/hr IVPB DAILY TIMUR PRN Reason: Protocol Stop: 09/19/17 12:00 Last Admin: 09/18/17 09:33 Dose: 100 mls/hr Metronidazole (Flagyl 500mg/100ml Ns) 100 mls @ 100 mls/hr IVPB Q8 TIMUR PRN Reason: Protocol Last Admin: 09/19/17 00:33 Dose: 100 mls/hr Propofol (Diprivan) 1,000 mg in 100 mls @ 2.196 mls/hr IV .Q24H TIMUR; 5 MCG/KG/ MIN PRN Reason: Protocol Stop: 09/19/17 15:39 Last Titration: 09/18/17 22:15 Dose: 15 mcg/kg/min, 6.589 mls/hr Dobutamine HCl/Dextrose (Dobutamine/Dextrose 5% 500mg/250ml) 500 mg in 250 mls @ 10.982 mls/hr IV .[id number] TIMUR PRN Reason: 5 MCG/KG/MIN Last Admin: 09/18/17 22:00 Dose: 10.982 mls/hr Ceftriaxone Sodium 1 gm/ (Sodium Chloride) 100 mls @ 0 mls/hr IVPB DAILY TIMUR PRN Reason: Protocol Pantoprazole Sodium (Protonix Inj) 40 mg IVP DAILY TIMUR Last Admin: 09/18/17 08:46 Dose: 40 mg - Labs Labs: 09/19/17 04:20 09/19/17 04:20 PT 17.4 Seconds (9.8-13.1) H 09/18/17 02:25 INR 1.6 (0.9-1.2) H 09/18/17 02:25 - Constitutional Appears: Chronically Ill, Other (intubated , sedated ) - Head Exam Head Exam: NORMOCEPHALIC - Eye Exam Eye Exam: PERRL - ENT Exam ENT Exam: Mucous Membranes Dry, Normal Exam - Neck Exam Neck Exam: Normal Inspection - Respiratory Exam Respiratory Exam: Rales. absent: Rhonchi, Wheezes, Respiratory Distress - Cardiovascular Exam Cardiovascular Exam: REGULAR RHYTHM, RRR, +S1, +S2. absent: JVD - GI/Abdominal Exam GI & Abdominal Exam: Soft, Normal Bowel Sounds. absent: Distended, Guarding, Tenderness, Rebound - Rectal Exam Rectal Exam: Deferred - Extremities Exam Extremities Exam: Pedal Edema (1+) Additional comments: bilateral big toes dry base callouses - Neurological Exam Additional comments: sedated responds to verbal command - Skin Skin Exam: Dry, Warm Assessment and Plan - Assessment and Plan (Free Text) Assessment: 57 year old male with unknown past medical history was seen in the emergency department earlier yesterday afternoon for testicular pain, and was discharged. He was then found outside the ED, laying down on the ground refusing to leave. Patient was to be cleared by psych for discharge, however was noted to have lower extremity edema. Patient was sedated with Haldol 5 and Ativan 2.+Cough, no sputum, Afebrile, no WBC, however BNP 8K and CXR showed vascular congestion and questionable RLL infiltrates. Mild crackles on exam with lower extremity edema, no dyspnea noted so he was Gently diuresed, and empirically started on IV antibiotics for CAP. Overnight went into respiratory failure with suspicious aspiration ( pooling of secretions ) that followed by asystole,coded for 11 minutes , intubated, central line placed and started on Levophed .Large amount of secretions with mucus and saliva noted during intubation . Started on hypothermia protocol initially and discontinued since patient became responsive. Echo showed very poor cardiac function with EF < 10 % Cardiology consulted and patient started on Dobutamine At present intubated and sedated . CXR shows vascular congestion. started presedex for sedation 1. Acute respiratory failure secondary to CHF exacerbation leading to respiratory arrest and cardiac arrest intubated on MV Continue IV antibiotics Weaning protocol 2. Cardiogenic Shock/ CHF exacerbation echo showed EF < 10 % with hypokinesis and parodoxal septal motion Cradiology on board on Dobutamine drip 3. Suspected aspiration Pneumonia start clindamycin Respiratory toilet with frequent suctioning Keep HOB elevated Follow up respiratory cultures 4.Anemia Most likely chronic Send amnemiawork up 5. Transaminitis most likely secondary to passive liver congestion Continue monitoring 6. Hypoglycemia resolved started feeding with 1.2 Buck 7.VTE lovenox
--- NOTE | 2017-09-19 08:17 | RAD ---
HISTORY: Reevlauate Intubated COMPARISON: Portable chest 09/18/2017. FINDINGS: Endotracheal and nasogastric tubes are stable in position. LUNGS: Bilateral infiltrates appear to be diminishing, particularly at the upper right lung zone with diminishing loculated pleural fluid at the left apex and likely underlying pleural thickening remaining. Trace left pleural effusion/fibrosis remains blunting left costophrenic sulcus with none at the right. No pneumothorax bilaterally. PLEURA: As above. CARDIOVASCULAR: Stable cardiac silhouette noted. No definite pulmonary vascular derangement. OSSEOUS STRUCTURES: No significant abnormalities. VISUALIZED UPPER ABDOMEN: Normal. OTHER FINDINGS: None. IMPRESSION: Diminishing bilateral infiltrates, particularly at the superior right lung zone as well as diminishing left apical pleural fluid.
[2017-09-19] MEDS: Enoxaparin 40 mg Syringe SC SCH (08:53)
--- NOTE | 2017-09-19 08:59 | CARD ---
APPROVED REPORT EXAM: Two-dimensional and M-mode echocardiogram with Doppler and color Doppler. Other Information Quality : ExcellentRhythm : NSR INDICATION Peripheral Edema 2D DIMENSIONS IVSd1.10 (0.7-1.1cm)LVDd4.87 (3.9-5.9cm) LVOT Diameter2.38 (1.8-2.4cm)PWd1.39 (0.7-1.1cm) IVSs0.91 (0.8-1.2cm)LVDs4.89 (2.5-4.0cm) FS (%) 0.6 %PWs1.22 (0.8-1.2cm) M-Mode DIMENSIONS Left Atrium (MM)4.03 (2.5-4.0cm)IVSd0.94 (0.7-1.1cm) Aortic Root3.12 (2.2-3.7cm)LVDd5.41 (4.0-5.6cm) Aortic Cusp Exc.2.24 (1.5-2.0cm)PWd0.88 (0.7-1.1cm) IVSs1.03 cmFS (%) 9 % LVDs4.91 (2.0-3.8cm)PWs1.06 cm Mitral Valve E/A ratio0.0 TDI E/Lateral E'0.0E/Medial E'0.0 Tricuspid Valve TR Peak [id number] Peak Gr.19mmHg [id number] LEFT VENTRICLE The Left Ventricle is mildly dilated. There is normal left ventricular wall thickness. Left ventricle systolic function is severely impaired. The Ejection Fraction is <10%. Generalised profound hypokinesia with paradoxical septal motion Could not be assesed. RIGHT VENTRICLE The right ventricle is severely dilated. There is normal right ventricular wall thickness. Systolic function is severely reduced. ATRIA The left atrium size is normal. The right atrium is moderately dilated. AORTIC VALVE The aortic valve is normal in structure. No aortic regurgitation is present. There is no aortic valvular stenosis. MITRAL VALVE The mitral valve is normal in structure. There is no evidence of mitral valve prolapse. There is no mitral valve stenosis. Mitral regurgitation is moderate. TRICUSPID VALVE The tricuspid valve is normal in structure. There is severe tricuspid regurgitation. Right ventricular systolic pressure is estimated at 30 mmHg. There is no pulmonary hypertension. PULMONIC VALVE The pulmonary valve is normal in structure. There is no pulmonic valvular regurgitation. GREAT VESSELS The aortic root is normal in size. The IVC is dilated. The IVC collapses <50% with inspiration. PERICARDIAL EFFUSION The pericardium appears normal. <Conclusion> The Left Ventricle is mildly dilated. There is normal left ventricular wall thickness. Generalised profound hypokinesia with paradoxical septal motion Left ventricle systolic function is severely impaired. The Ejection Fraction is <10%. The right ventricle is severely dilated. Systolic function is severely reduced. Mitral regurgitation is moderate. There is severe tricuspid regurgitation. The IVC is dilated. The IVC collapses <50% with inspiration. The right atrium is moderately dilated.
--- NOTE | 2017-09-19 10:04 | CT ---
PROCEDURE: CT HEAD WITHOUT CONTRAST. HISTORY: unresponsive COMPARISON: None available. TECHNIQUE: Axial computed tomography images were obtained through the head/brain without intravenous contrast. Radiation dose: Total exam DLP = 907.19 mGy-cm. This CT exam was performed using one or more of the following dose reduction techniques: Automated exposure control, adjustment of the mA and/or kV according to patient size, and/or use of iterative reconstruction technique. FINDINGS: HEMORRHAGE: No intracranial hemorrhage. BRAIN: Prior left partial mastoidectomy/temporal craniectomy is identified with prominent heterotopic calcification cephalad to the left peaches ridge. Cystic encephalomalacia seen involving the left temporal lobe and the lateral margins of the left cerebellum as well. Volume loss is appreciate rather than positive mass effect as result. Limited chronic microangiopathy is manifest by multifocal subcortical white matter lucency. Left frontal rounded lucency is indeterminate in age and could reflect an acute or subacute lacune though could also be chronic. Follow-up MRI is advised for greater characterization if there is no contraindication. . Brainstem appears unremarkable swells the right cerebellum. Note, artifact from metallic hardware or surgical cement at the left mastoid region obscures evaluation of the posterior fossa significantly, particularly the mid left cerebellar regions. VENTRICLES: Unremarkable. No hydrocephalus. CALVARIUM: Unremarkable. PARANASAL SINUSES: Prominent left sphenoid sinusitis with trace right sphenoid sinus disease. Prominent bilateral ethmoid sinusitis identified with mucosal inflammatory changes affecting the bilateral maxillary sinuses. MASTOID AIR CELLS: Postop changes seen at the left mastoid air cells the right mastoid air cell complex unremarkable. Gross hypertrophy and trabecular thickening of the left mastoid air cell complex is appreciated, potentially a function of Paget's disease or other intrinsic bony process. Clinically correlate further. Likely chronic otitis media is appreciated as well as mastoid effusions. OTHER FINDINGS: None. IMPRESSION: 1. Potential acute subacute lacune left frontal lobe. No acute or subacute lobar brain infarction grossly evident. Follow-up MRI is advised if there is no contraindication. 2. As above prior partial left mastoidectomy/limited left temporal craniectomy with cystic encephalomalacia identified left temporal lobe and left cerebellum laterally. Metallic hardware versus surgical cement is seen related to the in the mid left mastoid air cell complex with grossly thickened mastoid septal changes and overall enlargement from a likely intrinsic bony process including possibly Paget's disease or chronic infectious process though enlargement would not be expected chronic infectious process, only septal thickening. Clinical follow-up advised. 3. Age-related neuro degenerative changes are identified primarily manifest by chronic microangiopathy diffusely throughout the cerebrum.
[2017-09-19] MEDS: Propofol 10 mg/ml 1,000 MG/100 ML VIAL IV SCH (12:17)
--- NOTE | 2017-09-19 13:34 | CP.PCM.CON ---
History of Present Illness - History of Present Illness History of Present Illness: 57 y/o male intubated on vent pt has had 2 respiratory arrests the last one with asystole Pt at this point is on ventilatory support Pt is unresponsive anoxic encephalopathy Monitor NSR EKG: NSR Troponin: elevated 2* to CPR Past Patient History - Tetanus Immunizations Tetanus Immunization: Unknown - Past Medical History & Family History Past Medical History?: Yes - Past Social History Smoking Status: Light Smoker < 10 Cigarettes Daily - CARDIAC Hx Cardiac Disorders: Yes Hx Hypertension: Yes - PULMONARY Hx Respiratory Disorders: No Hx Tuberculosis: No - NEUROLOGICAL Hx Neurological Disorder: No - HEENT Hx HEENT Problems: No - RENAL Hx Chronic Kidney Disease: No - ENDOCRINE/METABOLIC Hx Endocrine Disorders: No - HEMATOLOGICAL/ONCOLOGICAL Hx Blood Disorders: No Hx Human Immunodeficiency Virus (HIV): No - INTEGUMENTARY Hx Dermatological Problems: No - MUSCULOSKELETAL/RHEUMATOLOGICAL Hx Musculoskeletal Disorders: No Hx Falls: No - GASTROINTESTINAL Hx Gastrointestinal Disorders: No - GENITOURINARY/GYNECOLOGICAL Hx Genitourinary Disorders: No Hx Sexually Transmitted Disorders: No - PSYCHIATRIC Hx Psychophysiologic Disorder: Yes Hx Schizophrenia: Yes Hx Substance Use: No (DENIES) - SURGICAL HISTORY Hx Surgeries: No - ANESTHESIA Hx Anesthesia: No Hx Anesthesia Reactions: No Hx Malignant Hyperthermia: No Meds Allergies/Adverse Reactions: Allergies Allergy/AdvReac Type Severity Reaction Status Date / Time Penicillins Allergy RASH Verified 09/15/17 20:25 - Medications Medications: Current Medications Acetaminophen (Tylenol 650mg/20.3ml Solution Ud) 975 mg NG Q6 PRN PRN Reason: Rigors Albuterol/Ipratropium (Duoneb 3 Mg/0.5 Mg (3 Ml) Ud) 3 ml INH RQ4 TIMUR Last Admin: 09/19/17 11:30 Dose: 3 ml Artificial Tears (Lacri-Lube) 1 applic OU HS TIMUR Last Admin: 09/18/17 22:05 Dose: 1 applic Dextrose (Dextrose 50% Inj) 0 ml IV STAT PRN; Protocol PRN Reason: Hypoglycemia Protocol Enoxaparin Sodium (Lovenox) 40 mg SC DAILY TIMUR PRN Reason: Protocol Last Admin: 09/19/17 08:53 Dose: 40 mg Metronidazole (Flagyl 500mg/100ml Ns) 100 mls @ 100 mls/hr IVPB Q8 TIMUR PRN Reason: Protocol Last Admin: 09/19/17 08:53 Dose: 100 mls/hr Propofol (Diprivan) 1,000 mg in 100 mls @ 2.196 mls/hr IV .Q24H TIMUR; 5 MCG/KG/ MIN PRN Reason: Protocol Stop: 09/19/17 15:39 Last Admin: 09/19/17 12:17 Dose: 15 mcg/kg/min, 6.589 mls/hr Dobutamine HCl/Dextrose (Dobutamine/Dextrose 5% 500mg/250ml) 500 mg in 250 mls @ 10.982 mls/hr IV .[id number] TIMUR PRN Reason: 5 MCG/KG/MIN Last Admin: 09/18/17 22:00 Dose: 10.982 mls/hr Ceftriaxone Sodium 1 gm/ (Sodium Chloride) 100 mls @ 0 mls/hr IVPB DAILY TIMUR PRN Reason: Protocol Pantoprazole Sodium (Protonix Inj) 40 mg IVP DAILY TIMUR Last Admin: 09/19/17 08:53 Dose: 40 mg Results - Vital Signs Recent Vital Signs: Last Vital Signs Temp 98.3 F 09/19/17 12:00 Pulse 86 09/19/17 12:00 Resp 20 09/19/17 12:00 BP 108/64 09/19/17 12:00 Pulse Ox 98 09/19/17 12:00 - Labs Result Diagrams: 09/19/17 04:20 09/19/17 04:20 Labs: Laboratory Results - last 24 hr 09/18/17 09/18/17 09/18/17 11:06 16:32 18:34 WBC RBC Hgb Hct MCV MCH MCHC RDW Plt Count pCO2 pO2 HCO3 ABG pH ABG Total CO2 ABG O2 Saturation ABG Base Excess Cecilio Test ABG Potassium VBG pH VBG pCO2 VBG HCO3 VBG Total CO2 VBG O2 Sat (Calc) VBG Base Excess VBG Potassium A-a O2 Difference Sodium Chloride Glucose Lactate Vent Mode Mechanical Rate FiO2 Tidal Volume PEEP Potassium Carbon Dioxide Anion Gap BUN Creatinine Est GFR ( Amer) Est GFR (Non-Af Amer) POC Glucose (mg/dL) 89 Random Glucose Calcium Phosphorus Magnesium Total Bilirubin GGT 128 H AST ALT Alkaline Phosphatase Troponin I 0.5720 H* Total Protein Albumin Globulin Albumin/Globulin Ratio Arterial Blood Potassium Venous Blood Potassium 09/18/17 09/18/1718 19:54 21:33 04:00 WBC RBC Hgb Hct MCV MCH MCHC RDW Plt Count pCO2 43 pO2 28 L 128 H HCO3 29.1 H ABG pH 7.45 ABG Total CO2 31.2 H ABG O2 Saturation 99.2 H ABG Base Excess 5.3 H Cecilio Test Yes ABG Potassium 4.1 VBG pH 7.37 VBG pCO2 49 VBG HCO3 25.4 VBG Total CO2 29.8 H VBG O2 Sat (Calc) 53.5 VBG Base Excess 2.2 H VBG Potassium 4.4 A-a O2 Difference 103.0 Sodium 128.0 L 132.0 Chloride 98.0 101.0 Glucose 109 107 Lactate 2.7 H 1.7 Vent Mode A/c Mechanical Rate 20 FiO2 40.0 40.0 Tidal Volume 500 PEEP 5 5 Potassium Carbon Dioxide Anion Gap BUN Creatinine Est GFR ( Amer) Est GFR (Non-Af Amer) POC Glucose (mg/dL) 86 Random Glucose Calcium Phosphorus Magnesium Total Bilirubin GGT AST ALT Alkaline Phosphatase Troponin I Total Protein Albumin Globulin Albumin/Globulin Ratio Arterial Blood Potassium 4.1 Venous Blood Potassium 4.4 09/19/17 09/19/17 09/19/17 04:20 04:20 04:45 WBC 10.8 RBC 4.35 L Hgb 9.4 L Hct 31.6 L MCV 72.6 L D MCH 21.5 L MCHC 29.7 L RDW 18.4 H Plt Count 246 pCO2 pO2 HCO3 ABG pH ABG Total CO2 ABG O2 Saturation ABG Base Excess Cecilio Test ABG Potassium VBG pH VBG pCO2 VBG HCO3 VBG Total CO2 VBG O2 Sat (Calc) VBG Base Excess VBG Potassium A-a O2 Difference Sodium 137 Chloride 99 Glucose Lactate Vent Mode Mechanical Rate FiO2 Tidal Volume PEEP Potassium 4.3 Carbon Dioxide 28 Anion Gap 14 BUN 37 H Creatinine 1.1 Est GFR ( Amer) > 60 Est GFR (Non-Af Amer) > 60 POC Glucose (mg/dL) 95 Random Glucose 104 Calcium 7.6 L Phosphorus 3.5 Magnesium 1.2 L Total Bilirubin 0.4 GGT AST 152 H D ALT 82 H D Alkaline Phosphatase 163 H D Troponin I Total Protein 6.3 Albumin 2.5 L Globulin 3.8 Albumin/Globulin Ratio 0.7 L Arterial Blood Potassium Venous Blood Potassium 09/19/17 11:15 WBC RBC Hgb Hct MCV MCH MCHC RDW Plt Count pCO2 pO2 HCO3 ABG pH ABG Total CO2 ABG O2 Saturation ABG Base Excess Cecilio Test ABG Potassium VBG pH VBG pCO2 VBG HCO3 VBG Total CO2 VBG O2 Sat (Calc) VBG Base Excess VBG Potassium A-a O2 Difference Sodium Chloride Glucose Lactate Vent Mode Mechanical Rate FiO2 Tidal Volume PEEP Potassium Carbon Dioxide Anion Gap BUN Creatinine Est GFR ( Amer) Est GFR (Non-Af Amer) POC Glucose (mg/dL) 91 Random Glucose Calcium Phosphorus Magnesium Total Bilirubin GGT AST ALT Alkaline Phosphatase Troponin I Total Protein Albumin Globulin Albumin/Globulin Ratio Arterial Blood Potassium Venous Blood Potassium Assessment & Plan (1) Respiratory arrest before cardiac arrest Assessment and Plan: Continue supportive care Status: Acute (2) CHF (congestive heart failure) Status: Acute
--- NOTE | 2017-09-19 15:03 | CP.CCUPN ---
CCU Subjective - Physician Review Events Since Last Encounter (Free Text): 09/19/17 15:01 sedated on vent. CCU Objective - Vital Signs / Intake & Output Vital Signs (Last 4 hours): Vital Signs Temp Pulse Resp BP Pulse Ox 09/19/17 14:00 87 21 106/66 100 09/19/17 13:00 91 H 23 114/64 100 09/19/17 12:00 98.3 F 86 20 108/64 98 Intake and Output (Last 8hrs): Intake & Output 09/19/17 09/19/17 09/19/17 06:59 14:59 22:59 Intake Total 651 464 Output Total 200 Balance 451 464 Intake: IV 111 114 Intake, Piggyback 100 200 Tube Feeding 290 Free Water Flush 150 150 Output: Urine 200 Urethral (Mcgowan) 200 - Physical Exam Physical Exam Limitations: Positive for: Altered Mental Status Head: Positive for: Atraumatic, Normocephalic Pupils: Positive for: Sluggish Conjunctiva: Positive for: Normal Mouth: Positive for: Moist Mucous Membranes Respiratory/Chest: Positive for: Clear to Auscultation Cardiovascular: Positive for: Regular Rate and Rhythm Abdomen: Positive for: Normal Bowel Sounds. Negative for: Tenderness, Distention Neurological: Positive for: Other (sedated) - Medications Active Medications: Active Medications Generic Name Dose Route Start Last Admin Trade Name Freq PRN Reason Stop Dose Admin Acetaminophen 975 mg 09/18/17 02:30 Tylenol 650mg/20.3ml Solution Ud NG Q6 PRN Rigors Albuterol/Ipratropium 3 ml 09/18/17 12:00 09/19/17 11:30 Duoneb 3 Mg/0.5 Mg (3 Ml) Ud INH 3 ml RQ4 TIMUR Administration Artificial Tears 1 applic 09/18/17 22:00 09/18/17 22:05 Lacri-Lube OU 1 applic HS TIMUR Administration Dextrose 0 ml 09/18/17 05:13 Dextrose 50% Inj IV STAT PRN Hypoglycemia Protocol Protocol Enoxaparin Sodium 40 mg 09/16/17 09:00 09/19/17 08:53 Lovenox SC 40 mg DAILY TIMUR Administration Protocol Propofol 1,000 mg in 100 mls @ 2.196 mls/hr 09/18/17 15:45 09/19/17 14:13 Diprivan IV 09/19/17 15:39 20 mcg/kg/min .Q24H TIMUR 8.785 mls/hr Protocol Titration 5 MCG/KG/MIN Dobutamine HCl/Dextrose 500 mg in 250 mls @ 10.982 mls/hr 09/18/17 21:15 02/27 22:00 Dobutamine/Dextrose 5% 500mg/250ml IV 10.982 mls/hr .[id number] TIMUR Administration 5 MCG/KG/MIN Ceftriaxone Sodium 1 gm/ 100 mls @ 0 mls/hr 09/20/17 09:00 Sodium Chloride IVPB DAILY TIMUR Protocol Pantoprazole Sodium 40 mg 09/18/17 09:00 09/19/17 08:53 Protonix Inj IVP 40 mg DAILY TIMUR Administration - Patient Studies Lab Studies: Microbiology Studies 09/18/17 16:00 Gram Stain - Final Trachasp 09/16/17 10:30 MRSA Culture (Admit) - Final Naris Lab Studies 09/19/17 09/19/17 09/19/17 Range/Units 11:15 04:45 04:20 WBC (4.8-10.8) K/uL RBC (4.40-5.90) Mil/uL Hgb (12.0-18.0) g/dL Hct (35.0-51.0) % MCV (80.0-94.0) fl MCH (27.0-31.0) pg MCHC (33.0-37.0) g/dL RDW (11.5-14.5) % Plt Count (130-400) K/uL pCO2 (35-45) mm/Hg pO2 (30-55) mm/Hg HCO3 (21-28) mmol/L ABG pH (7.35-7.45) ABG Total CO2 (22-28) mmol/L ABG O2 Saturation (95-98) % ABG Base Excess (-2.0-3.0) mmol/L Cecilio Test ABG Potassium (3.6-5.2) mmol/L VBG pH (7.32-7.43) VBG pCO2 (40-60) mmHg VBG HCO3 mmol/L VBG Total CO2 (22-28) mmol/L VBG O2 Sat (Calc) (40-65) % VBG Base Excess (0.0-2.0) mmol/L VBG Potassium (3.6-5.2) mmol/L A-a O2 Difference mm/Hg Sodium 137 (132-148) mmol/L Chloride 99 (98-107) mmol/L Glucose (75-110) mg/dL Lactate (0.7-2.1) mmol/L Vent Mode Mechanical Rate FiO2 % Tidal Volume PEEP Potassium 4.3 (3.6-5.0) MMOL/L Carbon Dioxide 28 (22-30) mmol/L Anion Gap 14 (10-20) BUN 37 H (9-20) mg/dl Creatinine 1.1 (0.8-1.5) mg/dl Est GFR ( Amer) > 60 Est GFR (Non-Af Amer) > 60 POC Glucose (mg/dL) 91 95 (65-110) mg/dL Random Glucose 104 (75-110) mg/dL Calcium 7.6 L (8.4-10.2) mg/dL Phosphorus 3.5 (2.5-4.5) mg/dl Magnesium 1.2 L (1.6-2.3) MG/DL Total Bilirubin 0.4 (0.2-1.3) mg/dl GGT (8-78) U/L AST 152 H D (17-59) U/L ALT 82 H D (21-72) U/L Alkaline Phosphatase 163 H D (38-126) U/L Troponin I (0.00-0.120) ng/mL Total Protein 6.3 (6.3-8.2) G/DL Albumin 2.5 L (3.5-5.0) g/dL Globulin 3.8 (2.2-3.9) gm/dL Albumin/Globulin Ratio 0.7 L (1.0-2.1) Arterial Blood Potassium (3.6-5.2) mmol/L Venous Blood Potassium (3.6-5.2) mmol/L 09/19/17 09/19/17 09/18/17 Range/Units 04:20 04:00 21:33 WBC 10.8 (4.8-10.8) K/uL RBC 4.35 L (4.40-5.90) Mil/uL Hgb 9.4 L (12.0-18.0) g/dL Hct 31.6 L (35.0-51.0) % MCV 72.6 L D (80.0-94.0) fl MCH 21.5 L (27.0-31.0) pg MCHC 29.7 L (33.0-37.0) g/dL RDW 18.4 H (11.5-14.5) % Plt Count 246 (130-400) K/uL pCO2 43 (35-45) mm/Hg pO2 128 H (30-55) mm/Hg HCO3 29.1 H (21-28) mmol/L ABG pH 7.45 (7.35-7.45) ABG Total CO2 31.2 H (22-28) mmol/L ABG O2 Saturation 99.2 H (95-98) % ABG Base Excess 5.3 H (-2.0-3.0) mmol/L Cecilio Test Yes ABG Potassium 4.1 (3.6-5.2) mmol/L VBG pH (7.32-7.43) VBG pCO2 (40-60) mmHg VBG HCO3 mmol/L VBG Total CO2 (22-28) mmol/L VBG O2 Sat (Calc) (40-65) % VBG Base Excess (0.0-2.0) mmol/L VBG Potassium (3.6-5.2) mmol/L A-a O2 Difference 103.0 mm/Hg Sodium 132.0 (132-148) mmol/L Chloride 101.0 (98-107) mmol/L Glucose 107 (75-110) mg/dL Lactate 1.7 (0.7-2.1) mmol/L Vent Mode A/c Mechanical Rate 20 FiO2 40.0 % Tidal Volume 500 PEEP 5 Potassium (3.6-5.0) MMOL/L Carbon Dioxide (22-30) mmol/L Anion Gap (10-20) BUN (9-20) mg/dl Creatinine (0.8-1.5) mg/dl Est GFR ( Amer) Est GFR (Non-Af Amer) POC Glucose (mg/dL) 86 (65-110) mg/dL Random Glucose (75-110) mg/dL Calcium (8.4-10.2) mg/dL Phosphorus (2.5-4.5) mg/dl Magnesium (1.6-2.3) MG/DL Total Bilirubin (0.2-1.3) mg/dl GGT (8-78) U/L AST (17-59) U/L ALT (21-72) U/L Alkaline Phosphatase (38-126) U/L Troponin I (0.00-0.120) ng/mL Total Protein (6.3-8.2) G/DL Albumin (3.5-5.0) g/dL Globulin (2.2-3.9) gm/dL Albumin/Globulin Ratio (1.0-2.1) Arterial Blood Potassium 4.1 (3.6-5.2) mmol/L Venous Blood Potassium (3.6-5.2) mmol/L 09/18/17 09/18/17 09/18/17 Range/Units 19:54 18:34 16:32 WBC (4.8-10.8) K/uL RBC (4.40-5.90) Mil/uL Hgb (12.0-18.0) g/dL Hct (35.0-51.0) % MCV (80.0-94.0) fl MCH (27.0-31.0) pg MCHC (33.0-37.0) g/dL RDW (11.5-14.5) % Plt Count (130-400) K/uL pCO2 (35-45) mm/Hg pO2 28 L (30-55) mm/Hg HCO3 (21-28) mmol/L ABG pH (7.35-7.45) ABG Total CO2 (22-28) mmol/L ABG O2 Saturation (95-98) % ABG Base Excess (-2.0-3.0) mmol/L Cecilio Test ABG Potassium (3.6-5.2) mmol/L VBG pH 7.37 (7.32-7.43) VBG pCO2 49 (40-60) mmHg VBG HCO3 25.4 mmol/L VBG Total CO2 29.8 H (22-28) mmol/L VBG O2 Sat (Calc) 53.5 (40-65) % VBG Base Excess 2.2 H (0.0-2.0) mmol/L VBG Potassium 4.4 (3.6-5.2) mmol/L A-a O2 Difference mm/Hg Sodium 128.0 L (132-148) mmol/L Chloride 98.0 (98-107) mmol/L Glucose 109 (75-110) mg/dL Lactate 2.7 H (0.7-2.1) mmol/L Vent Mode Mechanical Rate FiO2 40.0 % Tidal Volume PEEP 5 Potassium (3.6-5.0) MMOL/L Carbon Dioxide (22-30) mmol/L Anion Gap (10-20) BUN (9-20) mg/dl Creatinine (0.8-1.5) mg/dl Est GFR ( Amer) Est GFR (Non-Af Amer) POC Glucose (mg/dL) 89 (65-110) mg/dL Random Glucose (75-110) mg/dL Calcium (8.4-10.2) mg/dL Phosphorus (2.5-4.5) mg/dl Magnesium (1.6-2.3) MG/DL Total Bilirubin (0.2-1.3) mg/dl GGT (8-78) U/L AST (17-59) U/L ALT (21-72) U/L Alkaline Phosphatase (38-126) U/L Troponin I 0.5720 H* (0.00-0.120) ng/mL Total Protein (6.3-8.2) G/DL Albumin (3.5-5.0) g/dL Globulin (2.2-3.9) gm/dL Albumin/Globulin Ratio (1.0-2.1) Arterial Blood Potassium (3.6-5.2) mmol/L Venous Blood Potassium 4.4 (3.6-5.2) mmol/L 09/18/17 Range/Units 11:06 WBC (4.8-10.8) K/uL RBC (4.40-5.90) Mil/uL Hgb (12.0-18.0) g/dL Hct (35.0-51.0) % MCV (80.0-94.0) fl MCH (27.0-31.0) pg MCHC (33.0-37.0) g/dL RDW (11.5-14.5) % Plt Count (130-400) K/uL pCO2 (35-45) mm/Hg pO2 (30-55) mm/Hg HCO3 (21-28) mmol/L ABG pH (7.35-7.45) ABG Total CO2 (22-28) mmol/L ABG O2 Saturation (95-98) % ABG Base Excess (-2.0-3.0) mmol/L Cecilio Test ABG Potassium (3.6-5.2) mmol/L VBG pH (7.32-7.43) VBG pCO2 (40-60) mmHg VBG HCO3 mmol/L VBG Total CO2 (22-28) mmol/L VBG O2 Sat (Calc) (40-65) % VBG Base Excess (0.0-2.0) mmol/L VBG Potassium (3.6-5.2) mmol/L A-a O2 Difference mm/Hg Sodium (132-148) mmol/L Chloride (98-107) mmol/L Glucose (75-110) mg/dL Lactate (0.7-2.1) mmol/L Vent Mode Mechanical Rate FiO2 % Tidal Volume PEEP Potassium (3.6-5.0) MMOL/L Carbon Dioxide (22-30) mmol/L Anion Gap (10-20) BUN (9-20) mg/dl Creatinine (0.8-1.5) mg/dl Est GFR ( Amer) Est GFR (Non-Af Amer) POC Glucose (mg/dL) (65-110) mg/dL Random Glucose (75-110) mg/dL Calcium (8.4-10.2) mg/dL Phosphorus (2.5-4.5) mg/dl Magnesium (1.6-2.3) MG/DL Total Bilirubin (0.2-1.3) mg/dl GGT 128 H (8-78) U/L AST (17-59) U/L ALT (21-72) U/L Alkaline Phosphatase (38-126) U/L Troponin I (0.00-0.120) ng/mL Total Protein (6.3-8.2) G/DL Albumin (3.5-5.0) g/dL Globulin (2.2-3.9) gm/dL Albumin/Globulin Ratio (1.0-2.1) Arterial Blood Potassium (3.6-5.2) mmol/L Venous Blood Potassium (3.6-5.2) mmol/L Laboratory Results - last 24 hr 09/18/17 09/18/17 09/18/17 11:06 16:32 18:34 WBC RBC Hgb Hct MCV MCH MCHC RDW Plt Count pCO2 pO2 HCO3 ABG pH ABG Total CO2 ABG O2 Saturation ABG Base Excess Cecilio Test ABG Potassium VBG pH VBG pCO2 VBG HCO3 VBG Total CO2 VBG O2 Sat (Calc) VBG Base Excess VBG Potassium A-a O2 Difference Sodium Chloride Glucose Lactate Vent Mode Mechanical Rate FiO2 Tidal Volume PEEP Potassium Carbon Dioxide Anion Gap BUN Creatinine Est GFR ( Amer) Est GFR (Non-Af Amer) POC Glucose (mg/dL) 89 Random Glucose Calcium Phosphorus Magnesium Total Bilirubin GGT 128 H AST ALT Alkaline Phosphatase Troponin I 0.5720 H* Total Protein Albumin Globulin Albumin/Globulin Ratio Arterial Blood Potassium Venous Blood Potassium 09/18/17 09/18/17 09/19/17 19:54 21:33 04:00 WBC RBC Hgb Hct MCV MCH MCHC RDW Plt Count pCO2 43 pO2 28 L 128 H HCO3 29.1 H ABG pH 7.45 ABG Total CO2 31.2 H ABG O2 Saturation 99.2 H ABG Base Excess 5.3 H Cecilio Test Yes ABG Potassium 4.1 VBG pH 7.37 VBG pCO2 49 VBG HCO3 25.4 VBG Total CO2 29.8 H VBG O2 Sat (Calc) 53.5 VBG Base Excess 2.2 H VBG Potassium 4.4 A-a O2 Difference 103.0 Sodium 128.0 L 132.0 Chloride 98.0 101.0 Glucose 109 107 Lactate 2.7 H 1.7 Vent Mode A/c Mechanical Rate 20 FiO2 40.0 40.0 Tidal Volume 500 PEEP 5 5 Potassium Carbon Dioxide Anion Gap BUN Creatinine Est GFR ( Amer) Est GFR (Non-Af Amer) POC Glucose (mg/dL) 86 Random Glucose Calcium Phosphorus Magnesium Total Bilirubin GGT AST ALT Alkaline Phosphatase Troponin I Total Protein Albumin Globulin Albumin/Globulin Ratio Arterial Blood Potassium 4.1 Venous Blood Potassium 4.4 09/19/17 09/19/17 09/19/17 04:20 04:20 04:45 WBC 10.8 RBC 4.35 L Hgb 9.4 L Hct 31.6 L MCV 72.6 L D MCH 21.5 L MCHC 29.7 L RDW 18.4 H Plt Count 246 pCO2 pO2 HCO3 ABG pH ABG Total CO2 ABG O2 Saturation ABG Base Excess Cecilio Test ABG Potassium VBG pH VBG pCO2 VBG HCO3 VBG Total CO2 VBG O2 Sat (Calc) VBG Base Excess VBG Potassium A-a O2 Difference Sodium 137 Chloride 99 Glucose Lactate Vent Mode Mechanical Rate FiO2 Tidal Volume PEEP Potassium 4.3 Carbon Dioxide 28 Anion Gap 14 BUN 37 H Creatinine 1.1 Est GFR ( Amer) > 60 Est GFR (Non-Af Amer) > 60 POC Glucose (mg/dL) 95 Random Glucose 104 Calcium 7.6 L Phosphorus 3.5 Magnesium 1.2 L Total Bilirubin 0.4 GGT AST 152 H D ALT 82 H D Alkaline Phosphatase 163 H D Troponin I Total Protein 6.3 Albumin 2.5 L Globulin 3.8 Albumin/Globulin Ratio 0.7 L Arterial Blood Potassium Venous Blood Potassium 09/19/17 11:15 WBC RBC Hgb Hct MCV MCH MCHC RDW Plt Count pCO2 pO2 HCO3 ABG pH ABG Total CO2 ABG O2 Saturation ABG Base Excess Cecilio Test ABG Potassium VBG pH VBG pCO2 VBG HCO3 VBG Total CO2 VBG O2 Sat (Calc) VBG Base Excess VBG Potassium A-a O2 Difference Sodium Chloride Glucose Lactate Vent Mode Mechanical Rate FiO2 Tidal Volume PEEP Potassium Carbon Dioxide Anion Gap BUN Creatinine Est GFR ( Amer) Est GFR (Non-Af Amer) POC Glucose (mg/dL) 91 Random Glucose Calcium Phosphorus Magnesium Total Bilirubin GGT AST ALT Alkaline Phosphatase Troponin I Total Protein Albumin Globulin Albumin/Globulin Ratio Arterial Blood Potassium Venous Blood Potassium Fingerstick Blood Sugar Results: 91 Review of Systems - Review of Systems Systems not reviewed;Unavailable: Intubated Assessment/Plan (1) Cardiogenic shock Assessment and plan: 57yo M. No known PMHx, patient had recent cardiac arrest, was successfully resuscitated. Now in cardiogenic shock on pressors. Neuro: sedated with propofol. Pulm: acute respiratory failure on vent. CV: cardiogenic shock on dobutamine. Hem: anemia of critical illness Renal: no acute issues, urine output wnl Endo: no acute issues GI: NPO, Jevity@20, goal TBD ID: no acute issues. DVT proph - lovenox GI proph - protonix mcgowan for strict I/O's during acute illness Code status - full code Critical Care Time spent 35 minutes Multi-disciplinary rounds were performed with house staff, nursing, speech therapy, respiratory therapy, pharmacy and nutrition with integrated input from the primary team/attending and other consulting services. The documented time is cumulative and includes review of patient data/exams/labs/chart review and examination of the patient on rounds and throughout the day; time is exclusive of any procedures or teaching time. Current Visit: Yes Status: Acute
[2017-09-19] MEDS ORDERED: Dexmedetomidine Hydrochloride 400 MCG in Sodium Chloride 0.9% 96 ML IV ONE ×2 (16:01→19:15)
[2017-09-19] MEDS: Mineral Oil/White Petrolatum Ophth Oint OU SCH (21:29)
[2017-09-20] MEDS: Albuterol-Ipratrop 3 mg / 0.5 (3 ml) UD INH SCH ×7 (00:09→23:41)
[2017-09-20 05:34] LABS: ABG ALLEN TEST YES; ARTERIAL BLOOD GAS HCO3 29.6 mmol/L (21-28); ARTERIAL BLOOD GAS HEMOGLOBIN 9.3 g/dL (11.7-17.4); ARTERIAL BLOOD GAS O2 CONTENT 12.8 ML/dL (15-23); ARTERIAL BLOOD GAS O2 SAT 98.6 % (95-98); ARTERIAL BLOOD GAS PCO2 44 mm/Hg (35-45); ARTERIAL BLOOD GAS PH 7.45 (7.35-7.45); ARTERIAL BLOOD GAS PO2 87 mm/Hg (80-100)
[2017-09-20 06:18] LABS: BLOOD UREA NITROGEN 30 mg/dl (9-20); CALCIUM 7.7 mg/dL (8.4-10.2); GFR AFRICAN-AMERICAN > 60; GFR NON-AFRICAN AMERICAN > 60
[2017-09-20 06:19] LABS: HEMOGLOBIN 9.2 g/dL (12.0-18.0); MEAN CELL VOLUME 73.6 fl (80.0-94.0); MEAN CORPUSCULAR HEMOGLOBIN 21.7 pg (27.0-31.0); MEAN CORPUSCULAR HGB CONC 29.4 g/dL (33.0-37.0); RBC 4.24 Mil/uL (4.40-5.90); RED CELL DISTRIBUTION WIDTH 19.1 % (11.5-14.5); WHITE BLOOD COUNT 8.4 K/uL (4.8-10.8)
--- NOTE | 2017-09-20 07:29 | CP.PCM.PN ---
Subjective - Date & Time of Evaluation Date of Evaluation: 09/20/17 Time of Evaluation: 09:00 - Subjective Subjective: Patient seen and examined bedside. Still intubated on MV PRVC AC mode 12/450/5/ 40 % with ABG 44/87/29/7.45 Off sedation , awake, alert , following commands Not tolerating weaning trials CXR showed bilateral vascular congestion . Ct chest showed minimal improvement of bilateral vascular infiltrates Tapered off dobutamine drip This AM and remained persistently hypotensive so Milrinone started as per cardiology recommendations Echo showed very poor EF function BP 97/71 HR 65 afebrile WBC 8.6 hgb 9.2 Plt 244 Objective - Vital Signs/Intake and Output Vital Signs (last 24 hours): Temp Pulse Resp BP Pulse Ox 98 F 65 14 95/71 L 100 09/20/17 04:00 09/20/17 06:58 09/20/17 06:58 09/20/17 06:58 09/20/17 06:58 Intake and Output: 09/20/17 09/20/17 06:59 18:59 Intake Total 766 Output Total 400 Balance 366 - Medications Medications: Current Medications Acetaminophen (Tylenol 650mg/20.3ml Solution Ud) 975 mg NG Q6 PRN PRN Reason: Rigors Albuterol/Ipratropium (Duoneb 3 Mg/0.5 Mg (3 Ml) Ud) 3 ml INH RQ4 TIMUR Last Admin: 09/20/17 07:09 Dose: 3 ml Artificial Tears (Lacri-Lube) 1 applic OU HS [facility] Last Admin: 09/19/17 21:29 Dose: 1 applic Dextrose (Dextrose 50% Inj) 0 ml IV STAT PRN; Protocol PRN Reason: Hypoglycemia Protocol Enoxaparin Sodium (Lovenox) 40 mg SC DAILY TIMUR PRN Reason: Protocol Last Admin: 09/19/17 08:53 Dose: 40 mg Dexmedetomidine HCl 400 mcg/ (Sodium Chloride) 100 mls @ 3.78 mls/hr IV .Q24H ONE; 0.2 MCG/KG/HR PRN Reason: Protocol Stop: 09/20/17 19:14 Clindamycin Phosphate 600 mg/ (Dextrose) 54 mls @ 54 mls/hr IVPB Q8 TIMUR PRN Reason: Protocol Last Admin: 09/20/17 01:15 Dose: 54 mls/hr Pantoprazole Sodium (Protonix Inj) 40 mg IVP DAILY TIMUR Last Admin: 09/19/17 08:53 Dose: 40 mg - Labs Labs: 09/20/17 04:00 09/20/17 04:00 PT 17.4 Seconds (9.8-13.1) H 09/18/17 02:25 INR 1.6 (0.9-1.2) H 09/18/17 02:25 - Constitutional Appears: Chronically Ill - Head Exam Head Exam: ATRAUMATIC, NORMAL INSPECTION - Eye Exam Eye Exam: EOMI, Normal appearance, PERRL Pupil Exam: NORMAL ACCOMODATION - ENT Exam ENT Exam: Mucous Membranes Dry, Normal Exam - Neck Exam Neck Exam: Full ROM, Normal Inspection - Respiratory Exam Additional comments: Coarse breath sounds bilaterally - Cardiovascular Exam Cardiovascular Exam: REGULAR RHYTHM, +S1, +S2. absent: JVD - GI/Abdominal Exam GI & Abdominal Exam: Soft, Normal Bowel Sounds. absent: Guarding, Tenderness, Rebound - Rectal Exam Rectal Exam: Deferred - Extremities Exam Extremities Exam: absent: Pedal Edema Additional comments: bilateral big toes dry callouses - Neurological Exam Neurological Exam: Alert, Awake, CN II-XII Intact Additional comments: follows commands - Psychiatric Exam Psychiatric exam: Normal Affect - Skin Skin Exam: Dry, Warm Assessment and Plan - Assessment and Plan (Free Text) Assessment: 57 year old male with unknown past medical history was seen in the emergency department 09/15 for testicular pain, and was discharged. He was then brought by police for medical and psychiatric clearance for incarceration but patient refused to leave the hospital.Patient was sedated with haldol and Ativan because he was very agitated and aggressive towards staff . He was noted to have lower extremity edema,+Cough, no sputum, Afebrile, no WBC, however BNP 8K and CXR showed vascular congestion and questionable RLL infiltrates. Mild crackles on exam noted , no dyspnea.He was Gently diuresed, and empirically started on IV antibiotics for CAP. Overnight went into respiratory failure with suspicious aspiration ( pooling of secretions ) that followed by asystole,coded for 11 minutes , intubated, central line placed and started on Levophed .Large amount of secretions with mucus and saliva noted during intubation . Started on hypothermia protocol initially and discontinued since patient became responsive. Echo showed very poor cardiac function with EF < 10 % Cardiology consulted and patient started on Dobutamine drip Ct chest and CXR shpowed bilateral vascular congestion suspicious for ARDS At present intubated off sedation , responsive , following commands BP on the lower side Started on Milrinone drip 1. Acute respiratory failure secondary to CHF exacerbation leading to respiratory arrest and cardiac arrest intubated on MV PRVC AV mode. failing weaning trials Continue vent management, diuretics IV antibiotics for possible aspiration pneumonia 2. Cardiogenic Shock/ CHF exacerbation echo showed EF < 10 % with hypokinesis and parodoxal septal motion Cardiology consulted and case discussed with Dr. Cook Started Milrinone drip Plan for right and left side cardiac cath BNp trending down from [id number] -- [id number] 3. Suspected aspiration Pneumonia started clindamycin Respiratory toilet with frequent suctioning Keep HOB elevated Follow up respiratory cultures 4.Anemia Most likely chronic Hgb 9.2 5. Transaminitis most likely secondary to passive liver congestion Continue monitoring 6. Hypoglycemia resolved started feeding with 1.2 Buck NPo past midnight for possible cath 7.VTE lovenox
[2017-09-20] MEDS: Enoxaparin 40 mg Syringe SC SCH (08:24)
--- NOTE | 2017-09-20 10:43 | CP.CCUPN ---
CCU Subjective - Physician Review Events Since Last Encounter (Free Text): 09/20/17 10:44 alert and following commands. CCU Objective - Vital Signs / Intake & Output Vital Signs (Last 4 hours): Vital Signs Temp Pulse Resp BP Pulse Ox 09/20/17 10:21 92/65 L 09/20/17 08:00 97.4 F L 71 22 96/66 L 100 09/20/17 06:58 65 14 95/71 L 100 Intake and Output (Last 8hrs): Intake & Output 09/19/17 09/20/17 09/20/17 22:59 06:59 14:59 Intake Total 1193 328 7 Output Total 700 400 Balance 493 -72 7 Weight 167 lb Intake: IV 183 68 7 Intake, Piggyback 50 50 Tube Feeding 660 110 Free Water Flush 300 100 Output: Urine 700 400 Urethral (Mcgowan) 700 400 - Physical Exam Head: Positive for: Atraumatic, Normocephalic Pupils: Positive for: Sluggish Conjunctiva: Positive for: Normal Mouth: Positive for: Moist Mucous Membranes Respiratory/Chest: Positive for: Clear to Auscultation Cardiovascular: Positive for: Regular Rate and Rhythm Abdomen: Positive for: Normal Bowel Sounds. Negative for: Tenderness, Distention Neurological: Positive for: Other (sedated) - Medications Active Medications: Active Medications Generic Name Dose Route Start Last Admin Trade Name Freq PRN Reason Stop Dose Admin Acetaminophen 975 mg 09/18/17 02:30 Tylenol 650mg/20.3ml Solution Ud NG Q6 PRN Rigors Albuterol/Ipratropium 3 ml 09/18/17 12:00 09/20/17 07:09 Duoneb 3 Mg/0.5 Mg (3 Ml) Ud INH 3 ml RQ4 TIMUR Administration Artificial Tears 1 applic 09/18/17 22:00 09/19/17 21:29 Lacri-Lube OU 1 applic HS TIMUR Administration Dextrose 0 ml 09/18/17 05:13 Dextrose 50% Inj IV STAT PRN Hypoglycemia Protocol Protocol Enoxaparin Sodium 40 mg 09/16/17 09:00 09/20/17 08:24 Lovenox SC 40 mg DAILY TIMUR Administration Protocol Furosemide 40 mg 09/20/17 10:00 09/20/17 10:21 Lasix IV 40 mg Q12H TIMUR Administration Dexmedetomidine HCl 400 mcg/ 100 mls @ 3.78 mls/hr 09/19/17 19:15 09/20/17 08 :25 Sodium Chloride IV 09/20/17 19:14 0.2 mcg/kg/hr .Q24H ONE 3.78 mls/hr Protocol Administration 0.2 MCG/KG/HR Clindamycin Phosphate 600 mg/ 54 mls @ 54 mls/hr 09/19/17 19:30 09/20/17 08: 23 Dextrose IVPB 54 mls/hr Q8 TIMUR Administration Protocol Pantoprazole Sodium 40 mg 09/18/17 09:00 09/20/17 08:26 Protonix Inj IVP 40 mg DAILY TIMUR Administration - Patient Studies Lab Studies: Lab Studies 09/20/17 09/20/17 09/20/17 Range/Units 06:11 05:19 04:00 WBC (4.8-10.8) K/uL RBC (4.40-5.90) Mil/uL Hgb (12.0-18.0) g/dL Hct (35.0-51.0) % MCV (80.0-94.0) fl MCH (27.0-31.0) pg MCHC (33.0-37.0) g/dL RDW (11.5-14.5) % Plt Count (130-400) K/uL pCO2 44 (35-45) mm/Hg pO2 87 (80-100) mm/Hg HCO3 29.6 H (21-28) mmol/L ABG pH 7.45 (7.35-7.45) ABG Total CO2 32.0 H (22-28) mmol/L ABG O2 Saturation 98.6 H (95-98) % ABG O2 Content 12.8 L (15-23) ML/dL ABG Base Excess 6.0 H (-2.0-3.0) mmol/L ABG Hemoglobin 9.3 L (11.7-17.4) g/dL ABG Carboxyhemoglobin 1.7 H (0.5-1.5) % POC ABG HHb (Measured) 1.4 (0.0-5.0) % ABG Methemoglobin 0.4 (0.0-3.0) % ABG O2 Capacity 13.0 L (16-24) mL/dL Cecilio Test Yes A-a O2 Difference 143.0 mm/Hg Hgb O2 Saturation 96.6 (95.0-98.0) % Vent Mode Prvc ac Mechanical Rate 14 FiO2 40.0 % Tidal Volume 450 PEEP 5 Sodium 137 (132-148) mmol/l Potassium 4.2 (3.6-5.0) MMOL/L Chloride 95 L (98-107) mmol/L Carbon Dioxide 31 H (22-30) mmol/L Anion Gap 15 (10-20) BUN 30 H (9-20) mg/dl Creatinine 0.9 (0.8-1.5) mg/dl Est GFR ( Amer) > 60 Est GFR (Non-Af Amer) > 60 POC Glucose (mg/dL) 99 (65-110) mg/dL Random Glucose 103 (75-110) mg/dL Calcium 7.7 L (8.4-10.2) mg/dL 09/20/17 09/19/17 09/19/17 Range/Units 04:00 21:09 16:39 WBC 8.4 (4.8-10.8) K/uL RBC 4.24 L (4.40-5.90) Mil/uL Hgb 9.2 L (12.0-18.0) g/dL Hct 31.2 L (35.0-51.0) % MCV 73.6 L (80.0-94.0) fl MCH 21.7 L (27.0-31.0) pg MCHC 29.4 L (33.0-37.0) g/dL RDW 19.1 H (11.5-14.5) % Plt Count 244 (130-400) K/uL pCO2 (35-45) mm/Hg pO2 (80-100) mm/Hg HCO3 (21-28) mmol/L ABG pH (7.35-7.45) ABG Total CO2 (22-28) mmol/L ABG O2 Saturation (95-98) % ABG O2 Content (15-23) ML/dL ABG Base Excess (-2.0-3.0) mmol/L ABG Hemoglobin (11.7-17.4) g/dL ABG Carboxyhemoglobin (0.5-1.5) % POC ABG HHb (Measured) (0.0-5.0) % ABG Methemoglobin (0.0-3.0) % ABG O2 Capacity (16-24) mL/dL Cecilio Test A-a O2 Difference mm/Hg Hgb O2 Saturation (95.0-98.0) % Vent Mode Mechanical Rate FiO2 % Tidal Volume PEEP Sodium (132-148) mmol/l Potassium (3.6-5.0) MMOL/L Chloride (98-107) mmol/L Carbon Dioxide (22-30) mmol/L Anion Gap (10-20) BUN (9-20) mg/dl Creatinine (0.8-1.5) mg/dl Est GFR ( Amer) Est GFR (Non-Af Amer) POC Glucose (mg/dL) 86 89 (65-110) mg/dL Random Glucose (75-110) mg/dL Calcium (8.4-10.2) mg/dL 09/19/17 Range/Units 11:15 WBC (4.8-10.8) K/uL RBC (4.40-5.90) Mil/uL Hgb (12.0-18.0) g/dL Hct (35.0-51.0) % MCV (80.0-94.0) fl MCH (27.0-31.0) pg MCHC (33.0-37.0) g/dL RDW (11.5-14.5) % Plt Count (130-400) K/uL pCO2 (35-45) mm/Hg pO2 (80-100) mm/Hg HCO3 (21-28) mmol/L ABG pH (7.35-7.45) ABG Total CO2 (22-28) mmol/L ABG O2 Saturation (95-98) % ABG O2 Content (15-23) ML/dL ABG Base Excess (-2.0-3.0) mmol/L ABG Hemoglobin (11.7-17.4) g/dL ABG Carboxyhemoglobin (0.5-1.5) % POC ABG HHb (Measured) (0.0-5.0) % ABG Methemoglobin (0.0-3.0) % ABG O2 Capacity (16-24) mL/dL Cecilio Test A-a O2 Difference mm/Hg Hgb O2 Saturation (95.0-98.0) % Vent Mode Mechanical Rate FiO2 % Tidal Volume PEEP Sodium (132-148) mmol/l Potassium (3.6-5.0) MMOL/L Chloride (98-107) mmol/L Carbon Dioxide (22-30) mmol/L Anion Gap (10-20) BUN (9-20) mg/dl Creatinine (0.8-1.5) mg/dl Est GFR ( Amer) Est GFR (Non-Af Amer) POC Glucose (mg/dL) 91 (65-110) mg/dL Random Glucose (75-110) mg/dL Calcium (8.4-10.2) mg/dL Laboratory Results - last 24 hr 09/19/17 09/19/17 09/19/17 11:15 16:39 21:09 WBC RBC Hgb Hct MCV MCH MCHC RDW Plt Count pCO2 pO2 HCO3 ABG pH ABG Total CO2 ABG O2 Saturation ABG O2 Content ABG Base Excess ABG Hemoglobin ABG Carboxyhemoglobin POC ABG HHb (Measured) ABG Methemoglobin ABG O2 Capacity Cecilio Test A-a O2 Difference Hgb O2 Saturation Vent Mode Mechanical Rate FiO2 Tidal Volume PEEP Sodium Potassium Chloride Carbon Dioxide Anion Gap BUN Creatinine Est GFR ( Amer) Est GFR (Non-Af Amer) POC Glucose (mg/dL) 91 89 86 Random Glucose Calcium 09/20/17 09/20/17 09/20/17 04:00 04:00 05:19 WBC 8.4 RBC 4.24 L Hgb 9.2 L Hct 31.2 L MCV 73.6 L MCH 21.7 L MCHC 29.4 L RDW 19.1 H Plt Count 244 pCO2 44 pO2 87 HCO3 29.6 H ABG pH 7.45 ABG Total CO2 32.0 H ABG O2 Saturation 98.6 H ABG O2 Content 12.8 L ABG Base Excess 6.0 H ABG Hemoglobin 9.3 L ABG Carboxyhemoglobin 1.7 H POC ABG HHb (Measured) 1.4 ABG Methemoglobin 0.4 ABG O2 Capacity 13.0 L Cecilio Test Yes A-a O2 Difference 143.0 Hgb O2 Saturation 96.6 Vent Mode Prvc ac Mechanical Rate 14 FiO2 40.0 Tidal Volume 450 PEEP 5 Sodium 137 Potassium 4.2 Chloride 95 L Carbon Dioxide 31 H Anion Gap 15 BUN 30 H Creatinine 0.9 Est GFR ( Amer) > 60 Est GFR (Non-Af Amer) > 60 POC Glucose (mg/dL) Random Glucose 103 Calcium 7.7 L 09/20/17 06:11 WBC RBC Hgb Hct MCV MCH MCHC RDW Plt Count pCO2 pO2 HCO3 ABG pH ABG Total CO2 ABG O2 Saturation ABG O2 Content ABG Base Excess ABG Hemoglobin ABG Carboxyhemoglobin POC ABG HHb (Measured) ABG Methemoglobin ABG O2 Capacity Cecilio Test A-a O2 Difference Hgb O2 Saturation Vent Mode Mechanical Rate FiO2 Tidal Volume PEEP Sodium Potassium Chloride Carbon Dioxide Anion Gap BUN Creatinine Est GFR ( Amer) Est GFR (Non-Af Amer) POC Glucose (mg/dL) 99 Random Glucose Calcium Fingerstick Blood Sugar Results: 99 Review of Systems - Review of Systems Systems not reviewed;Unavailable: Intubated Assessment/Plan (1) Cardiogenic shock Assessment and plan: 57yo M. No known PMHx, patient had recent cardiac arrest, was successfully resuscitated. Now in cardiogenic shock on pressors. Neuro: stopped all sedation. Pulm: acute respiratory failure on vent. not tolerating PS trials for 2 days, CXR worse today. starting diuretics. obtaining CT chest to better assess. CV: cardiogenic shock weaned off dobutamine, still mildly hypotensive. repeating echo to assess function. Hem: anemia of critical illness Renal: no acute issues, urine output wnl Endo: no acute issues GI: NPO, Jevity@55 ID: no acute issues, no fever, no wbc. DVT proph - lovenox GI proph - protonix mcgowan for strict I/O's during acute illness Code status - full code Critical Care Time spent 35 minutes Multi-disciplinary rounds were performed with house staff, nursing, speech therapy, respiratory therapy, pharmacy and nutrition with integrated input from the primary team/attending and other consulting services. The documented time is cumulative and includes review of patient data/exams/labs/chart review and examination of the patient on rounds and throughout the day; time is exclusive of any procedures or teaching time. Current Visit: Yes Status: Acute
--- NOTE | 2017-09-20 12:35 | RAD ---
HISTORY: ETT placement COMPARISON: Portable chest 09/19/2017. FINDINGS: Endotracheal tube does not appear significantly changed in position with nasogastric tube apparently removed. LUNGS: In image appears to been captured data closed an expiration. There is no interval improvement in bilateral infiltrates with marginal increase in right upper lobe infiltrate noted focally. Left apical pleural thickening or loculated pleural fluid is unchanged though left costophrenic sulcus is better defined suggesting diminished left basilar pleural fluid. None is seen at the right. No pneumothorax bilaterally. PLEURA: As above. CARDIOVASCULAR: Prominent appearing cardiac silhouette is unchanged. No definite pulmonary vascular derangement appreciable grossly. OSSEOUS STRUCTURES: No significant abnormalities. VISUALIZED UPPER ABDOMEN: Normal. OTHER FINDINGS: None. IMPRESSION: Bilateral infiltrates are reiterated though right apical patchy airspace disease increased. Examination appears captured at or close to end expiration, potentially resulting in atelectasis. Limited bilateral infiltrates are otherwise not significantly changed. Left apical pleural fluid or thickening unchanged. ET tube appears to been removed.
--- NOTE | 2017-09-20 13:59 | CT ---
PROCEDURE: CT Chest without contrast HISTORY: s/p cardiac arrest, r/o chf or pna COMPARISON: Chest CT without contrast 09/18/2017. TECHNIQUE: Contiguous axial images were obtained through the chest without intravenous contrast enhancement. Sagittal and coronal reconstructions were performed. Radiation dose (DLP): 480.91 mGy-cm. This CT exam was performed using one or more of the following dose reduction techniques: Automated exposure control, adjustment of the mA and/or kV according to patient size, and/or use of iterative reconstruction technique. FINDINGS: Endotracheal intubation stable in position with nasogastric tube identified terminating the distal esophagus. Advancement of the NG tube into the stomach is recommended follow-up by radiographic confirmation. LUNGS: Bilateral multifocal airspace disease again appreciated remaining moderate in severity though ground-glass opacity appears slightly diminished at the bilateral apices. Trace peripheral emphysematous changes at the upper lung zones is again appreciated. Bilateral basilar compressive atelectasis is reiterated, remaining limited in overall volume. Central airways remain clear exclusive the aforementioned ET tube. MEDIASTINUM: Injected fat within the mediastinum as well as extra thoracic subcutaneous fat indicates anasarca once again. Stable mediastinal lymphadenopathy noted. PLEURA: Minimal right and borderline left pleural effusions evident. BONES: No fracture. No destructive lesion. UPPER ABDOMEN: Grossly unremarkable. OTHER FINDINGS: None. IMPRESSION: 1. Mildly improving ground-glass opacity at the bilateral upper lung zones with no significant change in moderate bilateral pulmonary infiltrates potentially reflecting limited ARDS. Further clinical correlation is recommended. Anasarca noted once again. 2. Stable mediastinal adenopathy. 3. Nasogastric tube terminates in the distal esophagus. Advancement into the stomach with follow-up confirmation radiograph advised.
[2017-09-20] MEDS: Milrinone 20mg/100ml D5W 100 ML IV SCH ×2 (14:11→23:34)
--- NOTE | 2017-09-20 21:38 | CP.PCM.CON ---
History of Present Illness - History of Present Illness History of Present Illness: consultation for evaluation of cardiogenic shock and low output heart failure HPI: 57-year-old -[place] male who was brought in for symptoms of respiratory failure initially no known prior history secondary to schizophrenia intubated after having PEA cardiac arrest. Patient underwent an echocardiogram showing severe LV systolic dysfunction I was called to evaluate patient's cardiac status secondary to him going into flash pulmonary edema after stopping the dobutamine inotropic support. History prior to this admission is unknown there is one record of his evaluation for psychiatric schizophrenia at [facility] about 2 years ago other than that most of the information was reviewed and obtained via review of the medical records. As per the review of medical records his CPR cardiac arrest was about 10 minutes was secondary to PEA at the time of my evaluation patient was intubated was awake somewhat responsive heart rate was stable in the 70s patient did have a S3 gallop on physical examination has cool peripheries with systolic in the 80s with bilateral rales and jugular venous distention consistent with low output cardiac state and acute congestive heart failure. Review of Systems - Review of Systems Systems not reviewed;Unavailable: Acuity of Condition - Constitutional Constitutional: As Per HPI - EENT Eyes: As Per HPI Ears: As Per HPI Nose/Mouth/Throat: As Per HPI - Cardiovascular Cardiovascular: As Per HPI - Respiratory Respiratory: As Per HPI - Gastrointestinal Gastrointestinal: As Per HPI - Genitourinary Genitourinary: As Per HPI - Reproductive: Male Reproductive:Male: As Per HPI - Musculoskeletal Musculoskeletal: As Per HPI - Integumentary Integumentary: As Per HPI - Neurological Neurological: As Per HPI - Psychiatric Psychiatric: As Per HPI - Endocrine Endocrine: As Per HPI - Hematologic/Lymphatic Hematologic: As Per HPI Past Patient History - Tetanus Immunizations Tetanus Immunization: Unknown - Past Medical History & Family History Past Medical History?: Yes - Past Social History Smoking Status: Light Smoker < 10 Cigarettes Daily - CARDIAC Hx Cardiac Disorders: Yes Hx Hypertension: Yes - PULMONARY Hx Respiratory Disorders: No Hx Tuberculosis: No - NEUROLOGICAL Hx Neurological Disorder: No - HEENT Hx HEENT Problems: No - RENAL Hx Chronic Kidney Disease: No - ENDOCRINE/METABOLIC Hx Endocrine Disorders: No - HEMATOLOGICAL/ONCOLOGICAL Hx Blood Disorders: No Hx Human Immunodeficiency Virus (HIV): No - INTEGUMENTARY Hx Dermatological Problems: No - MUSCULOSKELETAL/RHEUMATOLOGICAL Hx Musculoskeletal Disorders: No Hx Falls: No - GASTROINTESTINAL Hx Gastrointestinal Disorders: No - GENITOURINARY/GYNECOLOGICAL Hx Genitourinary Disorders: No Hx Sexually Transmitted Disorders: No - PSYCHIATRIC Hx Psychophysiologic Disorder: Yes Hx Schizophrenia: Yes Hx Substance Use: No (DENIES) - SURGICAL HISTORY Hx Surgeries: No - ANESTHESIA Hx Anesthesia: No Hx Anesthesia Reactions: No Hx Malignant Hyperthermia: No Meds Allergies/Adverse Reactions: Allergies Allergy/AdvReac Type Severity Reaction Status Date / Time Penicillins Allergy RASH Verified 09/15/17 20:25 - Medications Medications: Current Medications Acetaminophen (Tylenol 650mg/20.3ml Solution Ud) 975 mg NG Q6 PRN PRN Reason: Rigors Albuterol/Ipratropium (Duoneb 3 Mg/0.5 Mg (3 Ml) Ud) 3 ml INH RQ4 TIMUR Last Admin: 09/20/17 15:43 Dose: 3 ml Artificial Tears (Lacri-Lube) 1 applic OU HS TIMUR Last Admin: 09/19/17 21:29 Dose: 1 applic Dextrose (Dextrose 50% Inj) 0 ml IV STAT PRN; Protocol PRN Reason: Hypoglycemia Protocol Enoxaparin Sodium (Lovenox) 40 mg SC DAILY TIMUR PRN Reason: Protocol Last Admin: 09/20/17 08:24 Dose: 40 mg Furosemide (Lasix) 40 mg IV Q12H TIMUR Last Admin: 09/20/17 10:21 Dose: 40 mg Clindamycin Phosphate 600 mg/ (Dextrose) 54 mls @ 54 mls/hr IVPB Q8 TIMUR PRN Reason: Protocol Last Admin: 09/20/17 17:22 Dose: 54 mls/hr Milrinone Lactate/Dextrose (Primacor 20mg/100ml D5w) 100 mls @ 8.522 mls/hr IV .[id number] TIMUR; 0.375 MCG/KG/MIN PRN Reason: Protocol Last Titration: 09/20/17 20:00 Dose: 0.525 mcg/kg/min, 11.931 mls/hr Pantoprazole Sodium (Protonix Inj) 40 mg IVP DAILY TIMUR Last Admin: 09/20/17 08:26 Dose: 40 mg Physical Exam - Constitutional Appears: Toxic, In Acute Distress, Older Than Stated Age, Chronically Ill - Head Exam Head Exam: ATRAUMATIC - Eye Exam Eye Exam: Normal appearance, PERRL Pupil Exam: NORMAL ACCOMODATION, PERRL - ENT Exam ENT Exam: Mucous Membranes Moist, Normal Exam - Neck Exam Neck exam: Positive for: Normal Inspection - Respiratory Exam Respiratory Exam: Rales, Rhonchi, NORMAL BREATHING PATTERN Additional comments: intubated - Cardiovascular Exam Cardiovascular Exam: REGULAR RHYTHM, +S1, +S2, Systolic Murmur Additional comments: +ve S3 gallop on exam +ve JVP - GI/Abdominal Exam GI & Abdominal Exam: Normal Bowel Sounds - Extremities Exam Additional comments: digital ulceration noted - Neurological Exam Neurological exam: Altered - Psychiatric Exam Psychiatric exam: Agitated - Skin Skin Exam: Normal Color, Warm Results - Vital Signs Recent Vital Signs: Last Vital Signs Temp 97.1 F L 09/20/17 16:00 Pulse 83 09/20/17 19:30 Resp 17 09/20/17 19:30 BP 95/56 L 09/20/17 19:30 Pulse Ox 100 09/20/17 19:30 - Labs Result Diagrams: 09/20/17 04:00 09/20/17 04:00 Labs: Laboratory Results - last 24 hr 09/20/17 09/20/17 09/20/17 04:00 04:00 05:19 WBC 8.4 RBC 4.24 L Hgb 9.2 L Hct 31.2 L MCV 73.6 L MCH 21.7 L MCHC 29.4 L RDW 19.1 H Plt Count 244 pCO2 44 pO2 87 HCO3 29.6 H ABG pH 7.45 ABG Total CO2 32.0 H ABG O2 Saturation 98.6 H ABG O2 Content 12.8 L ABG Base Excess 6.0 H ABG Hemoglobin 9.3 L ABG Carboxyhemoglobin 1.7 H POC ABG HHb (Measured) 1.4 ABG Methemoglobin 0.4 ABG O2 Capacity 13.0 L Cecilio Test Yes A-a O2 Difference 143.0 Hgb O2 Saturation 96.6 Vent Mode Prvc ac Mechanical Rate 14 FiO2 40.0 Tidal Volume 450 PEEP 5 Sodium 137 Potassium 4.2 Chloride 95 L Carbon Dioxide 31 H Anion Gap 15 BUN 30 H Creatinine 0.9 Est GFR ( Amer) > 60 Est GFR (Non-Af Amer) > 60 POC Glucose (mg/dL) Random Glucose 103 Calcium 7.7 L NT-Pro-B Natriuret Pep 09/20/17 09/20/1718 06:11 11:17 12:17 WBC RBC Hgb Hct MCV MCH MCHC RDW Plt Count pCO2 pO2 HCO3 ABG pH ABG Total CO2 ABG O2 Saturation ABG O2 Content ABG Base Excess ABG Hemoglobin ABG Carboxyhemoglobin POC ABG HHb (Measured) ABG Methemoglobin ABG O2 Capacity Cecilio Test A-a O2 Difference Hgb O2 Saturation Vent Mode Mechanical Rate FiO2 Tidal Volume PEEP Sodium Potassium Chloride Carbon Dioxide Anion Gap BUN Creatinine Est GFR ( Amer) Est GFR (Non-Af Amer) POC Glucose (mg/dL) 99 189 H Random Glucose Calcium NT-Pro-B Natriuret Pep 3240 H 09/20/17 16:45 WBC RBC Hgb Hct MCV MCH MCHC RDW Plt Count pCO2 pO2 HCO3 ABG pH ABG Total CO2 ABG O2 Saturation ABG O2 Content ABG Base Excess ABG Hemoglobin ABG Carboxyhemoglobin POC ABG HHb (Measured) ABG Methemoglobin ABG O2 Capacity Cceilio Test A-a O2 Difference Hgb O2 Saturation Vent Mode Mechanical Rate FiO2 Tidal Volume PEEP Sodium Potassium Chloride Carbon Dioxide Anion Gap BUN Creatinine Est GFR ( Amer) Est GFR (Non-Af Amer) POC Glucose (mg/dL) 118 H Random Glucose Calcium NT-Pro-B Natriuret Pep Assessment & Plan (1) CHF (congestive heart failure) Assessment and Plan: repeat BNP echo reviewed which shows CO is 2.2 and CI is 1.5 l/m/m2 c/w low output state exam c/w acute decompensated systolic chf exacerbation and cardiogenic shock initiate on IV milrinone will need complete heart catheterization to be arranged in am npo p mn Status: Acute (2) Cardiogenic shock Assessment and Plan: plan for CHcx in am keep pt on IV milrinone if needed can add dobutamine for support Status: Acute (3) Respiratory arrest before cardiac arrest Assessment and Plan: vent support per ICU Status: Acute (4) Schizophrenia Status: Acute
[2017-09-20] MEDS: Mineral Oil/White Petrolatum Ophth Oint OU SCH (22:00)
[2017-09-21] MEDS ORDERED: Dexmedetomidine Hydrochloride 400 MCG in Sodium Chloride 0.9% 96 ML IV ONE ×2 (00:49→11:43)
[2017-09-21] MEDS: Albuterol-Ipratrop 3 mg / 0.5 (3 ml) UD INH SCH ×5 (05:15→19:29)
[2017-09-21 05:47] LABS: HEMOGLOBIN 9.3 g/dL (12.0-18.0); MEAN CELL VOLUME 72.2 fl (80.0-94.0); MEAN CORPUSCULAR HEMOGLOBIN 21.4 pg (27.0-31.0); MEAN CORPUSCULAR HGB CONC 29.6 g/dL (33.0-37.0); RBC 4.33 Mil/uL (4.40-5.90); RED CELL DISTRIBUTION WIDTH 18.5 % (11.5-14.5); WHITE BLOOD COUNT 6.9 K/uL (4.8-10.8)
[2017-09-21 05:55] LABS: ARTERIAL BLOOD GAS HCO3 32.6 mmol/L (21-28); ARTERIAL BLOOD GAS O2 SAT 99.7 % (95-98); ARTERIAL BLOOD GAS PCO2 48 mm/Hg (35-45); ARTERIAL BLOOD GAS PH 7.47 (7.35-7.45); ARTERIAL BLOOD GAS PO2 175 mm/Hg (80-100); ARTERIAL BLOOD GAS TCO2 36.4 mmol/L (22-28)
[2017-09-21 06:05] LABS: B-TYPE NATRIURETIC PEPTIDE 2460 pg/ml (0-900)
[2017-09-21 06:14] LABS: ALB/GLOB RATIO 0.6 (1.0-2.1); ALBUMIN 2.4 g/dL (3.5-5.0); ALT/SGPT 54 U/L (21-72); AST/SGOT 47 U/L (17-59); BLOOD UREA NITROGEN 24 mg/dl (9-20); CALCIUM 7.9 mg/dL (8.4-10.2); GFR AFRICAN-AMERICAN > 60; GFR NON-AFRICAN AMERICAN > 60
[2017-09-21] MEDS: Milrinone 20mg/100ml D5W 100 ML IV SCH ×2 (08:12→19:49)
[2017-09-21 09:48] LABS: VENOUS BLOOD GAS BASE EXCESS 8.9 mmol/L (0.0-2.0); VENOUS BLOOD GAS PCO2 56 mmHg (40-60); VENOUS BLOOD GAS PO2 42 mm/Hg (30-55); VENOUS BLOOD PH 7.41 (7.32-7.43)
--- NOTE | 2017-09-21 10:37 | CP.PCM.PN ---
Subjective - Date & Time of Evaluation Date of Evaluation: 09/21/17 Time of Evaluation: 10:37 - Subjective Subjective: more awake and responsive Objective - Vital Signs/Intake and Output Vital Signs (last 24 hours): Temp Pulse Resp BP Pulse Ox 97.2 F L 78 16 99/62 L 100 09/21/17 08:00 09/21/17 08:00 09/21/17 08:00 09/21/17 08:00 09/21/17 08:00 Intake and Output: 09/21/17 09/21/17 06:59 18:59 Intake Total 1025 100 Output Total 2000 Balance -975 100 - Medications Medications: Current Medications Acetaminophen (Tylenol 650mg/20.3ml Solution Ud) 975 mg NG Q6 PRN PRN Reason: Rigors Albuterol/Ipratropium (Duoneb 3 Mg/0.5 Mg (3 Ml) Ud) 3 ml INH RQ4 TIMUR Last Admin: 09/21/17 07:37 Dose: 3 ml Artificial Tears (Lacri-Lube) 1 applic OU HS TIMUR Last Admin: 09/20/17 22:00 Dose: 1 applic Dextrose (Dextrose 50% Inj) 0 ml IV STAT PRN; Protocol PRN Reason: Hypoglycemia Protocol Furosemide (Lasix) 40 mg IV Q12H TIMUR Last Admin: 09/20/17 22:00 Dose: 40 mg Clindamycin Phosphate 600 mg/ (Dextrose) 54 mls @ 54 mls/hr IVPB Q8 TIMUR PRN Reason: Protocol Last Admin: 09/21/17 00:22 Dose: 54 mls/hr Milrinone Lactate/Dextrose (Primacor 20mg/100ml D5w) 100 mls @ 8.522 mls/hr IV .[id number] TIMUR; 0.375 MCG/KG/MIN PRN Reason: Protocol Last Admin: 09/21/17 08:12 Dose: 0.525 mcg/kg/min, 11.931 mls/hr Pantoprazole Sodium (Protonix Inj) 40 mg IVP DAILY TIMUR Last Admin: 09/20/17 08:26 Dose: 40 mg - Labs Labs: 09/21/17 04:20 09/21/17 04:20 PT 17.4 Seconds (9.8-13.1) H 09/18/17 02:25 INR 1.6 (0.9-1.2) H 09/18/17 02:25 - Constitutional Appears: In Acute Distress - Head Exam Head Exam: ATRAUMATIC, NORMAL INSPECTION, NORMOCEPHALIC - Eye Exam Eye Exam: EOMI, Normal appearance, PERRL Pupil Exam: NORMAL ACCOMODATION, PERRL - ENT Exam ENT Exam: Mucous Membranes Moist, Normal Exam - Neck Exam Neck Exam: Full ROM, Normal Inspection. absent: Lymphadenopathy - Respiratory Exam Respiratory Exam: Rales, Rhonchi, NORMAL BREATHING PATTERN - Cardiovascular Exam Cardiovascular Exam: Diastolic murmur, REGULAR RHYTHM, +S1, +S2, Murmur - GI/Abdominal Exam GI & Abdominal Exam: Soft, Normal Bowel Sounds. absent: Tenderness - Extremities Exam Extremities Exam: Full ROM, Normal Capillary Refill, Normal Inspection. absent : Joint Swelling, Pedal Edema - Back Exam Back Exam: NORMAL INSPECTION - Neurological Exam Neurological Exam: Alert, Awake - Psychiatric Exam Psychiatric exam: Normal Affect, Normal Mood - Skin Skin Exam: Dry, Intact, Normal Color, Warm Assessment and Plan (1) CHF (congestive heart failure) Assessment & Plan: in acute failure improving with milrinone will consider adding RAAS modulators Status: Acute (2) Cardiogenic shock Assessment & Plan: inotropic support [facility] to[facility] at [facility] Status: Acute (3) Respiratory arrest before cardiac arrest Assessment & Plan: vent support Status: Acute (4) Schizophrenia Status: Acute
[2017-09-21] MEDS: Enoxaparin 40 mg Syringe SC SCH (10:54)
--- NOTE | 2017-09-21 12:23 | CP.CCUPN ---
CCU Subjective - Physician Review Subjective (Free Text): Sedated on Precedex at 0.375 mcg dose, at RASS neg 2. He does follow simple commands, no distress otherwise, still on Mirinone support. To leave for [facility] for cardiac cath today. Other VS and I/Os reviewed. He is neg 1.5L fluid balance. ROS: No other pertinent negs or positives on 10+ system review obtainable due to present sedation and intubated state. PMSFH: All other Nursing and physician documentation reviewed to date; no new pertinent info noted relevant to current medical problems. EXAM- HEENT: no icterus, no gaze preference, pupils 2 mm equal and sluggishly reactive , no icterus NECK: No JVD, supple, carotids equal upstroke bilat/no bruits CHEST: decreased BS bases, no wheezes audible HEART: regular distant, tachy S1S2, no rubs. ABD: soft, no distention, no tympany, no palp tenderness, BS hypoactive. EXT: trace edema / anasarca bilat. No peripheral/ digital cyanosis, no calf tenderness or palpable cords, distal pulses intact and symmetrical. NEURO: diminished tone all extremities SKIN: no rashes, warm and dry. LABS: Lactate 0.8 WBC= 6.9 HGB= 9.3 PLTs= 263 K INR= 1.6 on 09/18. ABG= 7.45/44/87 on 40% oxygen. Na= 139 K= 3.6 HCO3= 34 CL= 97 BUN/Cr= 24/0.8 BS= 91 CXR: ETT position OK above niya, gastric tube appears in mid-esophagus, no new consolidation, previous interstitial changes appear to be slowly resolving ( my interp). IMPRESSION / MAJOR PROBLEMS NOW: 1. Acute Hypoxemic Resp Failure with Resp Arrest 2 Aspiration event ( oropharyngeal pooling noted, required suctioning prior to and during intubation ) 2. Secondary Cardiac Arrest from congestive Cardiomyopathy 3. Anoxic encephalopathy, r/o other Toxic-Metabolic Encephalopathy 4. Azotemia, r/o ANTON / ATN with mild Hyperkalemia PLAN: 1. FiO2 able to be reduced to 40% if not lower to 35% today. 2. Cardiac cath today. 3. Milrinone support, mixed venous SvO2 appears acceptable as well as normalization of lactates. 4. Advance gastric tube further to stomach. 5. CT Brain results reviewed, no significant severe anoxic encephalopathic changes. 6. Check repeat coags. CCU Objective - Vital Signs / Intake & Output Vital Signs (Last 4 hours): Vital Signs BP 09/21/17 10:56 92/57 L Intake and Output (Last 8hrs): Intake & Output 09/20/17 09/21/17 09/21/17 22:59 06:59 14:59 Intake Total 525 840 100 Output Total 1600 1999 Balance -1075 -1160 100 Weight 168 lb Intake: IV 40 200 100 Intake, Piggyback 100 50 Tube Feeding 385 440 Free Water Flush 150 Output: Urine 1600 1999 Urethral (Mendiola) 1600 1999 - Physical Exam Head: Positive for: Atraumatic, Normocephalic Pupils: Positive for: Sluggish Conjunctiva: Positive for: Normal Mouth: Positive for: Moist Mucous Membranes Respiratory/Chest: Positive for: Clear to Auscultation Cardiovascular: Positive for: Regular Rate and Rhythm Abdomen: Positive for: Normal Bowel Sounds. Negative for: Tenderness, Distention Neurological: Positive for: Other (sedated) - Medications Active Medications: Active Medications Generic Name Dose Route Start Last Admin Trade Name Freq PRN Reason Stop Dose Admin Acetaminophen 975 mg 09/18/17 02:30 Tylenol 650mg/20.3ml Solution Ud NG Q6 PRN Rigors Albuterol/Ipratropium 3 ml 09/18/17 12:00 09/21/17 11:08 Duoneb 3 Mg/0.5 Mg (3 Ml) Ud INH 3 ml RQ4 TIMUR Administration Artificial Tears 1 applic 09/18/17 22:00 09/20/17 22:00 Lacri-Lube OU 1 applic HS TIMUR Administration Dextrose 0 ml 09/18/17 05:13 Dextrose 50% Inj IV STAT PRN Hypoglycemia Protocol Protocol Furosemide 40 mg 09/20/17 10:00 09/21/17 10:56 Lasix IV Not Given Q12H TIMUR Clindamycin Phosphate 600 mg/ 54 mls @ 54 mls/hr 09/19/17 19:30 09/21/17 10: 53 Dextrose IVPB 54 mls/hr Q8 TIMUR Administration Protocol Milrinone Lactate/Dextrose 100 mls @ 8.522 mls/hr 09/20/17 12:00 09/21/17 08: 12 Primacor 20mg/100ml D5w IV 0.525 mcg/kg/min .[id number] TIMUR 11.931 mls/hr Protocol Administration 0.375 MCG/KG/MIN Pantoprazole Sodium 40 mg 09/18/17 09:00 09/21/17 10:44 Protonix Inj IVP 40 mg DAILY TIMUR Administration - Patient Studies Lab Studies: Microbiology Studies 09/18/17 16:00 Gram Stain - Final Trachasp Sputum Culture - Final NORMAL ORAL CINDY Lab Studies 09/21/17 09/21/17 09/21/17 Range/Units 11:38 09:41 04:46 WBC (4.8-10.8) K/uL RBC (4.40-5.90) Mil/uL Hgb (12.0-18.0) g/dL Hct (35.0-51.0) % MCV (80.0-94.0) fl MCH (27.0-31.0) pg MCHC (33.0-37.0) g/dL RDW (11.5-14.5) % Plt Count (130-400) K/uL pCO2 (35-45) mm/Hg pO2 42 (80-100) mm/Hg HCO3 (21-28) mmol/L ABG pH (7.35-7.45) ABG Total CO2 (22-28) mmol/L ABG O2 Saturation (95-98) % ABG Base Excess (-2.0-3.0) mmol/L ABG Potassium (3.6-5.2) mmol/L VBG pH 7.41 (7.32-7.43) VBG pCO2 56 (40-60) mmHg VBG HCO3 31.3 mmol/L VBG Total CO2 37.2 H (22-28) mmol/L VBG O2 Sat (Calc) 79.7 H (40-65) % VBG Base Excess 8.9 H (0.0-2.0) mmol/L VBG Potassium 3.7 (3.6-5.2) mmol/L A-a O2 Difference mm/Hg Sodium 136.0 (132-148) mmol/L Glucose 107 (75-110) mg/dL Lactate 0.8 (0.7-2.1) mmol/L Vent Mode Mechanical Rate FiO2 40.0 % Tidal Volume PEEP 5 Potassium (3.6-5.0) MMOL/L Chloride 102.0 (98-107) mmol/L Carbon Dioxide (22-30) mmol/L Anion Gap (10-20) BUN (9-20) mg/dl Creatinine (0.8-1.5) mg/dl Est GFR ( Amer) Est GFR (Non-Af Amer) POC Glucose (mg/dL) 144 H 105 (65-110) mg/dL Random Glucose (75-110) mg/dL Calcium (8.4-10.2) mg/dL Total Bilirubin (0.2-1.3) mg/dl AST (17-59) U/L ALT (21-72) U/L Alkaline Phosphatase (38-126) U/L NT-Pro-B Natriuret Pep (0-900) pg/ml Total Protein (6.3-8.2) G/DL Albumin (3.5-5.0) g/dL Globulin (2.2-3.9) gm/dL Albumin/Globulin Ratio (1.0-2.1) Arterial Blood Potassium (3.6-5.2) mmol/L Venous Blood Potassium 3.7 (3.6-5.2) mmol/L 09/21/17 09/21/17 09/20/17 Range/Units 04:20 04:20 21:45 WBC 6.9 (4.8-10.8) K/uL RBC 4.33 L (4.40-5.90) Mil/uL Hgb 9.3 L (12.0-18.0) g/dL Hct 31.3 L (35.0-51.0) % MCV 72.2 L (80.0-94.0) fl MCH 21.4 L (27.0-31.0) pg MCHC 29.6 L (33.0-37.0) g/dL RDW 18.5 H (11.5-14.5) % Plt Count 263 (130-400) K/uL pCO2 (35-45) mm/Hg pO2 (80-100) mm/Hg HCO3 (21-28) mmol/L ABG pH (7.35-7.45) ABG Total CO2 (22-28) mmol/L ABG O2 Saturation (95-98) % ABG Base Excess (-2.0-3.0) mmol/L ABG Potassium (3.6-5.2) mmol/L VBG pH (7.32-7.43) VBG pCO2 (40-60) mmHg VBG HCO3 mmol/L VBG Total CO2 (22-28) mmol/L VBG O2 Sat (Calc) (40-65) % VBG Base Excess (0.0-2.0) mmol/L VBG Potassium (3.6-5.2) mmol/L A-a O2 Difference mm/Hg Sodium 139 (132-148) mmol/L Glucose (75-110) mg/dL Lactate (0.7-2.1) mmol/L Vent Mode Mechanical Rate FiO2 % Tidal Volume PEEP Potassium 3.6 (3.6-5.0) MMOL/L Chloride 97 L (98-107) mmol/L Carbon Dioxide 34 H (22-30) mmol/L Anion Gap 12 (10-20) BUN 24 H (9-20) mg/dl Creatinine 0.8 (0.8-1.5) mg/dl Est GFR ( Amer) > 60 Est GFR (Non-Af Amer) > 60 POC Glucose (mg/dL) 110 (65-110) mg/dL Random Glucose 91 (75-110) mg/dL Calcium 7.9 L (8.4-10.2) mg/dL Total Bilirubin 0.5 (0.2-1.3) mg/dl AST 47 (17-59) U/L ALT 54 (21-72) U/L Alkaline Phosphatase 138 H (38-126) U/L NT-Pro-B Natriuret Pep 2460 H (0-900) pg/ml Total Protein 6.4 (6.3-8.2) G/DL Albumin 2.4 L (3.5-5.0) g/dL Globulin 4.0 H (2.2-3.9) gm/dL Albumin/Globulin Ratio 0.6 L (1.0-2.1) Arterial Blood Potassium (3.6-5.2) mmol/L Venous Blood Potassium (3.6-5.2) mmol/L 09/20/17 09/20/17 09/19/17 Range/Units 16:45 12:17 04:00 WBC (4.8-10.8) K/uL RBC (4.40-5.90) Mil/uL Hgb (12.0-18.0) g/dL Hct (35.0-51.0) % MCV (80.0-94.0) fl MCH (27.0-31.0) pg MCHC (33.0-37.0) g/dL RDW (11.5-14.5) % Plt Count (130-400) K/uL pCO2 48 H (35-45) mm/Hg pO2 175 H (80-100) mm/Hg HCO3 32.6 H (21-28) mmol/L ABG pH 7.47 H (7.35-7.45) ABG Total CO2 36.4 H (22-28) mmol/L ABG O2 Saturation 99.7 H (95-98) % ABG Base Excess 9.7 H (-2.0-3.0) mmol/L ABG Potassium 3.7 (3.6-5.2) mmol/L VBG pH (7.32-7.43) VBG pCO2 (40-60) mmHg VBG HCO3 mmol/L VBG Total CO2 (22-28) mmol/L VBG O2 Sat (Calc) (40-65) % VBG Base Excess (0.0-2.0) mmol/L VBG Potassium (3.6-5.2) mmol/L A-a O2 Difference 50.0 mm/Hg Sodium 135.0 (132-148) mmol/L Glucose 116 H (75-110) mg/dL Lactate 0.9 (0.7-2.1) mmol/L Vent Mode Prvc ac Mechanical Rate 12 FiO2 % Tidal Volume 450 PEEP Potassium (3.6-5.0) MMOL/L Chloride (98-107) mmol/L Carbon Dioxide (22-30) mmol/L Anion Gap (10-20) BUN (9-20) mg/dl Creatinine (0.8-1.5) mg/dl Est GFR ( Amer) Est GFR (Non-Af Amer) POC Glucose (mg/dL) 118 H (65-110) mg/dL Random Glucose (75-110) mg/dL Calcium (8.4-10.2) mg/dL Total Bilirubin (0.2-1.3) mg/dl AST (17-59) U/L ALT (21-72) U/L Alkaline Phosphatase (38-126) U/L NT-Pro-B Natriuret Pep 3240 H (0-900) pg/ml Total Protein (6.3-8.2) G/DL Albumin (3.5-5.0) g/dL Globulin (2.2-3.9) gm/dL Albumin/Globulin Ratio (1.0-2.1) Arterial Blood Potassium 3.7 (3.6-5.2) mmol/L Venous Blood Potassium (3.6-5.2) mmol/L Laboratory Results - last 24 hr 09/19/17 09/20/17 09/20/17 04:00 12:17 16:45 WBC RBC Hgb Hct MCV MCH MCHC RDW Plt Count pCO2 48 H pO2 175 H HCO3 32.6 H ABG pH 7.47 H ABG Total CO2 36.4 H ABG O2 Saturation 99.7 H ABG Base Excess 9.7 H ABG Potassium 3.7 VBG pH VBG pCO2 VBG HCO3 VBG Total CO2 VBG O2 Sat (Calc) VBG Base Excess VBG Potassium A-a O2 Difference 50.0 Sodium 135.0 Glucose 116 H Lactate 0.9 Vent Mode Prvc ac Mechanical Rate 12 FiO2 Tidal Volume 450 PEEP Potassium Chloride Carbon Dioxide Anion Gap BUN Creatinine Est GFR ( Amer) Est GFR (Non-Af Amer) POC Glucose (mg/dL) 118 H Random Glucose Calcium Total Bilirubin AST ALT Alkaline Phosphatase NT-Pro-B Natriuret Pep 3240 H Total Protein Albumin Globulin Albumin/Globulin Ratio Arterial Blood Potassium 3.7 Venous Blood Potassium 09/20/17 09/21/17 09/21/17 21:45 04:20 04:20 WBC 6.9 RBC 4.33 L Hgb 9.3 L Hct 31.3 L MCV 72.2 L MCH 21.4 L MCHC 29.6 L RDW 18.5 H Plt Count 263 pCO2 pO2 HCO3 ABG pH ABG Total CO2 ABG O2 Saturation ABG Base Excess ABG Potassium VBG pH VBG pCO2 VBG HCO3 VBG Total CO2 VBG O2 Sat (Calc) VBG Base Excess VBG Potassium A-a O2 Difference Sodium 139 Glucose Lactate Vent Mode Mechanical Rate FiO2 Tidal Volume PEEP Potassium 3.6 Chloride 97 L Carbon Dioxide 34 H Anion Gap 12 BUN 24 H Creatinine 0.8 Est GFR ( Amer) > 60 Est GFR (Non-Af Amer) > 60 POC Glucose (mg/dL) 110 Random Glucose 91 Calcium 7.9 L Total Bilirubin 0.5 AST 47 ALT 54 Alkaline Phosphatase 138 H NT-Pro-B Natriuret Pep 2460 H Total Protein 6.4 Albumin 2.4 L Globulin 4.0 H Albumin/Globulin Ratio 0.6 L Arterial Blood Potassium Venous Blood Potassium 09/21/17 09/21/17 09/21/17 04:46 09:41 11:38 WBC RBC Hgb Hct MCV MCH MCHC RDW Plt Count pCO2 pO2 42 HCO3 ABG pH ABG Total CO2 ABG O2 Saturation ABG Base Excess ABG Potassium VBG pH 7.41 VBG pCO2 56 VBG HCO3 31.3 VBG Total CO2 37.2 H VBG O2 Sat (Calc) 79.7 H VBG Base Excess 8.9 H VBG Potassium 3.7 A-a O2 Difference Sodium 136.0 Glucose 107 Lactate 0.8 Vent Mode Mechanical Rate FiO2 40.0 Tidal Volume PEEP 5 Potassium Chloride 102.0 Carbon Dioxide Anion Gap BUN Creatinine Est GFR ( Amer) Est GFR (Non-Af Amer) POC Glucose (mg/dL) 105 144 H Random Glucose Calcium Total Bilirubin AST ALT Alkaline Phosphatase NT-Pro-B Natriuret Pep Total Protein Albumin Globulin Albumin/Globulin Ratio Arterial Blood Potassium Venous Blood Potassium 3.7 Fingerstick Blood Sugar Results: 105
--- NOTE | 2017-09-21 12:54 | RAD ---
PROCEDURE: CHEST RADIOGRAPH, 1 VIEW HISTORY: CHF COMPARISON: 09/20/2017 FINDINGS: LUNGS: Decreased opacity in both upper lobes compared to prior examination. Persistent patchy opacity at right base. Possible resolving pulmonary edema. Follow-up advised. PLEURA: No pneumothorax or pleural fluid seen. CARDIOVASCULAR: Normal heart size. ET tube unchanged. NG tube now present extending to left upper quadrant of abdomen. OSSEOUS STRUCTURES: No significant abnormalities. VISUALIZED UPPER ABDOMEN: Normal. OTHER FINDINGS: None. IMPRESSION: Resolving bilateral opacities with some persistent opacity at right base. Recommend follow-up. New NG tube in grossly appropriate position. Possible resolving pulmonary edema.
--- NOTE | 2017-09-21 16:52 | CP.PCM.PN ---
Subjective - Date & Time of Evaluation Date of Evaluation: 09/21/17 Time of Evaluation: 16:35 - Subjective Subjective: Pt just came back from [facility] s/p Cardiac cath Pt still sedated however opens eyes to verbal stimuli Pt is intubated on Mech Vent Still on Milrinone drip and Precedex Objective - Vital Signs/Intake and Output Vital Signs (last 24 hours): Temp Pulse Resp BP Pulse Ox 97.3 F L 80 16 103/68 99 09/21/17 16:00 09/21/17 16:00 09/21/17 16:00 09/21/17 16:00 09/21/17 16:00 Intake and Output: 09/21/17 09/21/17 06:59 18:59 Intake Total 1025 495 Output Total 2000 200 Balance -975 295 - Medications Medications: Current Medications Acetaminophen (Tylenol 650mg/20.3ml Solution Ud) 975 mg NG Q6 PRN PRN Reason: Rigors Albuterol/Ipratropium (Duoneb 3 Mg/0.5 Mg (3 Ml) Ud) 3 ml INH RQ4 TIMUR Last Admin: 09/21/17 15:25 Dose: 3 ml Artificial Tears (Lacri-Lube) 1 applic OU HS TIMUR Last Admin: 09/20/17 22:00 Dose: 1 applic Dextrose (Dextrose 50% Inj) 0 ml IV STAT PRN; Protocol PRN Reason: Hypoglycemia Protocol Furosemide (Lasix) 40 mg IV Q12H TIMUR Last Admin: 09/21/17 10:56 Dose: Not Given Clindamycin Phosphate 600 mg/ (Dextrose) 54 mls @ 54 mls/hr IVPB Q8 TIMUR PRN Reason: Protocol Last Admin: 09/21/17 10:53 Dose: 54 mls/hr Milrinone Lactate/Dextrose (Primacor 20mg/100ml D5w) 100 mls @ 8.522 mls/hr IV .[id number] TIMUR; 0.375 MCG/KG/MIN PRN Reason: Protocol Last Admin: 09/21/17 08:12 Dose: 0.525 mcg/kg/min, 11.931 mls/hr Pantoprazole Sodium (Protonix Inj) 40 mg IVP DAILY TIMUR Last Admin: 09/21/17 10:44 Dose: 40 mg - Labs Labs: 09/21/17 04:20 09/21/17 04:20 PT 17.4 Seconds (9.8-13.1) H 09/18/17 02:25 INR 1.6 (0.9-1.2) H 09/18/17 02:25 - Constitutional Appears: No Acute Distress, Other (oIntubated on Mech Vent) - Head Exam Head Exam: NORMAL INSPECTION, NORMOCEPHALIC - Eye Exam Eye Exam: PERRL - ENT Exam ENT Exam: Mucous Membranes Dry, Normal External Ear Exam - Neck Exam Neck Exam: absent: Meningismus - Respiratory Exam Respiratory Exam: Rales, Rhonchi. absent: Wheezes Additional comments: On mech Vent - Cardiovascular Exam Cardiovascular Exam: REGULAR RHYTHM, +S1, +S2 - GI/Abdominal Exam GI & Abdominal Exam: Soft, Normal Bowel Sounds Additional comments: + NGT - Extremities Exam Extremities Exam: Normal Capillary Refill, Pedal Edema - Neurological Exam Additional comments: lethargic noted to move extremities - Skin Skin Exam: Dry, Normal Color, Warm Assessment and Plan - Assessment and Plan (Free Text) Assessment: 57 year old male with unknown past medical history was seen in the emergency department 09/15 for testicular pain, and was discharged. He was then brought by police for medical and psychiatric clearance prior to incarceration. Patient was sedated with haldol and Ativan because he was very agitated and aggressive towards staff . He was noted to have lower extremity edema,+Cough, no sputum, Afebrile, no WBC, however BNP 8K and CXR showed vascular congestion and questionable RLL infiltrates. Mild crackles on exam noted , no dyspnea. He was Gently diuresed, and empirically started on IV antibiotics for CAP. Overnight went into respiratory failure with suspicious aspiration ( pooling of secretions ) that followed by asystole,coded for 11 minutes , intubated, central line placed and started on Levophed .Large amount of secretions with mucus and saliva noted during intubation . Started on hypothermia protocol initially and discontinued since patient became responsive. Echo showed very poor cardiac function with EF < 10 % Cardiology consulted and patient started on Dobutamine drip Ct chest and CXR showed bilateral vascular congestion suspicious for ARDS 09/21 : At present intubated , responsive , On Milrinone drip. he just got back from [facility] for Cardiac cath 1. Acute respiratory failure secondary to CHF exacerbation leading to respiratory arrest and cardiac arrest intubated on MV PRVC AV mode. failing weaning trials Continue vent management, diuretics IV antibiotics for possible aspiration pneumonia 2. Cardiogenic Shock/ CHF exacerbation echo showed EF < 10 % with hypokinesis and parodoxal septal motion Cardiology consulted and case discussed with Dr. Negrete- pt went for Right and Left Cardiac cath today : EF =10% , will discuss result with Dr negrete cont Milrinone drip BNp trending down from [id number] -- [id number] 3. Suspected aspiration Pneumonia started clindamycin Respiratory toilet with frequent suctioning Keep HOB elevated Follow up respiratory cultures 4.Anemia Most likely chronic Hgb 9.2 5. Transaminitis most likely secondary to passive liver congestion Continue monitoring 6. Hypoglycemia resolved started Tube feeding 7.VTE lovenox
[2017-09-21] MEDS: Dexmedetomidine Hydrochloride 400 MCG in Sodium Chloride 0.9% 96 ML IV ONE (21:13)
[2017-09-21] MEDS: Mineral Oil/White Petrolatum Ophth Oint OU SCH (21:17)
[2017-09-22] MEDS: Milrinone 20mg/100ml D5W 100 ML IV SCH ×2 (01:58→14:18)
[2017-09-22] MEDS: Albuterol-Ipratrop 3 mg / 0.5 (3 ml) UD INH SCH ×7 (03:31→23:09)
[2017-09-22] MEDS: Dexmedetomidine Hydrochloride 400 MCG in Sodium Chloride 0.9% 96 ML IV ONE (03:45)
[2017-09-22 05:12] LABS: ABG ALLEN TEST YES; ARTERIAL BLOOD GAS HCO3 33.3 mmol/L (21-28); ARTERIAL BLOOD GAS HEMOGLOBIN 9.6 g/dL (11.7-17.4); ARTERIAL BLOOD GAS O2 CAPACITY 13.3 mL/dL (16-24); ARTERIAL BLOOD GAS O2 CONTENT 13.1 ML/dL (15-23); ARTERIAL BLOOD GAS O2 SAT 98.2 % (95-98); ARTERIAL BLOOD GAS PCO2 49 mm/Hg (35-45); ARTERIAL BLOOD GAS PH 7.47 (7.35-7.45); ARTERIAL BLOOD GAS PO2 95 mm/Hg (80-100); ARTERIAL BLOOD GAS TCO2 37.2 mmol/L (22-28)
[2017-09-22 05:28] LABS: HEMOGLOBIN 9.3 g/dL (12.0-18.0); MEAN CELL VOLUME 72.6 fl (80.0-94.0); MEAN CORPUSCULAR HEMOGLOBIN 20.9 pg (27.0-31.0); MEAN CORPUSCULAR HGB CONC 28.8 g/dL (33.0-37.0); RBC 4.45 Mil/uL (4.40-5.90); RED CELL DISTRIBUTION WIDTH 18.5 % (11.5-14.5); WHITE BLOOD COUNT 7.6 K/uL (4.8-10.8)
[2017-09-22 05:30] LABS: ALB/GLOB RATIO 0.7 (1.0-2.1); ALBUMIN 2.6 g/dL (3.5-5.0); ALT/SGPT 44 U/L (21-72); AST/SGOT 39 U/L (17-59); BLOOD UREA NITROGEN 20 mg/dl (9-20); CALCIUM 7.9 mg/dL (8.4-10.2); GFR AFRICAN-AMERICAN > 60; GFR NON-AFRICAN AMERICAN > 60
--- NOTE | 2017-09-22 07:50 | RAD ---
HISTORY: vented COMPARISON: Portable chest 09/21/2017. FINDINGS: Endotracheal tube is unchanged in position with nasogastric tube advanced further into the stomach. The tip appears to terminate at the right upper quadrant abdomen. LUNGS: There is no interval change in limited patchy density at the right base with only trace right perihilar residual patchy density remaining. Trace residual patchy density remains at the mid left lung zone laterally. PLEURA: No right pleural effusion or pneumothorax bilaterally. Trace left pleural fluid in question. CARDIOVASCULAR: Cardiomediastinal silhouette appears stable. OSSEOUS STRUCTURES: No significant abnormalities. VISUALIZED UPPER ABDOMEN: Normal. OTHER FINDINGS: None. IMPRESSION: Stable limited bilateral airspace disease as discussed above with trace left pleural effusion evident. Nasogastric tube now appears advanced further into the stomach.
[2017-09-22] MEDS: Enoxaparin 40 mg Syringe SC SCH (08:44)
--- NOTE | 2017-09-22 09:41 | CP.CCUPN ---
CCU Subjective - Physician Review Subjective (Free Text): Awake and interactive to verbal commands as he remains on Precedex sedation. Breathing 16 on AC 12, 450ml TV 40% O2 and PEEP 5. Underwent cardiac cath yesterday, mild LAD stenosis, no stent placed, LVEF confirmed to be 10%. Other VS and I/Os reviewed. He is neg 0.36 L fluid balance. ROS: No other pertinent negs or positives on 10+ system review obtainable due to present sedation and intubated state. PMSFH: All other Nursing and physician documentation reviewed to date; no new pertinent info noted relevant to current medical problems. EXAM- HEENT: no icterus, no gaze preference, pupils 2 mm equal and sluggishly reactive , no icterus NECK: No JVD, supple, carotids equal upstroke bilat/no bruits CHEST: decreased BS bases, no wheezes audible HEART: regular distant, tachy S1S2, no rubs. ABD: soft, no distention, no tympany, no palp tenderness, BS hypoactive. EXT: trace edema / anasarca bilat. No peripheral/ digital cyanosis, no calf tenderness or palpable cords, distal pulses intact and symmetrical. NEURO: diminished tone all extremities SKIN: no rashes, warm and dry. LABS: WBC= 7.6 HGB= 9.3 PLTs= 255 K 7.47/49/95 on 40% oxygen. Na= 139 K= 3.6 HCO3= 37 CL= 95 BUN/Cr= 20/0.8 BS= 121 CXR: ETT position OK above niya, gastric tube appears lower, in proximal gastric area today, no new consolidation (my interp). IMPRESSION / MAJOR PROBLEMS NOW: 1. Acute Hypoxemic Resp Failure with Resp Arrest 2 Aspiration event ( oropharyngeal pooling noted, required suctioning prior to and during intubation ) 2. Secondary Cardiac Arrest from congestive Cardiomyopathy 3. Anoxic encephalopathy, r/o other Toxic-Metabolic Encephalopathy 4. Azotemia, r/o ANTON / ATN with mild Hyperkalemia PLAN: 1. Try SBT today. 2. Lasix at BID dosing. 3. Milrinone support as per Cardio. Yesterdays mixed venous SvO2 appears acceptable as well as normalization of lactates. 4. Empiric Abx coverage, check routine PCT level. 5. CT Brain results reviewed, no significant severe anoxic encephalopathic changes. 6. Check repeat coags. CCU Objective - Vital Signs / Intake & Output Vital Signs (Last 4 hours): Vital Signs Temp Pulse Resp BP Pulse Ox 09/22/17 09:00 98/61 L 09/22/17 08:00 98.3 F 79 16 91/60 L 98 09/22/17 07:00 78 17 95/61 L 100 09/22/17 06:00 79 18 101/64 99 Intake and Output (Last 8hrs): Intake & Output 09/21/17 09/22/17 09/22/17 22:59 06:59 14:59 Intake Total 505 690 Output Total 400 1450 Balance 105 -760 Weight 164 lb 6.4 oz Intake: IV 240 200 Intake, Piggyback 50 Tube Feeding 165 440 Free Water Flush 100 Output: Urine 400 1450 Urethral (Mendiola) 400 1450 - Physical Exam Head: Positive for: Atraumatic, Normocephalic Pupils: Positive for: Sluggish Conjunctiva: Positive for: Normal Mouth: Positive for: Moist Mucous Membranes Respiratory/Chest: Positive for: Clear to Auscultation Cardiovascular: Positive for: Regular Rate and Rhythm Abdomen: Positive for: Normal Bowel Sounds. Negative for: Tenderness, Distention Neurological: Positive for: Other (sedated) - Medications Active Medications: Active Medications Generic Name Dose Route Start Last Admin Trade Name Freq PRN Reason Stop Dose Admin Acetaminophen 975 mg 09/18/17 02:30 Tylenol 650mg/20.3ml Solution Ud NG Q6 PRN Rigors Albuterol/Ipratropium 3 ml 09/18/17 12:00 09/22/17 08:09 Duoneb 3 Mg/0.5 Mg (3 Ml) Ud INH 3 ml RQ4 TIMUR Administration Artificial Tears 1 applic 09/18/17 22:00 09/21/17 21:17 Lacri-Lube OU 1 applic HS TIMUR Administration Dextrose 0 ml 09/18/17 05:13 Dextrose 50% Inj IV STAT PRN Hypoglycemia Protocol Protocol Enoxaparin Sodium 40 mg 09/22/17 09:00 09/22/17 08:44 Lovenox SC 40 mg DAILY TIMUR Administration Protocol Furosemide 40 mg 09/20/17 10:00 09/22/17 09:00 Lasix IV 40 mg Q12H TIMUR Administration Clindamycin Phosphate 600 mg/ 54 mls @ 54 mls/hr 09/19/17 19:30 09/22/17 08: 42 Dextrose IVPB 54 mls/hr Q8 TIMUR Administration Protocol Milrinone Lactate/Dextrose 100 mls @ 8.522 mls/hr 09/20/17 12:00 09/22/17 01: 58 Primacor 20mg/100ml D5w IV 0.525 mcg/kg/min .[id number] TIMUR 11.931 mls/hr Protocol Administration 0.375 MCG/KG/MIN Dexmedetomidine HCl 400 mcg/ 100 mls @ 3.81 mls/hr 09/21/17 21:00 09/22/17 03 :45 Sodium Chloride IV 09/22/17 20:59 0.4 mcg/kg/hr .Q24H ONE 7.62 mls/hr Protocol Administration 0.2 MCG/KG/HR Pantoprazole Sodium 40 mg 09/18/17 09:00 09/22/17 08:45 Protonix Inj IVP 40 mg DAILY TIMUR Administration - Patient Studies Lab Studies: Lab Studies 09/22/17 09/22/17 09/22/17 Range/Units 05:08 04:38 04:20 WBC (4.8-10.8) K/uL RBC (4.40-5.90) Mil/uL Hgb (12.0-18.0) g/dL Hct (35.0-51.0) % MCV (80.0-94.0) fl MCH (27.0-31.0) pg MCHC (33.0-37.0) g/dL RDW (11.5-14.5) % Plt Count (130-400) K/uL pCO2 49 H (35-45) mm/Hg pO2 95 (30-55) mm/Hg HCO3 33.3 H (21-28) mmol/L ABG pH 7.47 H (7.35-7.45) ABG Total CO2 37.2 H (22-28) mmol/L ABG O2 Saturation 98.2 H (95-98) % ABG O2 Content 13.1 L (15-23) ML/dL ABG Base Excess 10.7 H (-2.0-3.0) mmol/L ABG Hemoglobin 9.6 L (11.7-17.4) g/dL ABG Carboxyhemoglobin 1.2 (0.5-1.5) % POC ABG HHb (Measured) 1.8 (0.0-5.0) % ABG Methemoglobin 0.7 (0.0-3.0) % ABG O2 Capacity 13.3 L (16-24) mL/dL Cecilio Test Yes VBG pH (7.32-7.43) VBG pCO2 (40-60) mmHg VBG HCO3 mmol/L VBG Total CO2 (22-28) mmol/L VBG O2 Sat (Calc) (40-65) % VBG Base Excess (0.0-2.0) mmol/L VBG Potassium (3.6-5.2) mmol/L A-a O2 Difference 129.0 mm/Hg Hgb O2 Saturation 96.3 (95.0-98.0) % Sodium 139 (132-148) mmol/L Chloride 95 L (98-107) mmol/L Glucose (75-110) mg/dL Lactate (0.7-2.1) mmol/L Vent Mode A/c Mechanical Rate 12 FiO2 40.0 % Tidal Volume 450 PEEP 5 Potassium 3.6 (3.6-5.0) MMOL/L Carbon Dioxide 37 H (22-30) mmol/L Anion Gap 11 (10-20) BUN 20 (9-20) mg/dl Creatinine 0.8 (0.8-1.5) mg/dl Est GFR ( Amer) > 60 Est GFR (Non-Af Amer) > 60 POC Glucose (mg/dL) 140 H (65-110) mg/dL Random Glucose 121 H (75-110) mg/dL Calcium 7.9 L (8.4-10.2) mg/dL Total Bilirubin 0.5 (0.2-1.3) mg/dl AST 39 (17-59) U/L ALT 44 (21-72) U/L Alkaline Phosphatase 148 H (38-126) U/L Total Protein 6.6 (6.3-8.2) G/DL Albumin 2.6 L (3.5-5.0) g/dL Globulin 4.0 H (2.2-3.9) gm/dL Albumin/Globulin Ratio 0.7 L (1.0-2.1) Venous Blood Potassium (3.6-5.2) mmol/L 04/13/18 04/12/18 04/12/18 Range/Units 04:20 21:04 17:10 WBC 7.6 (4.8-10.8) K/uL RBC 4.45 (4.40-5.90) Mil/uL Hgb 9.3 L (12.0-18.0) g/dL Hct 32.3 L (35.0-51.0) % MCV 72.6 L (80.0-94.0) fl MCH 20.9 L (27.0-31.0) pg MCHC 28.8 L (33.0-37.0) g/dL RDW 18.5 H (11.5-14.5) % Plt Count 255 (130-400) K/uL pCO2 (35-45) mm/Hg pO2 (30-55) mm/Hg HCO3 (21-28) mmol/L ABG pH (7.35-7.45) ABG Total CO2 (22-28) mmol/L ABG O2 Saturation (95-98) % ABG O2 Content (15-23) ML/dL ABG Base Excess (-2.0-3.0) mmol/L ABG Hemoglobin (11.7-17.4) g/dL ABG Carboxyhemoglobin (0.5-1.5) % POC ABG HHb (Measured) (0.0-5.0) % ABG Methemoglobin (0.0-3.0) % ABG O2 Capacity (16-24) mL/dL Cecilio Test VBG pH (7.32-7.43) VBG pCO2 (40-60) mmHg VBG HCO3 mmol/L VBG Total CO2 (22-28) mmol/L VBG O2 Sat (Calc) (40-65) % VBG Base Excess (0.0-2.0) mmol/L VBG Potassium (3.6-5.2) mmol/L A-a O2 Difference mm/Hg Hgb O2 Saturation (95.0-98.0) % Sodium (132-148) mmol/L Chloride (98-107) mmol/L Glucose (75-110) mg/dL Lactate (0.7-2.1) mmol/L Vent Mode Mechanical Rate FiO2 % Tidal Volume PEEP Potassium (3.6-5.0) MMOL/L Carbon Dioxide (22-30) mmol/L Anion Gap (10-20) BUN (9-20) mg/dl Creatinine (0.8-1.5) mg/dl Est GFR ( Amer) Est GFR (Non-Af Amer) POC Glucose (mg/dL) 119 H 107 (65-110) mg/dL Random Glucose (75-110) mg/dL Calcium (8.4-10.2) mg/dL Total Bilirubin (0.2-1.3) mg/dl AST (17-59) U/L ALT (21-72) U/L Alkaline Phosphatase (38-126) U/L Total Protein (6.3-8.2) G/DL Albumin (3.5-5.0) g/dL Globulin (2.2-3.9) gm/dL Albumin/Globulin Ratio (1.0-2.1) Venous Blood Potassium (3.6-5.2) mmol/L 09/21/17 09/21/17 Range/Units 11:38 09:41 WBC (4.8-10.8) K/uL RBC (4.40-5.90) Mil/uL Hgb (12.0-18.0) g/dL Hct (35.0-51.0) % MCV (80.0-94.0) fl MCH (27.0-31.0) pg MCHC (33.0-37.0) g/dL RDW (11.5-14.5) % Plt Count (130-400) K/uL pCO2 (35-45) mm/Hg pO2 42 (30-55) mm/Hg HCO3 (21-28) mmol/L ABG pH (7.35-7.45) ABG Total CO2 (22-28) mmol/L ABG O2 Saturation (95-98) % ABG O2 Content (15-23) ML/dL ABG Base Excess (-2.0-3.0) mmol/L ABG Hemoglobin (11.7-17.4) g/dL ABG Carboxyhemoglobin (0.5-1.5) % POC ABG HHb (Measured) (0.0-5.0) % ABG Methemoglobin (0.0-3.0) % ABG O2 Capacity (16-24) mL/dL Cecilio Test VBG pH 7.41 (7.32-7.43) VBG pCO2 56 (40-60) mmHg VBG HCO3 31.3 mmol/L VBG Total CO2 37.2 H (22-28) mmol/L VBG O2 Sat (Calc) 79.7 H (40-65) % VBG Base Excess 8.9 H (0.0-2.0) mmol/L VBG Potassium 3.7 (3.6-5.2) mmol/L A-a O2 Difference mm/Hg Hgb O2 Saturation (95.0-98.0) % Sodium 136.0 (132-148) mmol/L Chloride 102.0 (98-107) mmol/L Glucose 107 (75-110) mg/dL Lactate 0.8 (0.7-2.1) mmol/L Vent Mode Mechanical Rate FiO2 40.0 % Tidal Volume PEEP 5 Potassium (3.6-5.0) MMOL/L Carbon Dioxide (22-30) mmol/L Anion Gap (10-20) BUN (9-20) mg/dl Creatinine (0.8-1.5) mg/dl Est GFR ( Amer) Est GFR (Non-Af Amer) POC Glucose (mg/dL) 144 H (65-110) mg/dL Random Glucose (75-110) mg/dL Calcium (8.4-10.2) mg/dL Total Bilirubin (0.2-1.3) mg/dl AST (17-59) U/L ALT (21-72) U/L Alkaline Phosphatase (38-126) U/L Total Protein (6.3-8.2) G/DL Albumin (3.5-5.0) g/dL Globulin (2.2-3.9) gm/dL Albumin/Globulin Ratio (1.0-2.1) Venous Blood Potassium 3.7 (3.6-5.2) mmol/L Laboratory Results - last 24 hr 09/21/17 09/21/17 09/21/17 09:41 11:38 17:10 WBC RBC Hgb Hct MCV MCH MCHC RDW Plt Count pCO2 pO2 42 HCO3 ABG pH ABG Total CO2 ABG O2 Saturation ABG O2 Content ABG Base Excess ABG Hemoglobin ABG Carboxyhemoglobin POC ABG HHb (Measured) ABG Methemoglobin ABG O2 Capacity Cecilio Test VBG pH 7.41 VBG pCO2 56 VBG HCO3 31.3 VBG Total CO2 37.2 H VBG O2 Sat (Calc) 79.7 H VBG Base Excess 8.9 H VBG Potassium 3.7 A-a O2 Difference Hgb O2 Saturation Sodium 136.0 Chloride 102.0 Glucose 107 Lactate 0.8 Vent Mode Mechanical Rate FiO2 40.0 Tidal Volume PEEP 5 Potassium Carbon Dioxide Anion Gap BUN Creatinine Est GFR ( Amer) Est GFR (Non-Af Amer) POC Glucose (mg/dL) 144 H 107 Random Glucose Calcium Total Bilirubin AST ALT Alkaline Phosphatase Total Protein Albumin Globulin Albumin/Globulin Ratio Venous Blood Potassium 3.7 09/21/17 09/22/17 09/22/17 21:04 04:20 04:20 WBC 7.6 RBC 4.45 Hgb 9.3 L Hct 32.3 L MCV 72.6 L MCH 20.9 L MCHC 28.8 L RDW 18.5 H Plt Count 255 pCO2 pO2 HCO3 ABG pH ABG Total CO2 ABG O2 Saturation ABG O2 Content ABG Base Excess ABG Hemoglobin ABG Carboxyhemoglobin POC ABG HHb (Measured) ABG Methemoglobin ABG O2 Capacity Cecilio Test VBG pH VBG pCO2 VBG HCO3 VBG Total CO2 VBG O2 Sat (Calc) VBG Base Excess VBG Potassium A-a O2 Difference Hgb O2 Saturation Sodium 139 Chloride 95 L Glucose Lactate Vent Mode Mechanical Rate FiO2 Tidal Volume PEEP Potassium 3.6 Carbon Dioxide 37 H Anion Gap 11 BUN 20 Creatinine 0.8 Est GFR ( Amer) > 60 Est GFR (Non-Af Amer) > 60 POC Glucose (mg/dL) 119 H Random Glucose 121 H Calcium 7.9 L Total Bilirubin 0.5 AST 39 ALT 44 Alkaline Phosphatase 148 H Total Protein 6.6 Albumin 2.6 L Globulin 4.0 H Albumin/Globulin Ratio 0.7 L Venous Blood Potassium 09/22/17 09/22/17 04:38 05:08 WBC RBC Hgb Hct MCV MCH MCHC RDW Plt Count pCO2 49 H pO2 95 HCO3 33.3 H ABG pH 7.47 H ABG Total CO2 37.2 H ABG O2 Saturation 98.2 H ABG O2 Content 13.1 L ABG Base Excess 10.7 H ABG Hemoglobin 9.6 L ABG Carboxyhemoglobin 1.2 POC ABG HHb (Measured) 1.8 ABG Methemoglobin 0.7 ABG O2 Capacity 13.3 L Cecilio Test Yes VBG pH VBG pCO2 VBG HCO3 VBG Total CO2 VBG O2 Sat (Calc) VBG Base Excess VBG Potassium A-a O2 Difference 129.0 Hgb O2 Saturation 96.3 Sodium Chloride Glucose Lactate Vent Mode A/c Mechanical Rate 12 FiO2 40.0 Tidal Volume 450 PEEP 5 Potassium Carbon Dioxide Anion Gap BUN Creatinine Est GFR ( Amer) Est GFR (Non-Af Amer) POC Glucose (mg/dL) 140 H Random Glucose Calcium Total Bilirubin AST ALT Alkaline Phosphatase Total Protein Albumin Globulin Albumin/Globulin Ratio Venous Blood Potassium Fingerstick Blood Sugar Results: 140
--- NOTE | 2017-09-22 13:25 | CP.PCM.PN ---
Subjective - Date & Time of Evaluation Date of Evaluation: 09/22/17 Time of Evaluation: 13:00 - Subjective Subjective: Pt is uncooperative refused to be fully examined He was just extubated - asking for food refused to keep his Oxygen on does not want to answer my questions - states that he wants to go home and to call his sister. Objective - Vital Signs/Intake and Output Vital Signs (last 24 hours): Temp Pulse Resp BP Pulse Ox 98.8 F 98 H 39 H 102/68 100 09/22/17 12:00 09/22/17 12:00 09/22/17 12:00 09/22/17 12:00 09/22/17 12:00 Intake and Output: 09/22/17 09/22/17 06:59 18:59 Intake Total 955 300 Output Total 1450 Balance -495 300 - Medications Medications: Current Medications Acetaminophen (Tylenol 650mg/20.3ml Solution Ud) 975 mg NG Q6 PRN PRN Reason: Rigors Albuterol/Ipratropium (Duoneb 3 Mg/0.5 Mg (3 Ml) Ud) 3 ml INH RQ4 TIMUR Last Admin: 09/22/17 11:17 Dose: 3 ml Artificial Tears (Lacri-Lube) 1 applic OU HS TIMUR Last Admin: 09/21/17 21:17 Dose: 1 applic Dextrose (Dextrose 50% Inj) 0 ml IV STAT PRN; Protocol PRN Reason: Hypoglycemia Protocol Enoxaparin Sodium (Lovenox) 40 mg SC DAILY TIMUR PRN Reason: Protocol Last Admin: 09/22/17 08:44 Dose: 40 mg Furosemide (Lasix) 40 mg IV Q12H TIMUR Last Admin: 09/22/17 09:00 Dose: 40 mg Milrinone Lactate/Dextrose (Primacor 20mg/100ml D5w) 100 mls @ 8.522 mls/hr IV .[id number] TIMUR; 0.375 MCG/KG/MIN PRN Reason: Protocol Last Admin: 09/22/17 01:58 Dose: 0.525 mcg/kg/min, 11.931 mls/hr Clindamycin Phosphate (Cleocin) 600 mg in 50 mls @ 50 mls/hr IVPB Q8 TIMUR PRN Reason: Protocol Pantoprazole Sodium (Protonix Inj) 40 mg IVP DAILY TIMUR Last Admin: 09/22/17 08:45 Dose: 40 mg - Labs Labs: 09/22/17 04:20 09/22/17 04:20 PT 17.4 Seconds (9.8-13.1) H 09/18/17 02:25 INR 1.6 (0.9-1.2) H 09/18/17 02:25 - Constitutional Appears: Older Than Stated Age, Chronically Ill, Other (uncooperative , pt now extubated) - Head Exam Head Exam: NORMAL INSPECTION, NORMOCEPHALIC - Eye Exam Eye Exam: EOMI, Normal appearance Pupil Exam: NORMAL ACCOMODATION - ENT Exam ENT Exam: Mucous Membranes Moist, Normal External Ear Exam Additional comments: poor dentition - Neck Exam Neck Exam: Full ROM. absent: Meningismus - Respiratory Exam Respiratory Exam: Rales, Rhonchi, NORMAL BREATHING PATTERN. absent: Respiratory Distress Additional comments: extubated - Cardiovascular Exam Cardiovascular Exam: REGULAR RHYTHM, +S1, +S2 - GI/Abdominal Exam GI & Abdominal Exam: Soft, Normal Bowel Sounds. absent: Tenderness - Extremities Exam Extremities Exam: absent: Pedal Edema - Neurological Exam Neurological Exam: Alert, Awake Additional comments: oriented to person - Psychiatric Exam Additional comments: uncooperative - Skin Skin Exam: Dry, Normal Color, Warm Assessment and Plan - Assessment and Plan (Free Text) Assessment: 57 year old male with unknown past medical history was seen in the emergency department 09/15 for testicular pain, and was discharged. He was then brought by police for medical and psychiatric clearance prior to incarceration. Patient was sedated with haldol and Ativan because he was very agitated and aggressive towards staff . He was noted to have lower extremity edema, +Cough, no sputum, Afebrile, no WBC, however BNP 8K and CXR showed vascular congestion and questionable RLL infiltrates. Mild crackles on exam noted , no dyspnea. He was Gently diuresed, and empirically started on IV antibiotics for CAP. Overnight went into respiratory failure with suspicious aspiration ( pooling of secretions ) that followed by asystole,coded for 11 minutes , intubated, central line placed and started on Levophed .Large amount of secretions with mucus and saliva noted during intubation . Started on hypothermia protocol initially and discontinued since patient became responsive. Echo showed very poor cardiac function with EF < 10 % Cardiology consulted and patient started on Dobutamine drip Ct chest and CXR showed bilateral vascular congestion suspicious for ARDS 09/21: Cardiac cath at [facility] : Moderate RCA dis, 10 % EF, Low Cardiac output 09/22 : Extubated today , On Milrinone drip. 1. Acute respiratory failure secondary to CHF exacerbation leading to respiratory arrest and cardiac arrest Pt just got extubated today, refusing to put on his Oxygen Continue diuretics IV antibiotics for possible aspiration pneumonia 2. Cardiogenic Shock/ CHF exacerbation echo showed EF < 10 % with hypokinesis and parodoxal septal motion Cardiology consulted and case discussed with Dr. Cook- pt went for Right and Left Cardiac cath yesterday : EF =10% , mod RCA dis, low CO Discussed with Dr Cook , rec to start low dose REN and BB, titrate Milrinone drip slowly cont Milrinone drip BNp [place]ing [place] from [address]15 -- 2460 3. Suspected aspiration Pneumonia cont clindamycin Respiratory toilet with frequent suctioning Trach Asp : normal yanick 4.Anemia Most likely chronic, stable Hgb 9.3 5. Transaminitis most likely secondary to passive liver congestion - now normal Continue monitoring 6. Hypoglycemia resolved restart Po diet 7. History of Schizophrenia Psych consult VTE Proph lovenox
--- NOTE | 2017-09-22 15:45 | CP.CCUPN ---
CCU Subjective - Physician Review Subjective (Free Text): EXTUBATION: Patient tolerated 2 SBTs today , each lasting 30 mins on CPAP 5 PS 12, 40% with no desaturation, except for tachypnea without evidence of fatigue, diaphoresis nor any other abnormal vital signs. Decision made to extubate at this time: Patient extubated without difficulty, ETT removed without complications, voice is audible but hoarse and patient now verbalizing to leave the hospital as he wants to go home, and even requesting to sign out of the hospital. Routine procedure to place on 50% ventimask post-extubation refused by patient, even refusing nasal cannula. Despite agitation,and now incessantly requesting "wanting to go home, best SPO2 on RA noted to be 95-96%. Informed patient of need to possibly re-intubate should his breathing deteriorate further; discussed with him as well and he understood this. Information noted in Summary and Demographics section of enosiX reviewed and calls made to his sister at the listed telephone number which has been discovered to be non-active. Patient unable to provide us with another number, and states he lives at [address] [place] [address]. Patient presently under Police custody for multiple warrants out for his arrest" according to the Police officers present today at the bedside. He is presently cuffed to the bed via his R ankle. Pre-extubation, Precedex discontinued and soft bilateral wrist restraints were removed. Patient tolerated a full course lunch meal without signs of coughing nor aspiration.
[2017-09-22] MEDS: Clindamycin 600mg/50ml D5W 600 MG/50 ML VIAL IVPB SCH (17:45)
[2017-09-22] MEDS: Mineral Oil/White Petrolatum Ophth Oint OU SCH (21:09)
[2017-09-23] MEDS: Clindamycin 600mg/50ml D5W 600 MG/50 ML VIAL IVPB SCH ×3 (00:31→16:32)
[2017-09-23] MEDS: Milrinone 20mg/100ml D5W 100 ML IV SCH ×2 (01:03→12:37)
[2017-09-23] MEDS: Albuterol-Ipratrop 3 mg / 0.5 (3 ml) UD INH SCH ×6 (04:55→23:56)
[2017-09-23 05:43] LABS: HEMOGLOBIN 9.8 g/dL (12.0-18.0); MEAN CELL VOLUME 72.5 fl (80.0-94.0); MEAN CORPUSCULAR HEMOGLOBIN 21.3 pg (27.0-31.0); MEAN CORPUSCULAR HGB CONC 29.4 g/dL (33.0-37.0); RBC 4.61 Mil/uL (4.40-5.90); RED CELL DISTRIBUTION WIDTH 18.2 % (11.5-14.5); WHITE BLOOD COUNT 8.4 K/uL (4.8-10.8)
[2017-09-23 05:54] LABS: B-TYPE NATRIURETIC PEPTIDE 4230 pg/ml (0-900)
[2017-09-23 06:03] LABS: ALB/GLOB RATIO 0.6 (1.0-2.1); ALBUMIN 2.6 g/dL (3.5-5.0); ALT/SGPT 45 U/L (21-72); AST/SGOT 47 U/L (17-59); BLOOD UREA NITROGEN 22 mg/dl (9-20); CALCIUM 8.1 mg/dL (8.4-10.2); GFR AFRICAN-AMERICAN > 60; GFR NON-AFRICAN AMERICAN > 60
--- NOTE | 2017-09-23 08:17 | CP.PCM.PN ---
Subjective - Date & Time of Evaluation Date of Evaluation: 09/23/17 Time of Evaluation: 08:00 - Subjective Subjective: Patient seen and examined bedside.Complains of chest pain. Asking for something to relax him. On milrinone drip Bp stable 137/83 tachycardic HR 101 afebrile RR 34 saturating 99 % on 2 L O2 via [place] No acute issues overnighti/O [id number] WBC 8.4 Hgb 9.8 BNP 4230 Objective - Vital Signs/Intake and Output Vital Signs (last 24 hours): Temp Pulse Resp BP Pulse Ox 98.7 F 101 H 34 H 137/83 99 09/23/17 00:00 09/23/17 06:00 09/23/17 06:00 09/23/17 06:00 09/23/17 06:00 Intake and Output: 09/23/17 09/23/17 06:59 18:59 Intake Total 528 Output Total 500 Balance 28 - Medications Medications: Current Medications Acetaminophen (Tylenol 650mg/20.3ml Solution Ud) 975 mg NG Q6 PRN PRN Reason: Rigors Albuterol/Ipratropium (Duoneb 3 Mg/0.5 Mg (3 Ml) Ud) 3 ml INH RQ4 TIMUR Last Admin: 09/23/17 07:39 Dose: Not Given Artificial Tears (Lacri-Lube) 1 applic OU HS TIMUR Last Admin: 09/22/17 21:09 Dose: 1 applic Carvedilol (Coreg) 3.125 mg PO DAILY [facility] Dextrose (Dextrose 50% Inj) 0 ml IV STAT PRN; Protocol PRN Reason: Hypoglycemia Protocol Enalapril Maleate (Vasotec) 2.5 mg PO DAILY [facility] Last Admin: 09/22/17 18:15 Dose: 2.5 mg Enoxaparin Sodium (Lovenox) 40 mg SC DAILY TIMUR PRN Reason: Protocol Last Admin: 09/22/17 08:44 Dose: 40 mg Furosemide (Lasix) 40 mg IV DAILY [facility] Milrinone Lactate/Dextrose (Primacor 20mg/100ml D5w) 100 mls @ 8.522 mls/hr IV .[id number] TIMUR; 0.375 MCG/KG/MIN PRN Reason: Protocol Last Admin: 09/23/17 01:03 Dose: 0.375 mcg/kg/min, 8.522 mls/hr Clindamycin Phosphate (Cleocin) 600 mg in 50 mls @ 50 mls/hr IVPB Q8 [facility] PRN Reason: Protocol Last Admin: 09/23/17 00:31 Dose: 50 mls/hr Pantoprazole Sodium (Protonix Inj) 40 mg IVP DAILY [facility] Last Admin: 09/22/17 08:45 Dose: 40 mg - Labs Labs: 09/23/17 04:15 09/23/17 04:15 PT 17.4 Seconds (9.8-13.1) H 09/18/17 02:25 INR 1.6 (0.9-1.2) H 09/18/17 02:25 - Constitutional Appears: No Acute Distress, Older Than Stated Age, Chronically Ill - Eye Exam Eye Exam: EOMI, PERRL Pupil Exam: NORMAL ACCOMODATION - ENT Exam ENT Exam: Mucous Membranes Dry, Normal Exam - Neck Exam Neck Exam: Normal Inspection - Respiratory Exam Respiratory Exam: Rales. absent: Wheezes Additional comments: diffuse rales bilaterally - Cardiovascular Exam Cardiovascular Exam: Tachycardia, RRR - GI/Abdominal Exam GI & Abdominal Exam: Soft, Normal Bowel Sounds. absent: Distended, Guarding, Rebound - Rectal Exam Rectal Exam: Deferred - Neurological Exam Neurological Exam: Alert, Awake Additional comments: speech difficult to comprehend bilateral lower extremities with dry callouses to big toes and onychomychosis - Psychiatric Exam Psychiatric exam: Anxious, Flat Affect - Skin Skin Exam: Dry, Normal Color, Warm Assessment and Plan - Assessment and Plan (Free Text) Assessment: 57 year old male with unknown past medical history was seen in the emergency department 09/15 for testicular pain, and was discharged. He was then brought by police for medical and psychiatric clearance prior to incarceration. Patient was sedated with haldol and Ativan because he was very agitated and aggressive towards staff . He was noted to have lower extremity edema, +Cough, no sputum, Afebrile, no WBC, however BNP 8K and CXR showed vascular congestion and questionable RLL infiltrates. Mild crackles on exam noted , no dyspnea. He was Gently diuresed, and empirically started on IV antibiotics for CAP. Overnight went into respiratory failure with suspicious aspiration ( pooling of secretions ) that followed by asystole,coded for 11 minutes , intubated, central line placed and started on Levophed .Large amount of secretions with mucus and saliva noted during intubation . Started on hypothermia protocol initially and discontinued since patient became responsive. Echo showed very poor cardiac function with EF < 10 % Cardiology consulted and patient started on Dobutamine drip CT chest and CXR showed bilateral vascular congestion suspicious for ARDS 09/21: Cardiac cath at [facility] : Moderate RCA disease, 10 % EF, Low Cardiac output Extubated on 09/22 andf tolerating well. Still on Milrinone drip and congested 1. Acute respiratory failure secondary to CHF exacerbation leading to respiratory arrest and cardiac arrest Extubated 09/22 and tolerating well Will give extra dose lasix 40 mg IV today since diffuse rales heard on exam Continue O2 via [place] On IV Clindamycin for possible aspiration pneumonia 2. Cardiogenic Shock/ CHF exacerbation echo showed EF < 10 % with hypokinesis and parodoxal septal motion Cardiology consulted and case discussed with Dr. Cook- pt went for Right and Left Cardiac cath that showed EF =10% , mod RCA dis, low CO Will titrate Milrinone slowly Started Enalapril and Coreg PO . Will titrate dose up slowly if tolerated by BP continue Lasix IV 3. Suspected aspiration Pneumonia cont clindamycin O2 via [place] Respiratory toilet with faspiratoion precautions 4.Anemia Most likely chronic, stable Hgb 9.8 5. Transaminitis most likely secondary to passive liver congestion - now normal Continue monitoring 6. Hypoglycemia resolved restarted Po diet D/c accuchecks 7. History of Schizophrenia Psych consult 8.VTE Proph lovenox
[2017-09-23] MEDS: Enoxaparin 40 mg Syringe SC SCH (09:17)
--- NOTE | 2017-09-23 14:48 | CP.PCM.CON ---
History of Present Illness - History of Present Illness History of Present Illness: 57 year old avelino was seen in the emergency department for testicular pain, and was discharged. He was also noted to have lower extremity edema. pt has history of schizophrenia and substance use , pt reported being last at [facility],apparently non compliant with medication as per staff report pt is currently under arrest, on evaluation , pt presenting with concrete thought process and underproductive speech, pt however denied any current symptoms of depression, no changes in sleep or appetite no manic symptoms, denied any current psychotic symptoms, denied suicidal or homicidal ideations Past Patient History - Tetanus Immunizations Tetanus Immunization: Unknown - Past Medical History & Family History Past Medical History?: Yes - Past Social History Smoking Status: Light Smoker < 10 Cigarettes Daily - CARDIAC Hx Cardiac Disorders: Yes Hx Hypertension: Yes - PULMONARY Hx Respiratory Disorders: No Hx Tuberculosis: No - NEUROLOGICAL Hx Neurological Disorder: No - HEENT Hx HEENT Problems: No - RENAL Hx Chronic Kidney Disease: No - ENDOCRINE/METABOLIC Hx Endocrine Disorders: No - HEMATOLOGICAL/ONCOLOGICAL Hx Blood Disorders: No Hx Human Immunodeficiency Virus (HIV): No - INTEGUMENTARY Hx Dermatological Problems: No - MUSCULOSKELETAL/RHEUMATOLOGICAL Hx Musculoskeletal Disorders: No Hx Falls: No - GASTROINTESTINAL Hx Gastrointestinal Disorders: No - GENITOURINARY/GYNECOLOGICAL Hx Genitourinary Disorders: No Hx Sexually Transmitted Disorders: No - PSYCHIATRIC Hx Psychophysiologic Disorder: Yes Hx Schizophrenia: Yes Hx Substance Use: No (DENIES) - SURGICAL HISTORY Hx Surgeries: No - ANESTHESIA Hx Anesthesia: No Hx Anesthesia Reactions: No Hx Malignant Hyperthermia: No Meds Allergies/Adverse Reactions: Allergies Allergy/AdvReac Type Severity Reaction Status Date / Time Penicillins Allergy RASH Verified 09/15/17 20:25 - Medications Medications: Current Medications Acetaminophen (Tylenol 650mg/20.3ml Solution Ud) 975 mg NG Q6 PRN PRN Reason: Rigors Albuterol/Ipratropium (Duoneb 3 Mg/0.5 Mg (3 Ml) Ud) 3 ml INH RQ4 [facility] Last Admin: 09/23/17 11:00 Dose: Not Given Artificial Tears (Lacri-Lube) 1 applic OU HS [facility] Last Admin: 09/22/17 21:09 Dose: 1 applic Carvedilol (Coreg) 3.125 mg PO DAILY [facility] Dextrose (Dextrose 50% Inj) 0 ml IV STAT PRN; Protocol PRN Reason: Hypoglycemia Protocol Enalapril Maleate (Vasotec) 2.5 mg PO DAILY [facility] Last Admin: 09/23/17 09:18 Dose: 2.5 mg Enoxaparin Sodium (Lovenox) 40 mg SC DAILY [facility] PRN Reason: Protocol Last Admin: 09/23/17 09:17 Dose: 40 mg Furosemide (Lasix) 40 mg IV DAILY [facility] Last Admin: 09/23/17 09:17 Dose: Not Given Milrinone Lactate/Dextrose (Primacor 20mg/100ml D5w) 100 mls @ 8.522 mls/hr IV .[id number] [facility]; 0.375 MCG/KG/MIN PRN Reason: Protocol Last Admin: 09/23/17 12:37 Dose: 0.375 mcg/kg/min, 8.522 mls/hr Clindamycin Phosphate (Cleocin) 600 mg in 50 mls @ 50 mls/hr IVPB Q8 [facility] PRN Reason: Protocol Last Admin: 09/23/17 09:15 Dose: 50 mls/hr Pantoprazole Sodium (Protonix Inj) 40 mg IVP DAILY [facility] Last Admin: 09/23/17 09:18 Dose: 40 mg Physical Exam - Psychiatric Exam Additional comments: patient seen in bed , calm cooperative, underproductive speech, concrete thought process, denied any current perceptual disturbances, non elicited denie suicidal or homicidal ideations Results - Vital Signs Recent Vital Signs: Last Vital Signs Temp 98.2 F 09/23/17 12:00 Pulse 110 H 09/23/17 14:00 Resp 25 H 09/23/17 14:00 BP 125/77 09/23/17 14:00 Pulse Ox 100 09/23/17 13:00 - Labs Result Diagrams: 09/23/17 04:15 09/23/17 04:15 Labs: Laboratory Results - last 24 hr 09/22/17 09/22/17 09/23/17 17:03 20:15 03:59 WBC RBC Hgb Hct MCV MCH MCHC RDW Plt Count Sodium Potassium Chloride Carbon Dioxide Anion Gap BUN Creatinine Est GFR ( Amer) Est GFR (Non-Af Amer) POC Glucose (mg/dL) 85 106 100 Random Glucose Calcium Total Bilirubin AST ALT Alkaline Phosphatase NT-Pro-B Natriuret Pep Total Protein Albumin Globulin Albumin/Globulin Ratio 09/23/17 09/23/17 04:15 04:15 WBC 8.4 RBC 4.61 Hgb 9.8 L Hct 33.4 L MCV 72.5 L MCH 21.3 L MCHC 29.4 L RDW 18.2 H Plt Count 266 Sodium 138 Potassium 3.9 Chloride 93 L Carbon Dioxide 35 H Anion Gap 14 BUN 22 H Creatinine 0.8 Est GFR ( Amer) > 60 Est GFR (Non-Af Amer) > 60 POC Glucose (mg/dL) Random Glucose 91 Calcium 8.1 L Total Bilirubin 0.4 AST 47 ALT 45 Alkaline Phosphatase 150 H NT-Pro-B Natriuret Pep 4230 H Total Protein 6.9 Albumin 2.6 L Globulin 4.2 H Albumin/Globulin Ratio 0.6 L Assessment & Plan - Assessment and Plan (Free Text) Assessment: schizophrenia continuous Plan: pt at current mental status not danger to self or others pt psychiatricaly cleared for discharge to long term on medical clearence recommend starting abilify 5mg / considered safest with current cardiac condition
[2017-09-23] MEDS: Mineral Oil/White Petrolatum Ophth Oint OU SCH (22:00)
--- NOTE | 2017-09-23 22:18 | PN ---
CRITICAL CARE PROGRESS NOTE DATE: 09/23/2017 LOCATION: The patient is in ICU, bed 426. TIME SPENT: 35 minutes. SUBJECTIVE: The patient is seen and evaluated at the bedside. Past medical, surgical, social, and family history reviewed as noted in the medical records. Overnight extubated. The patient refused to use oxygen supplement. Telemetry; sinus rhythm, normotensive, and afebrile. OBJECTIVE: GENERAL: This morning; alert, awake, and follows commands appropriate and wants to go home; however, the patient is under police custody and confined to bed. VITAL SIGNS: Temperature 98.2, heart rate 93, blood pressure 125/76, mean arterial pressure 92, respiratory rate 22, and oxygen saturation 100%. Intake 1614 and output 2300, negative balance 686. Urine output 2300. Weight 159 pounds. HEAD, EYES, EARS, NOSE AND THROAT: No icterus. No gaze preference. Pupils are reactive. NECK: No jugular venous distention. Supple. No carotid bruit. CHEST: Bilateral breath sounds. No audible wheeze. HEART: Rhythm regular. S1 and S2 distant. No audible murmur. ABDOMEN: Bowel sounds present. Soft. No palpable mass. EXTREMITIES: Trace edema with chronic skin changes involving both feet. NEUROLOGIC: Oriented to name, place, and time. CURRENT MEDICATIONS: Include Tylenol 975 every 6 hours p.r.n., DuoNeb 3 mL every 4 hours, artificial tears one application both eyes at bedtime, Coreg 3.125 mg p.o. daily, clindamycin 600 mg every 8 hours, Vasotec 2.5 mg p.o. daily, Lovenox 40 subcutaneously daily, Lasix 40 mg IV daily, milrinone drip at 8.5 mL/hour, and Protonix 40 IV daily. Labs reviewed. IMPRESSION AND PLAN: 1. Neurologic: Alert, awake, and follows commands appropriate, status post cardiorespiratory arrest, brief resuscitation, no clear evidence of anoxic encephalopathy. No history of seizure disorder. 2. Respiratory: Status post respiratory failure, requiring intubation, mechanical ventilation, extubated, tolerating well, and refusing oxygen supplement. 3. Cardiac: Congestive cardiomyopathy, status post cardiac arrest, resuscitated, on milrinone, Lasix, Vasotec, and Coreg increased dose as tolerated 4: Renal: stable 5: ID : aspiration pneumonia: on clindamycin Continue gastrointestinal prophylaxis. Deep venous thrombosisprophylaxis. Lovenox 40 mg subcutaneously daily, keep the head of bed 30 degrees up, and feeding with aspiration precautions. Monitor for any signsof aspiration while feeding. Marvel York MD LANA
--- NOTE | 2017-09-23 23:39 | CP.PCM.PN ---
Subjective - Date & Time of Evaluation Date of Evaluation: 09/22/17 Time of Evaluation: 16:00 - Subjective Subjective: s/p CHCx showing non-obstructive CAD, non-ischemic dilated CMP with EF of 10% extubated on milrinone Objective - Vital Signs/Intake and Output Vital Signs (last 24 hours): Temp Pulse Resp BP Pulse Ox 97.8 F 99 H 18 123/81 100 09/23/17 19:00 09/23/17 23:00 09/23/17 23:00 09/23/17 23:00 09/23/17 23:00 Intake and Output: 09/23/17 09/24/17 18:59 06:59 Intake Total 807 174 Output Total 2000 Balance -1193 174 - Medications Medications: Current Medications Acetaminophen (Tylenol 650mg/20.3ml Solution Ud) 975 mg NG Q6 PRN PRN Reason: Rigors Albuterol/Ipratropium (Duoneb 3 Mg/0.5 Mg (3 Ml) Ud) 3 ml INH RQ4 [facility] Last Admin: 09/23/17 19:55 Dose: Not Given Artificial Tears (Lacri-Lube) 1 applic OU HS [facility] Last Admin: 09/22/17 21:09 Dose: 1 applic Carvedilol (Coreg) 3.125 mg PO DAILY [facility] Last Admin: 09/23/17 16:32 Dose: 3.125 mg Dextrose (Dextrose 50% Inj) 0 ml IV STAT PRN; Protocol PRN Reason: Hypoglycemia Protocol Enalapril Maleate (Vasotec) 2.5 mg PO DAILY [facility] Last Admin: 09/23/17 09:18 Dose: 2.5 mg Enoxaparin Sodium (Lovenox) 40 mg SC DAILY [facility] PRN Reason: Protocol Last Admin: 09/23/17 09:17 Dose: 40 mg Furosemide (Lasix) 40 mg IV DAILY [facility] Last Admin: 09/23/17 09:17 Dose: Not Given Milrinone Lactate/Dextrose (Primacor 20mg/100ml D5w) 100 mls @ 8.522 mls/hr IV .[id number] [facility]; 0.375 MCG/KG/MIN PRN Reason: Protocol Last Admin: 09/23/17 12:37 Dose: 0.375 mcg/kg/min, 8.522 mls/hr Clindamycin Phosphate (Cleocin) 600 mg in 50 mls @ 50 mls/hr IVPB Q8 [facility] PRN Reason: Protocol Last Admin: 09/23/17 16:32 Dose: 50 mls/hr Pantoprazole Sodium (Protonix Inj) 40 mg IVP DAILY [facility] Last Admin: 09/23/17 09:18 Dose: 40 mg - Labs Labs: 09/23/17 04:15 09/23/17 04:15 PT 17.4 Seconds (9.8-13.1) H 09/18/17 02:25 INR 1.6 (0.9-1.2) H 09/18/17 02:25 - Constitutional Appears: Well - Head Exam Head Exam: ATRAUMATIC, NORMAL INSPECTION, NORMOCEPHALIC - Eye Exam Eye Exam: EOMI, Normal appearance, PERRL Pupil Exam: NORMAL ACCOMODATION, PERRL - ENT Exam ENT Exam: Mucous Membranes Moist, Normal Exam - Neck Exam Neck Exam: Full ROM, Normal Inspection. absent: Lymphadenopathy - Respiratory Exam Respiratory Exam: Clear to Ausculation Bilateral, Rales, NORMAL BREATHING PATTERN - Cardiovascular Exam Cardiovascular Exam: REGULAR RHYTHM, +S1, +S2, Murmur - GI/Abdominal Exam GI & Abdominal Exam: Soft, Normal Bowel Sounds. absent: Tenderness - Extremities Exam Extremities Exam: Full ROM, Normal Capillary Refill, Normal Inspection. absent : Joint Swelling, Pedal Edema - Back Exam Back Exam: NORMAL INSPECTION - Neurological Exam Neurological Exam: Alert, Awake, CN II-XII Intact, Normal Gait, Oriented x3 - Psychiatric Exam Psychiatric exam: Normal Affect, Normal Mood - Skin Skin Exam: Dry, Intact, Normal Color, Warm Assessment and Plan (1) CHF (congestive heart failure) Assessment & Plan: wean off milrinone initiate RAAS modulators ( Acei and BB ) cont lasix Status: Acute (2) Cardiogenic shock Assessment & Plan: cont milrinone low EF 10-15% Status: Acute (3) Respiratory arrest before cardiac arrest Status: Acute (4) Schizophrenia Status: Acute
--- NOTE | 2017-09-23 23:41 | CP.PCM.PN ---
Subjective - Date & Time of Evaluation Date of Evaluation: 09/23/17 Time of Evaluation: 08:30 - Subjective Subjective: feeling fine wants meds to relax mildly tachycardic Objective - Vital Signs/Intake and Output Vital Signs (last 24 hours): Temp Pulse Resp BP Pulse Ox 97.8 F 99 H 18 123/81 100 09/23/17 19:00 09/23/17 23:00 09/23/17 23:00 09/23/17 23:00 09/23/17 23:00 Intake and Output: 09/23/17 09/24/17 18:59 06:59 Intake Total 807 174 Output Total 1999 Balance -1193 174 - Medications Medications: Current Medications Acetaminophen (Tylenol 650mg/20.3ml Solution Ud) 975 mg NG Q6 PRN PRN Reason: Rigors Albuterol/Ipratropium (Duoneb 3 Mg/0.5 Mg (3 Ml) Ud) 3 ml INH RQ4 [facility] Last Admin: 09/23/17 19:55 Dose: Not Given Artificial Tears (Lacri-Lube) 1 applic OU HS [facility] Last Admin: 09/22/17 21:09 Dose: 1 applic Carvedilol (Coreg) 3.125 mg PO DAILY [facility] Last Admin: 09/23/17 16:32 Dose: 3.125 mg Dextrose (Dextrose 50% Inj) 0 ml IV STAT PRN; Protocol PRN Reason: Hypoglycemia Protocol Enalapril Maleate (Vasotec) 2.5 mg PO DAILY [facility] Last Admin: 09/23/17 09:18 Dose: 2.5 mg Enoxaparin Sodium (Lovenox) 40 mg SC DAILY [facility] PRN Reason: Protocol Last Admin: 09/23/17 09:17 Dose: 40 mg Furosemide (Lasix) 40 mg IV DAILY [facility] Last Admin: 09/23/17 09:17 Dose: Not Given Milrinone Lactate/Dextrose (Primacor 20mg/100ml D5w) 100 mls @ 8.522 mls/hr IV .[id number] [facility]; 0.375 MCG/KG/MIN PRN Reason: Protocol Last Admin: 09/23/17 12:37 Dose: 0.375 mcg/kg/min, 8.522 mls/hr Clindamycin Phosphate (Cleocin) 600 mg in 50 mls @ 50 mls/hr IVPB Q8 [facility] PRN Reason: Protocol Last Admin: 09/23/17 16:32 Dose: 50 mls/hr Pantoprazole Sodium (Protonix Inj) 40 mg IVP DAILY [facility] Last Admin: 09/23/17 09:18 Dose: 40 mg - Labs Labs: 09/23/17 04:15 09/23/17 04:15 PT 17.4 Seconds (9.8-13.1) H 09/18/17 02:25 INR 1.6 (0.9-1.2) H 09/18/17 02:25 - Constitutional Appears: Well - Head Exam Head Exam: ATRAUMATIC, NORMAL INSPECTION, NORMOCEPHALIC - Eye Exam Eye Exam: EOMI, Normal appearance, PERRL Pupil Exam: NORMAL ACCOMODATION, PERRL - ENT Exam ENT Exam: Mucous Membranes Moist, Normal Exam - Neck Exam Neck Exam: Full ROM, Normal Inspection. absent: Lymphadenopathy - Respiratory Exam Respiratory Exam: Clear to Ausculation Bilateral, NORMAL BREATHING PATTERN - Cardiovascular Exam Cardiovascular Exam: REGULAR RHYTHM, +S1, +S2, Murmur - GI/Abdominal Exam GI & Abdominal Exam: Soft, Normal Bowel Sounds. absent: Tenderness - Extremities Exam Extremities Exam: Full ROM, Normal Capillary Refill, Normal Inspection. absent : Joint Swelling, Pedal Edema - Back Exam Back Exam: NORMAL INSPECTION - Neurological Exam Neurological Exam: Alert, Awake, CN II-XII Intact, Oriented x3 - Psychiatric Exam Psychiatric exam: Flat Affect, Normal Mood - Skin Skin Exam: Dry, Intact, Normal Color, Warm Assessment and Plan (1) CHF (congestive heart failure) Assessment & Plan: cont milrinone - wean off slowly cont acei and bb - uptitrate as bp tolerates cont lasix Status: Acute (2) Cardiogenic shock Status: Acute (3) Respiratory arrest before cardiac arrest Status: Acute (4) Schizophrenia Status: Acute
[2017-09-24] MEDS: Clindamycin 600mg/50ml D5W 600 MG/50 ML VIAL IVPB SCH ×3 (00:31→16:46)
[2017-09-24] MEDS: Milrinone 20mg/100ml D5W 100 ML IV SCH (00:35)
[2017-09-24] MEDS: Albuterol-Ipratrop 3 mg / 0.5 (3 ml) UD INH SCH (04:16)
[2017-09-24 06:48] LABS: HEMOGLOBIN 10.3 g/dL (12.0-18.0); MEAN CELL VOLUME 72.1 fl (80.0-94.0); MEAN CORPUSCULAR HEMOGLOBIN 21.6 pg (27.0-31.0); RBC 4.75 Mil/uL (4.40-5.90); RED CELL DISTRIBUTION WIDTH 18.3 % (11.5-14.5); WHITE BLOOD COUNT 8.2 K/uL (4.8-10.8)
[2017-09-24] MEDS: Albuterol 0.083% Inhal Sol (2.5 mg/3 mL) UD INH SCH ×4 (07:15→19:49)
--- NOTE | 2017-09-24 07:22 | CP.PCM.PN ---
Subjective - Date & Time of Evaluation Date of Evaluation: 09/24/17 Time of Evaluation: 08:30 - Subjective Subjective: Patient seen and examined . Hemodynamically stable, afebrile. Denies any chest pain or SOB. On Milrinone drip No acute issues overnight Objective - Vital Signs/Intake and Output Vital Signs (last 24 hours): Temp Pulse Resp BP Pulse Ox 97.8 F 91 H 23 138/77 98 09/24/17 04:00 09/24/17 06:43 09/24/17 06:43 09/24/17 06:43 09/24/17 06:43 Intake and Output: 09/24/17 09/24/17 06:59 18:59 Intake Total 598 Output Total 200 Balance 398 - Medications Medications: Current Medications Acetaminophen (Tylenol 650mg/20.3ml Solution Ud) 975 mg NG Q6 PRN PRN Reason: Rigors Albuterol/Ipratropium (Duoneb 3 Mg/0.5 Mg (3 Ml) Ud) 3 ml INH RQ4 [facility] Last Admin: 09/24/17 04:16 Dose: Not Given Artificial Tears (Lacri-Lube) 1 applic OU HS [facility] Last Admin: 09/23/17 22:00 Dose: 1 applic Carvedilol (Coreg) 3.125 mg PO DAILY [facility] Last Admin: 09/23/17 16:32 Dose: 3.125 mg Dextrose (Dextrose 50% Inj) 0 ml IV STAT PRN; Protocol PRN Reason: Hypoglycemia Protocol Enalapril Maleate (Vasotec) 2.5 mg PO DAILY [facility] Last Admin: 09/23/17 09:18 Dose: 2.5 mg Enoxaparin Sodium (Lovenox) 40 mg SC DAILY [facility] PRN Reason: Protocol Last Admin: 09/23/17 09:17 Dose: 40 mg Furosemide (Lasix) 40 mg IV DAILY [facility] Last Admin: 09/23/17 09:17 Dose: Not Given Furosemide (Lasix) 40 mg IVP STAT [facility] Stop: 09/24/17 07:21 Milrinone Lactate/Dextrose (Primacor 20mg/100ml D5w) 100 mls @ 8.522 mls/hr IV .[id number] [facility]; 0.375 MCG/KG/MIN PRN Reason: Protocol Last Admin: 09/24/17 00:35 Dose: 0.375 mcg/kg/min, 8.522 mls/hr Clindamycin Phosphate (Cleocin) 600 mg in 50 mls @ 50 mls/hr IVPB Q8 [facility] PRN Reason: Protocol Last Admin: 09/24/17 00:31 Dose: 50 mls/hr Pantoprazole Sodium (Protonix Inj) 40 mg IVP DAILY [facility] Last Admin: 09/23/17 09:18 Dose: 40 mg - Labs Labs: 09/24/17 06:00 09/23/17 04:15 PT 17.4 Seconds (9.8-13.1) H 09/18/17 02:25 INR 1.6 (0.9-1.2) H 09/18/17 02:25 - Constitutional Appears: No Acute Distress, Older Than Stated Age, Chronically Ill - Head Exam Head Exam: ATRAUMATIC, NORMOCEPHALIC - Eye Exam Eye Exam: EOMI, PERRL - ENT Exam ENT Exam: Mucous Membranes Dry, Normal Exam - Neck Exam Neck Exam: Full ROM, Normal Inspection - Respiratory Exam Respiratory Exam: Rales (bilaterally ), NORMAL BREATHING PATTERN. absent: Rhonchi, Wheezes, Respiratory Distress - Cardiovascular Exam Cardiovascular Exam: REGULAR RHYTHM, +S1, +S2. absent: JVD - GI/Abdominal Exam GI & Abdominal Exam: Soft, Normal Bowel Sounds. absent: Distended, Guarding, Tenderness, Rebound - Rectal Exam Rectal Exam: Deferred - Extremities Exam Additional comments: bilateral big toes dry calluses and echymosis - Neurological Exam Neurological Exam: Alert, Awake, CN II-XII Intact - Psychiatric Exam Psychiatric exam: Flat Affect - Skin Skin Exam: Dry, Normal Color, Warm Assessment and Plan - Assessment and Plan (Free Text) Assessment: 57 year old male with unknown past medical history was seen in the emergency department 09/15 for testicular pain, and was discharged. He was then brought by police for medical and psychiatric clearance prior to incarceration. Patient was sedated with haldol and Ativan because he was very agitated and aggressive towards staff . He was noted to have lower extremity edema, +Cough, no sputum, Afebrile, no WBC, however BNP 8K and CXR showed vascular congestion and questionable RLL infiltrates. Mild crackles on exam noted , no dyspnea. He was Gently diuresed, and empirically started on IV antibiotics for CAP. Overnight went into respiratory failure with suspicious aspiration ( pooling of secretions ) that followed by asystole,coded for 11 minutes , intubated, central line placed and started on Levophed .Large amount of secretions with mucus and saliva noted during intubation . Started on hypothermia protocol initially and discontinued since patient became responsive. Echo showed very poor cardiac function with EF < 10 % Cardiology consulted and patient started on Dobutamine drip CT chest and CXR showed bilateral vascular congestion suspicious for ARDS 09/21: Cardiac cath at [facility] : Moderate RCA disease, 10 % EF, Low Cardiac output Extubated on 09/22 and tolerating well. Still on Milrinone drip 0.375 mcg and congested 1. Acute respiratory failure secondary to CHF exacerbation leading to respiratory arrest and cardiac arrest Extubated 09/22 and tolerating well Still congested . Will give another extra dose of lasix today and increase to Lasix BID Continue O2 via NC On IV Clindamycin for possible aspiration pneumonia 2. Cardiogenic Shock/ CHF exacerbation echo showed EF < 10 % with hypokinesis and parodoxal septal motion Cardiology consulted and case discussed with Dr. Cook- pt went for Right and Left Cardiac cath that showed EF =10% , mod RCA dis, low CO On Milrinone drip @ 0.375 mcg . Will titrate as per cardiology Increased Coreg to 3.125 mg PO BID continue vasotec 2.5 mg po QD Will titrate dose up slowly if tolerated by BP continue Lasix but switch to PO 3. Suspected aspiration Pneumonia cont clindamycin O2 via NC Respiratory toilet with aspiration precautions 4.Anemia Most likely chronic, stable Hgb 9.7 5. Transaminitis most likely secondary to passive liver congestion - now normal Continue monitoring 6. Hypoglycemia resolved restarted Po diet D/c accuchecks 7. History of Schizophrenia Psych consult appreciated patient is cleared by psych for discharge or incarceration . No treatemnt recommended at this time 8.VTE Proph lovenox
[2017-09-24 08:03] LABS: BLOOD UREA NITROGEN 17 mg/dl (9-20); GFR AFRICAN-AMERICAN > 60; GFR NON-AFRICAN AMERICAN > 60
[2017-09-24] MEDS: Enoxaparin 40 mg Syringe SC SCH (08:19)
[2017-09-24] MEDS: Pantoprazole 40 mg EC Tab PO SCH (08:21)
--- NOTE | 2017-09-24 12:05 | RAD ---
PROCEDURE: CHEST RADIOGRAPH, 1 VIEW HISTORY: CHF COMPARISON: None available. FINDINGS: LUNGS: Worsening bilateral infiltrates. PLEURA: No pneumothorax or pleural fluid seen. CARDIOVASCULAR: Normal. OSSEOUS STRUCTURES: No significant abnormalities. VISUALIZED UPPER ABDOMEN: Normal. OTHER FINDINGS: ETT removed. IMPRESSION: ETT removed. Bilateral worsening infiltrates.
[2017-09-24] MEDS: Potassium Chloride 10 mEq ER Tab PO SCH (12:18)
--- NOTE | 2017-09-24 14:53 | PN ---
DATE: 09/24/2017 CRITICAL CARE PROGRESS NOTE LOCATION: The patient is in ICU bed number 426. Time spent 35 minutes. The patient is seen and evaluated at the bedside. Past medical, surgical, social and family history reviewed; overnight reviewed. SUBJECTIVE: A 57-year-old male admitted with shortness of breath sustained respiratory followed by cardiac arrest. Intubated on mechanical ventilation, extubated and currently on oxygen supplement 2 liters nasal cannula. Telemetry sinus rhythm, PHYSICAL EXAMINATION: VITAL SIGNS: Blood pressure 162/147, afebrile, saturation of 100% on oxygen 2 liters nasal cannula. Intake of 1405 and output 2200, negative balance 795. Weight of 159 pounds. HEENT: Examination of head, eyes, ears, nose and throat: Pupils are reactive. Conjunctivae pink. Sclerae are white. NECK: Supple. No carotid bruits. CHEST: Bilateral breath sounds. No audible wheeze. Fine crepitations at the bases. HEART: Rhythm regular. S1 and S2 normal. No audible murmur. ABDOMEN: Bowel sounds present. Soft and no palpable mass. EXTREMITIES: Trace edema. Chronic skin changes involving both feet. NEUROLOGIC: Oriented to name, place and time. CURRENT MEDICATIONS: Reviewed and include Tylenol 975 every 6 hours p.r.n., albuterol 2.5 mg via nebulizer every 6 hours, artificial tears one application both eyes at bedtime, Coreg 3.125 mg every 12 hours., clindamycin 600 mg IV every 8 hours,, Lovenox 40 mg subcutaneous daily, Lasix 40 IV every 12 hours, milrinone drip being weaned off Protonix 40 p.o. daily, and potassium chloride 10 mEq p.o. daily. LABORATORY DATA: WBC of 8.2, hemoglobin of 10.3, hematocrit of 34.2, platelet count of 299. SMA-7: Sodium of 133, potassium of 4, chloride of 87, CO2 of 38, blood urea nitrogen of 17, creatinine of 0.7, random glucose of 68, and calcium of 8. Urinalysis is negative. Urine toxicology screen negative. Alcohol level less than 10. Microbiology, nasal smear MRSA negative. Sputum culture normal yanick. IMAGING DATA: Chest x-ray: Reduced bilateral infiltrate and basilar atelectasis/effusion. IMPRESSION AND PLAN: 1. Neurologic: Status post cardiorespiratory arrest. No significant anoxic encephalopathy noted. Alert and awake, oriented to name, place and time now. 2. Pulmonary: Status post respiratory arrest, intubated, suspected aspiration pneumonia, extubated and currently on oxygen supplement. Possible chronic obstructive pulmonary disease/pulmonary fibrosis as noted in the chest x-ray and CT scan. We will continue bronchodilator. 3. Cardiac: Congestive cardiomyopathy with very poor ejection fraction status post cardiac arrest, resuscitated. Continue on milrinone. wean off as tolerated. Continue Vasotec and Coreg, dose increased to 3.125 mg q. 12 hours. 4. Renal: Mild prerenal azotemia, stable. 5. Gastrointestinal: Liver enzymes improved. 6. Infectious Diseases: Aspiration pneumonia on clindamycin. 7. Prophylaxis: Continue gastrointestinal and deep venous thrombosis prophylaxis. 8. Psychiatric: History of substance abuse and history of schizophrenia. Seen by psychiatric consult. Recommend Abilify to start on discharge. Keep the head of bed 30 degrees up and feeding as tolerated. Marvel York MD MTDEriberto
[2017-09-24] MEDS ORDERED: Milrinone 20mg/100ml D5W 100 ML IV SCH (20:15)
[2017-09-25] MEDS: Clindamycin 600mg/50ml D5W 600 MG/50 ML VIAL IVPB SCH ×3 (00:06→16:26)
[2017-09-25 05:43] LABS: HEMOGLOBIN 10.1 g/dL (12.0-18.0); MEAN CORPUSCULAR HEMOGLOBIN 21.8 pg (27.0-31.0); MEAN CORPUSCULAR HGB CONC 30.3 g/dL (33.0-37.0); RBC 4.63 Mil/uL (4.40-5.90); RED CELL DISTRIBUTION WIDTH 18.1 % (11.5-14.5); WHITE BLOOD COUNT 8.5 K/uL (4.8-10.8)
[2017-09-25 06:13] LABS: BLOOD UREA NITROGEN 15 mg/dl (9-20); CALCIUM 7.9 mg/dL (8.4-10.2); GFR AFRICAN-AMERICAN > 60; GFR NON-AFRICAN AMERICAN > 60
--- NOTE | 2017-09-25 07:35 | CP.CCUPN ---
CCU Subjective - Physician Review Events Since Last Encounter (Free Text): 09/25/17 16:51 The patient was Seen/interviewed and examined by me at the bedside during ICU round, Medical records reviewed and Management issues were discussed and formulated with the house staff. Events reviewed Clinically improving, No Vasopressors, Only Milrinone drip Improved respiratory status Breathing unlabored, O2 sat 97%. Sitting comfortable in chair, NAD Alert and oriented x3. Denies any chest pain, SOB CCU Objective - Vital Signs / Intake & Output Vital Signs (Last 4 hours): Vital Signs Temp Pulse Resp BP Pulse Ox 09/25/17 06:00 92 H 24 127/88 92 L 09/25/17 05:00 91 H 26 H 125/78 96 09/25/17 04:00 98 F 89 29 H 108/57 L 96 Intake and Output (Last 8hrs): Intake & Output 09/24/17 09/25/17 09/25/17 22:59 06:59 14:59 Intake Total 676 138 Balance 676 138 Intake: IV 16 18 Intake, Piggyback 50 Oral 610 120 - Physical Exam Head: Positive for: Atraumatic, Normocephalic Pupils: Positive for: Sluggish Conjunctiva: Positive for: Normal Mouth: Positive for: Moist Mucous Membranes Respiratory/Chest: Positive for: Clear to Auscultation Cardiovascular: Positive for: Regular Rate and Rhythm Abdomen: Positive for: Normal Bowel Sounds. Negative for: Tenderness, Distention Neurological: Positive for: Other (sedated) - Medications Active Medications: Active Medications Generic Name Dose Route Start Last Admin Trade Name Freq PRN Reason Stop Dose Admin Acetaminophen 975 mg 09/18/17 02:30 Tylenol 650mg/20.3ml Solution Ud NG Q6 PRN Rigors Albuterol Sulfate 2.5 mg 09/24/17 08:00 09/24/17 19:49 Albuterol 0.083% Inhal Daya (2.5 Mg/3 Ml) Ud INH Not Given RQID TIMUR Carvedilol 3.125 mg 09/24/17 09:00 09/24/17 20:48 Coreg PO 3.125 mg Q12 TIMUR Administration Dextrose 0 ml 09/18/17 05:13 Dextrose 50% Inj IV STAT PRN Hypoglycemia Protocol Protocol Enoxaparin Sodium 40 mg 09/22/17 09:00 09/24/17 08:19 Lovenox SC 40 mg DAILY TIMUR Administration Protocol Furosemide 40 mg 09/24/17 21:00 09/24/17 20:32 Lasix PO 40 mg Q12 TIMUR Administration Milrinone Lactate/Dextrose 100 mls @ 8.522 mls/hr 09/20/17 12:00 09/24/17 00: 35 Primacor 20mg/100ml D5w IV 0.375 mcg/kg/min .[id number] TIMUR 8.522 mls/hr Protocol Administration 0.375 MCG/KG/MIN Clindamycin Phosphate 600 mg in 50 mls @ 50 mls/hr 09/22/17 17:00 09/25/17 00 :06 Cleocin IVPB 50 mls/hr Q8 TIMUR Administration Protocol Milrinone Lactate/Dextrose 100 mls @ 8.114 mls/hr 09/24/17 20:15 09/24/17 20: 36 Primacor 20mg/100ml D5w IV 0.375 mcg/kg/min .[id number] TIMUR 8.114 mls/hr Protocol Administration 0.375 MCG/KG/MIN Pantoprazole Sodium 40 mg 09/24/17 09:00 09/24/17 08:21 Protonix Ec Tab PO 40 mg DAILY TIMUR Administration Potassium Chloride 10 meq 09/24/17 09:00 09/24/17 12:18 Klor-Con 10 PO 10 meq DAILY TIMUR Administration - Patient Studies Lab Studies: Lab Studies 09/25/17 09/25/17 09/24/17 Range/Units 04:20 04:20 06:00 WBC 8.5 (4.8-10.8) K/uL RBC 4.63 (4.40-5.90) Mil/uL Hgb 10.1 L (12.0-18.0) g/dL Hct 33.3 L (35.0-51.0) % MCV 72.0 L (80.0-94.0) fl MCH 21.8 L (27.0-31.0) pg MCHC 30.3 L (33.0-37.0) g/dL RDW 18.1 H (11.5-14.5) % Plt Count 325 (130-400) K/uL Sodium 131 L 133 (132-148) mmol/l Potassium 4.1 4.0 (3.6-5.0) MMOL/L Chloride 87 L 87 L (98-107) mmol/L Carbon Dioxide 37 H 38 H (22-30) mmol/L Anion Gap 11 12 (10-20) BUN 15 17 (9-20) mg/dl Creatinine 0.6 L 0.7 L (0.8-1.5) mg/dl Est GFR ( Amer) > 60 > 60 Est GFR (Non-Af Amer) > 60 > 60 Random Glucose 85 68 L (75-110) mg/dL Calcium 7.9 L 8.0 L (8.4-10.2) mg/dL Laboratory Results - last 24 hr 09/24/17 09/25/17 09/25/17 06:00 04:20 04:20 WBC 8.5 RBC 4.63 Hgb 10.1 L Hct 33.3 L MCV 72.0 L MCH 21.8 L MCHC 30.3 L RDW 18.1 H Plt Count 325 Sodium 133 131 L Potassium 4.0 4.1 Chloride 87 L 87 L Carbon Dioxide 38 H 37 H Anion Gap 12 11 BUN 17 15 Creatinine 0.7 L 0.6 L Est GFR ( Amer) > 60 > 60 Est GFR (Non-Af Amer) > 60 > 60 Random Glucose 68 L 85 Calcium 8.0 L 7.9 L Fingerstick Blood Sugar Results: 100 Review of Systems - Cardiovascular Cardiovascular: absent: As Per HPI, Acrocyanosis, Chest Pain, Chest Pain at Rest , Chest Pain with Activity, Claudication, Diaphoresis, Dyspnea, Dyspnea on Exertion, Edema, Irregular Heart Rhythm, Pain Radiating to Arm/Neck/Jaw, Leg Edema, Leg Ulcers, Lightheadedness, Orthopnea, Palpitations, Paroxysmal Nocturnal Dyspnea, Pedal Edema, Radiating Pain, Rapid Heart Rate, Slow Heart Rate, Syncope, Other, UNREMARKABLE - Respiratory Respiratory: absent: As Per HPI, Cough, Dyspnea, Hemoptysis, Dyspnea on Exertion , Wheezing, Snoring, Stridor, Pain on Inspiration, Chest Congestion, Excessive Mucous Production, Change in Mucous Color, Pain with Coughing, Other, UNREMARKABLE Critical Care Progress Note - Nutrition Nutrition: Nutrition Category Date Time Status Heart Healthy Diet [DIET] Diets 09/22/17 Lunch Active Assessment/Plan (1) Cardiogenic shock Current Visit: Yes Status: Acute Comment: 09/21: Cardiac cath at [facility]: Moderate RCA disease, Low Cardiac output with 10 % EF, CI 1.8 Continue Milrinone drip @ 0.375 mcg/kg/min. Continue Lasix (2) CHF (congestive heart failure) Current Visit: Yes Status: Acute Comment: Titrate up the dose of BB and REN I as BP tolerates (3) Respiratory arrest before cardiac arrest Current Visit: Yes Status: Acute Comment: Successfully Extubated 09/22 Suspected aspiration Pneumonia Cont. Clindamycin 600 mg IVPB Q8 (4) Schizophrenia Current Visit: No Status: Acute
[2017-09-25] MEDS: Albuterol 0.083% Inhal Sol (2.5 mg/3 mL) UD INH SCH ×4 (07:46→20:00)
[2017-09-25] MEDS: Pantoprazole 40 mg EC Tab PO SCH (09:39)
[2017-09-25] MEDS: Potassium Chloride 10 mEq ER Tab PO SCH (09:39)
[2017-09-25] MEDS: Enoxaparin 40 mg Syringe SC SCH ×2 (09:39→09:45)
[2017-09-25] MEDS ORDERED: Milrinone 20mg/100ml D5W 100 ML IV SCH (10:45)
--- NOTE | 2017-09-25 10:47 | CP.PCM.PN ---
Subjective - Date & Time of Evaluation Date of Evaluation: 09/25/17 Time of Evaluation: 10:20 - Subjective Subjective: Pt is still on Milrinone drip- will decrease dose denies CP occ cough no SOB at present no abd pain good PO intake Objective - Vital Signs/Intake and Output Vital Signs (last 24 hours): Temp Pulse Resp BP Pulse Ox 98 F 94 H 26 H 133/75 100 09/25/17 08:00 09/25/17 09:37 09/25/17 08:00 09/25/17 09:39 09/25/17 08:00 Intake and Output: 09/25/17 09/25/17 06:59 18:59 Intake Total 378 Balance 378 - Medications Medications: Current Medications Acetaminophen (Tylenol 650mg/20.3ml Solution Ud) 975 mg NG Q6 PRN PRN Reason: Rigors Albuterol Sulfate (Albuterol 0.083% Inhal Daya (2.5 Mg/3 Ml) Ud) 2.5 mg INH RQID [facility] Last Admin: 09/25/17 07:46 Dose: Not Given Carvedilol (Coreg) 3.125 mg PO Q12 TIMUR Last Admin: 09/25/17 09:37 Dose: 3.125 mg Dextrose (Dextrose 50% Inj) 0 ml IV STAT PRN; Protocol PRN Reason: Hypoglycemia Protocol Enoxaparin Sodium (Lovenox) 40 mg SC DAILY TIMUR PRN Reason: Protocol Last Admin: 09/25/17 09:45 Dose: Not Given Furosemide (Lasix) 40 mg PO Q12 [facility] Last Admin: 09/25/17 09:39 Dose: 40 mg Milrinone Lactate/Dextrose (Primacor 20mg/100ml D5w) 100 mls @ 8.522 mls/hr IV .[id number] TIMUR; 0.375 MCG/KG/MIN PRN Reason: Protocol Last Admin: 09/24/17 00:35 Dose: 0.375 mcg/kg/min, 8.522 mls/hr Clindamycin Phosphate (Cleocin) 600 mg in 50 mls @ 50 mls/hr IVPB Q8 TIMUR PRN Reason: Protocol Last Admin: 09/25/17 09:38 Dose: 50 mls/hr Milrinone Lactate/Dextrose (Primacor 20mg/100ml D5w) 100 mls @ 4.327 mls/hr IV .Q23H7M TIMUR; 0.2 MCG/KG/MIN PRN Reason: Protocol Lisinopril (Zestril) 10 mg PO DAILY TIMUR Pantoprazole Sodium (Protonix Ec Tab) 40 mg PO DAILY TIMUR Last Admin: 09/25/17 09:39 Dose: 40 mg Potassium Chloride (Klor-Con 10) 10 meq PO DAILY TIMUR Last Admin: 09/25/17 09:39 Dose: 10 meq - Labs Labs: 09/25/17 04:20 09/25/17 04:20 PT 17.4 Seconds (9.8-13.1) H 09/18/17 02:25 INR 1.6 (0.9-1.2) H 09/18/17 02:25 - Constitutional Appears: Older Than Stated Age, Chronically Ill, Other - Head Exam Head Exam: NORMAL INSPECTION, NORMOCEPHALIC - Eye Exam Eye Exam: EOMI, Normal appearance Pupil Exam: NORMAL ACCOMODATION - ENT Exam ENT Exam: Mucous Membranes Moist, Normal External Ear Exam Additional comments: poor dentition - Neck Exam Neck Exam: Full ROM. absent: Meningismus - Respiratory Exam Respiratory Exam: Rales, Rhonchi, NORMAL BREATHING PATTERN. absent: Respiratory Distress Additional comments: - Cardiovascular Exam Cardiovascular Exam: REGULAR RHYTHM, +S1, +S2 - GI/Abdominal Exam GI & Abdominal Exam: Soft, Normal Bowel Sounds. absent: Tenderness - Extremities Exam Extremities Exam: absent: Pedal Edema, callused LE - Neurological Exam Neurological Exam: Alert, Awake, moves all extremities Additional comments: oriented to person and place - Psychiatric Exam Additional comments: uncooperative - Skin Skin Exam: Dry, Normal Color, Warm Assessment and Plan - Assessment and Plan (Free Text) Assessment: 57 year old male with unknown past medical history was seen in the emergency department 09/15 for testicular pain, and was discharged. He was then brought by police for medical and psychiatric clearance prior to incarceration. Patient was sedated with haldol and Ativan because he was very agitated and aggressive towards staff . He was noted to have lower extremity edema, +Cough, no sputum, Afebrile, no WBC, however BNP 8K and CXR showed vascular congestion and questionable RLL infiltrates. Mild crackles on exam noted , no dyspnea . He was diuresed, and empirically started on IV antibiotics for CAP. Overnight went into respiratory failure with suspicious aspiration ( pooling of secretions ) that was followed by asystole, coded for 11 minutes , intubated, central line placed and started on Levophed . Large amount of secretions with mucus and saliva noted during intubation . Started on hypothermia protocol initially and discontinued since patient became responsive. Echo showed very poor cardiac function with EF < 10 % Cardiology consulted and patient started on Dobutamine drip. CT chest and CXR showed bilateral vascular congestion suspicious for ARDS. 09/21: Cardiac cath at [facility] : Moderate RCA disease, 10 % EF, Low Cardiac output Extubated on 09/22 and tolerating well. Still on Milrinone drip 0.375 mcg . 1. Acute respiratory failure secondary to CHF exacerbation leading to respiratory arrest and cardiac arrest Extubated 09/22 and tolerating well Still congested . Cont increase to Lasix BID Continue O2 via NC On IV Clindamycin for possible aspiration pneumonia 2. Cardiogenic Shock/ CHF exacerbation echo showed EF < 10 % with hypokinesis and parodoxal septal motion Cardiology consulted and case discussed with Dr. Cook- pt went for Right and Left Cardiac cath that showed EF =10% , mod RCA dis, low CO On Milrinone drip @ 0.375 mcg . Will titrate as per cardiology - discussed with Dr Cook - rec to decrease by half and increase Coreg dose and start REN Increased Coreg to 3.125 mg PO BID Will titrate dose up slowly if tolerated by BP continue Lasix but switch to PO 3. Suspected aspiration Pneumonia cont clindamycin IV O2 via NC Respiratory toilet with aspiration precautions 4.Anemia Most likely chronic, stable Hgb 10.1 5. Transaminitis most likely secondary to passive liver congestion - now normal Continue monitoring 6. Hypoglycemia resolved restarted Po diet D/c accuchecks 7. History of Schizophrenia Psych consult appreciated patient is cleared by psych for discharge or incarceration . No treatment recommended at this time 8.VTE Proph lovenox
--- NOTE | 2017-09-25 22:45 | CP.PCM.PN ---
Subjective - Date & Time of Evaluation Date of Evaluation: 09/25/17 Time of Evaluation: 09:00 - Subjective Subjective: BP stable on milrinone tolerating BB and ACEi Objective - Vital Signs/Intake and Output Vital Signs (last 24 hours): Temp Pulse Resp BP Pulse Ox 98.1 F 89 19 112/66 100 09/25/17 16:00 09/25/17 22:00 09/25/17 22:00 09/25/17 22:00 09/25/17 22:00 Intake and Output: 09/25/17 09/26/17 18:59 06:59 Intake Total 550 120 Balance 550 120 - Medications Medications: Current Medications Acetaminophen (Tylenol 650mg/20.3ml Solution Ud) 975 mg NG Q6 PRN PRN Reason: Rigors Albuterol Sulfate (Albuterol 0.083% Inhal Daya (2.5 Mg/3 Ml) Ud) 2.5 mg INH RQID TIMUR Last Admin: 09/25/17 20:00 Dose: Not Given Carvedilol (Coreg) 3.125 mg PO Q12 TIMUR Last Admin: 09/25/17 21:11 Dose: 3.125 mg Dextrose (Dextrose 50% Inj) 0 ml IV STAT PRN; Protocol PRN Reason: Hypoglycemia Protocol Enoxaparin Sodium (Lovenox) 40 mg SC DAILY TIMUR PRN Reason: Protocol Last Admin: 09/25/17 09:45 Dose: Not Given Furosemide (Lasix) 40 mg PO Q12 TIMUR Last Admin: 09/25/17 21:11 Dose: 40 mg Milrinone Lactate/Dextrose (Primacor 20mg/100ml D5w) 100 mls @ 8.522 mls/hr IV .[id number] TIMUR; 0.375 MCG/KG/MIN PRN Reason: Protocol Last Admin: 09/24/17 00:35 Dose: 0.375 mcg/kg/min, 8.522 mls/hr Clindamycin Phosphate (Cleocin) 600 mg in 50 mls @ 50 mls/hr IVPB Q8 TIMUR PRN Reason: Protocol Last Admin: 09/25/17 16:26 Dose: 50 mls/hr Milrinone Lactate/Dextrose (Primacor 20mg/100ml D5w) 100 mls @ 4.327 mls/hr IV .Q23H7M TIMUR; 0.2 MCG/KG/MIN PRN Reason: Protocol Last Admin: 09/25/17 11:04 Dose: 0.2 mcg/kg/min, 4.327 mls/hr Lisinopril (Zestril) 10 mg PO DAILY [facility] Last Admin: 09/25/17 16:25 Dose: 10 mg Pantoprazole Sodium (Protonix Ec Tab) 40 mg PO DAILY [facility] Last Admin: 09/25/17 09:39 Dose: 40 mg Potassium Chloride (Klor-Con 10) 10 meq PO DAILY [facility] Last Admin: 09/25/17 09:39 Dose: 10 meq - Labs Labs: 09/25/17 04:20 09/25/17 04:20 PT 17.4 Seconds (9.8-13.1) H 09/18/17 02:25 INR 1.6 (0.9-1.2) H 09/18/17 02:25 - Constitutional Appears: Well - Head Exam Head Exam: ATRAUMATIC, NORMAL INSPECTION, NORMOCEPHALIC - Eye Exam Eye Exam: EOMI, Normal appearance, PERRL Pupil Exam: NORMAL ACCOMODATION, PERRL - ENT Exam ENT Exam: Mucous Membranes Moist, Normal Exam - Neck Exam Neck Exam: Full ROM, Normal Inspection. absent: Lymphadenopathy - Respiratory Exam Respiratory Exam: Clear to Ausculation Bilateral, NORMAL BREATHING PATTERN - Cardiovascular Exam Cardiovascular Exam: REGULAR RHYTHM, +S1, +S2, Murmur - GI/Abdominal Exam GI & Abdominal Exam: Soft, Normal Bowel Sounds. absent: Tenderness - Extremities Exam Extremities Exam: Full ROM, Normal Capillary Refill, Normal Inspection. absent : Joint Swelling, Pedal Edema - Back Exam Back Exam: NORMAL INSPECTION - Neurological Exam Neurological Exam: Alert, Awake, CN II-XII Intact, Normal Gait, Oriented x3 - Psychiatric Exam Psychiatric exam: Normal Affect, Normal Mood - Skin Skin Exam: Dry, Intact, Normal Color, Warm Assessment and Plan (1) CHF (congestive heart failure) Assessment & Plan: improving wean off milrinone in 24 hours increase acei and bb as BP tolerates cont lasix Status: Acute (2) Respiratory arrest before cardiac arrest Status: Acute (3) Schizophrenia Status: Acute
[2017-09-26] MEDS: Clindamycin 600mg/50ml D5W 600 MG/50 ML VIAL IVPB SCH ×3 (01:45→16:37)
[2017-09-26 05:24] LABS: HEMOGLOBIN 10.9 g/dL (12.0-18.0); MEAN CELL VOLUME 72.8 fl (80.0-94.0); MEAN CORPUSCULAR HEMOGLOBIN 21.3 pg (27.0-31.0); MEAN CORPUSCULAR HGB CONC 29.2 g/dL (33.0-37.0); RBC 5.13 Mil/uL (4.40-5.90); RED CELL DISTRIBUTION WIDTH 18.2 % (11.5-14.5)
[2017-09-26 05:37] LABS: BLOOD UREA NITROGEN 16 mg/dl (9-20); CALCIUM 7.8 mg/dL (8.4-10.2); GFR AFRICAN-AMERICAN > 60; GFR NON-AFRICAN AMERICAN > 60
--- NOTE | 2017-09-26 07:34 | CP.CCUPN ---
CCU Subjective - Physician Review Events Since Last Encounter (Free Text): 09/26/17 16:33 The patient was Seen/interviewed and examined by me at the bedside during ICU round, Medical records reviewed and Management issues were discussed and formulated with the house staff. Events reviewed Clinically improving, No Vasopressors, Only Milrinone drip Improved respiratory status Breathing unlabored, O2 sat 97%. Sitting comfortable in chair, NAD Alert and oriented x3. Denies any chest pain, SOB Milrinone drip dose decreased to 0.2 mcg/kg yesterday, Pt remains stable with good urine output CCU Objective - Vital Signs / Intake & Output Vital Signs (Last 4 hours): Vital Signs Temp Pulse Resp BP Pulse Ox 09/26/17 06:00 93 H 21 102/55 L 97 09/26/17 05:00 87 21 104/74 97 09/26/17 04:00 97.8 F 84 21 114/67 97 Intake and Output (Last 8hrs): Intake & Output 09/25/17 09/26/17 09/26/17 22:59 06:59 14:59 Intake Total 120 50 Balance 120 50 Intake: Intake, Piggyback 0 50 Oral 120 - Physical Exam Head: Positive for: Atraumatic, Normocephalic Pupils: Positive for: Sluggish Conjunctiva: Positive for: Normal Mouth: Positive for: Moist Mucous Membranes Respiratory/Chest: Positive for: Clear to Auscultation Cardiovascular: Positive for: Regular Rate and Rhythm Abdomen: Positive for: Normal Bowel Sounds. Negative for: Tenderness, Distention Neurological: Positive for: Other (sedated) - Medications Active Medications: Active Medications Generic Name Dose Route Start Last Admin Trade Name Freq PRN Reason Stop Dose Admin Acetaminophen 975 mg 09/18/17 02:30 Tylenol 650mg/20.3ml Solution Ud NG Q6 PRN Rigors Albuterol Sulfate 2.5 mg 09/24/17 08:00 09/25/17 20:00 Albuterol 0.083% Inhal Daya (2.5 Mg/3 Ml) Ud INH Not Given RQID TIMUR Carvedilol 3.125 mg 09/24/17 09:00 09/25/17 21:11 Coreg PO 3.125 mg Q12 TIMUR Administration Dextrose 0 ml 09/18/17 05:13 Dextrose 50% Inj IV STAT PRN Hypoglycemia Protocol Protocol Enoxaparin Sodium 40 mg 09/22/17 09:00 09/25/17 09:45 Lovenox SC Not Given DAILY TIMUR Protocol Furosemide 40 mg 09/24/17 21:00 09/25/17 21:11 Lasix PO 40 mg Q12 TIMUR Administration Milrinone Lactate/Dextrose 100 mls @ 8.522 mls/hr 09/20/17 12:00 09/24/17 00: 35 Primacor 20mg/100ml D5w IV 0.375 mcg/kg/min .[id number] TIMUR 8.522 mls/hr Protocol Administration 0.375 MCG/KG/MIN Clindamycin Phosphate 600 mg in 50 mls @ 50 mls/hr 09/22/17 17:00 09/26/17 01 :45 Cleocin IVPB 50 mls/hr Q8 TIMUR Administration Protocol Milrinone Lactate/Dextrose 100 mls @ 4.327 mls/hr 09/25/17 10:45 09/25/17 11: 04 Primacor 20mg/100ml D5w IV 0.2 mcg/kg/min .Q23H7M TIMUR 4.327 mls/hr Protocol Administration 0.2 MCG/KG/MIN Lisinopril 10 mg 09/25/17 11:00 09/25/17 16:25 Zestril PO 10 mg DAILY TIMUR Administration Pantoprazole Sodium 40 mg 09/24/17 09:00 09/25/17 09:39 Protonix Ec Tab PO 40 mg DAILY TIMUR Administration Potassium Chloride 10 meq 09/24/17 09:00 09/25/17 09:39 Klor-Con 10 PO 10 meq DAILY TIMUR Administration - Patient Studies Lab Studies: Lab Studies 09/26/17 09/26/17 Range/Units 04:40 04:40 WBC 8.0 (4.8-10.8) K/uL RBC 5.13 (4.40-5.90) Mil/uL Hgb 10.9 L (12.0-18.0) g/dL Hct 37.4 (35.0-51.0) % MCV 72.8 L (80.0-94.0) fl MCH 21.3 L (27.0-31.0) pg MCHC 29.2 L (33.0-37.0) g/dL RDW 18.2 H (11.5-14.5) % Plt Count 309 (130-400) K/uL Sodium 130 L (132-148) mmol/l Potassium 4.5 (3.6-5.0) MMOL/L Chloride 84 L (98-107) mmol/L Carbon Dioxide 33 H (22-30) mmol/L Anion Gap 18 (10-20) BUN 16 (9-20) mg/dl Creatinine 0.7 L (0.8-1.5) mg/dl Est GFR ( Amer) > 60 Est GFR (Non-Af Amer) > 60 Random Glucose 78 (75-110) mg/dL Calcium 7.8 L (8.4-10.2) mg/dL Laboratory Results - last 24 hr 09/26/17 09/26/17 04:40 04:40 WBC 8.0 RBC 5.13 Hgb 10.9 L Hct 37.4 MCV 72.8 L MCH 21.3 L MCHC 29.2 L RDW 18.2 H Plt Count 309 Sodium 130 L Potassium 4.5 Chloride 84 L Carbon Dioxide 33 H Anion Gap 18 BUN 16 Creatinine 0.7 L Est GFR ( Amer) > 60 Est GFR (Non-Af Amer) > 60 Random Glucose 78 Calcium 7.8 L Fingerstick Blood Sugar Results: 100 Critical Care Progress Note - Nutrition Nutrition: Nutrition Category Date Time Status Heart Healthy Diet [DIET] Diets 09/22/17 Lunch Active Assessment/Plan (1) Cardiogenic shock Current Visit: Yes Status: Acute Comment: 09/21: Cardiac cath at [facility] Moderate RCA disease, Low Cardiac output with 10 % EF, CI 1.8 Milrinone drip dose decreased to 0.2 mcg/kg/min yesterday, Pt remains stable with good urine output SuplementaL Oxygen Continue Lasix Pt tolerating Lisinopril and Coreg (2) CHF (congestive heart failure) Current Visit: Yes Status: Acute Comment: Titrate up the dose of BB and REN I as BP tolerates (3) Respiratory arrest before cardiac arrest Current Visit: Yes Status: Acute Comment: Successfully Extubated 09/22 Suspected aspiration Pneumonia Cont. Clindamycin 600 mg IVPB Q8 (4) Schizophrenia Current Visit: No Status: Acute Comment: Patient is cleared by psych for discharge (ie incarceration)
[2017-09-26] MEDS: Albuterol 0.083% Inhal Sol (2.5 mg/3 mL) UD INH SCH ×4 (07:48→19:37)
--- NOTE | 2017-09-26 08:27 | CP.PCM.PN ---
Subjective - Date & Time of Evaluation Date of Evaluation: 09/26/17 Time of Evaluation: 08:00 - Subjective Subjective: Decreased Milrinone drip to 0.2 mcg/kg , BP tolerating decrease in dose, will gradually taper off no CP no SOB mild pedal edema no abd pain good appetite Objective - Vital Signs/Intake and Output Vital Signs (last 24 hours): Temp Pulse Resp BP Pulse Ox 97.8 F 88 22 131/74 97 09/26/17 04:00 09/26/17 07:51 09/26/17 07:51 09/26/17 07:51 09/26/17 06:00 Intake and Output: 09/26/17 09/26/17 06:59 18:59 Intake Total 170 129 Balance 170 129 - Medications Medications: Current Medications Acetaminophen (Tylenol 650mg/20.3ml Solution Ud) 975 mg NG Q6 PRN PRN Reason: Rigors Albuterol Sulfate (Albuterol 0.083% Inhal Daya (2.5 Mg/3 Ml) Ud) 2.5 mg INH RQID [facility] Last Admin: 09/26/17 07:48 Dose: Not Given Dextrose (Dextrose 50% Inj) 0 ml IV STAT PRN; Protocol PRN Reason: Hypoglycemia Protocol Enoxaparin Sodium (Lovenox) 40 mg SC DAILY TIMUR PRN Reason: Protocol Last Admin: 09/25/17 09:45 Dose: Not Given Furosemide (Lasix) 40 mg PO Q12 [facility] Last Admin: 09/25/17 21:11 Dose: 40 mg Clindamycin Phosphate (Cleocin) 600 mg in 50 mls @ 50 mls/hr IVPB Q8 TIMUR PRN Reason: Protocol Last Admin: 09/26/17 01:45 Dose: 50 mls/hr Milrinone Lactate/Dextrose (Primacor 20mg/100ml D5w) 100 mls @ 4.327 mls/hr IV .Q23H7M TIMUR; 0.2 MCG/KG/MIN PRN Reason: Protocol Last Admin: 09/25/17 11:04 Dose: 0.2 mcg/kg/min, 4.327 mls/hr Lisinopril (Zestril) 10 mg PO DAILY [facility] Last Admin: 09/25/17 16:25 Dose: 10 mg Pantoprazole Sodium (Protonix Ec Tab) 40 mg PO DAILY [facility] Last Admin: 09/25/17 09:39 Dose: 40 mg Potassium Chloride (Klor-Con 10) 10 meq PO DAILY TIMUR Last Admin: 09/25/17 09:39 Dose: 10 meq - Labs Labs: 09/26/17 04:40 09/26/17 04:40 PT 17.4 Seconds (9.8-13.1) H 09/18/17 02:25 INR 1.6 (0.9-1.2) H 09/18/17 02:25 - Constitutional Appears: Older Than Stated Age, Chronically Ill, Other - Head Exam Head Exam: NORMAL INSPECTION, NORMOCEPHALIC - Eye Exam Eye Exam: EOMI, Normal appearance Pupil Exam: NORMAL ACCOMMODATION - ENT Exam ENT Exam: Mucous Membranes Moist, Normal External Ear Exam Additional comments: poor dentition - Neck Exam Neck Exam: Full ROM. absent: Meningismus - Respiratory Exam Respiratory Exam: coarse Rales, Rhonchi, NORMAL BREATHING PATTERN. absent: Respiratory Distress Additional comments: - Cardiovascular Exam Cardiovascular Exam: REGULAR RHYTHM, +S1, +S2 - GI/Abdominal Exam GI & Abdominal Exam: Soft, Normal Bowel Sounds. absent: Tenderness - Extremities Exam Extremities Exam: trace Pedal Edema, callused LE - Neurological Exam Neurological Exam: Alert, Awake, moves all extremities Additional comments: oriented to person and place - Psychiatric Exam normal mood and affect - Skin Skin Exam: Dry, Normal Color, Warm Assessment and Plan - Assessment and Plan (Free Text) Assessment: 57 year old male with unknown past medical history was seen in the emergency department 09/15 for testicular pain, and was discharged. He was then brought by police for medical and psychiatric clearance prior to incarceration. Patient was sedated with haldol and Ativan because he was very agitated and aggressive towards staff . He was noted to have lower extremity edema, +Cough, no sputum, Afebrile, no WBC, however BNP 8K and CXR showed vascular congestion and questionable RLL infiltrates. Mild crackles on exam noted , no dyspnea . He was diuresed, and empirically started on IV antibiotics for CAP. Overnight went into respiratory failure with suspicious aspiration ( pooling of secretions ) that was followed by asystole, coded for 11 minutes , intubated, central line placed and started on Levophed . Large amount of secretions with mucus and saliva noted during intubation . Started on hypothermia protocol initially and discontinued since patient became responsive. Echo showed very poor cardiac function with EF < 10 % Cardiology consulted and patient started on Dobutamine drip. CT chest and CXR showed bilateral vascular congestion suspicious for ARDS. 09/21: Cardiac cath at [facility] : Moderate RCA disease, 10 % EF, Low Cardiac output Extubated on 09/22 and tolerating well. Still on Milrinone drip however dose now decrease to 0.2mcg 1. Acute respiratory failure secondary to CHF exacerbation leading to respiratory arrest and cardiac arrest Extubated 09/22 and tolerating well cont Lasix BID Continue O2 via NC On IV Clindamycin for possible aspiration pneumonia 2. Cardiogenic Shock/ CHF exacerbation echo showed EF < 10 % with hypokinesis and parodoxal septal motion Cardiology consulted : Dr. Cook- pt went for Right and Left Cardiac cath that showed EF =10% , mod RCA dis, low CO On Milrinone drip @ 0.375 mcg . Will titrate down to 0.2 mcg as discussed with Dr Cook - rec to decrease by half and increase Coreg dose and start REN, if tolerated will d/c Milrinone drip Increased Coreg to 6.25 mg PO BID , added Lisinoprol 10mg continue Lasix but switched to PO 3. Suspected aspiration Pneumonia cont clindamycin IV O2 via NC Respiratory toilet with aspiration precautions 4.Anemia Most likely chronic, stable Hgb 10.9 5. Transaminitis most likely secondary to passive liver congestion - now normal Continue monitoring 6. Hypoglycemia resolved restarted Po diet D/c accuchecks 7. History of Schizophrenia Psych consult appreciated patient is cleared by psych for discharge or incarceration . No treatment recommended at this time 8.VTE Proph lovenox
[2017-09-26] MEDS: Potassium Chloride 10 mEq ER Tab PO SCH (09:10)
[2017-09-26] MEDS: Pantoprazole 40 mg EC Tab PO SCH (09:11)
[2017-09-26] MEDS: Enoxaparin 40 mg Syringe SC SCH (09:11)
[2017-09-26] MEDS: Vitamins A & D Oint UD Foilpak TOP SCH (16:38)
[2017-09-27] MEDS: Clindamycin 600mg/50ml D5W 600 MG/50 ML VIAL IVPB SCH (00:47)
[2017-09-27] MEDS ORDERED: guaiFENesin 100 mg/5 ml Syrup UD PO PRN (00:53)
[2017-09-27 01:16] VITALS: O2SAT 100
[2017-09-27 05:40] LABS: INR 1.2 (0.9-1.2); PARTIAL THROMBOPLASTIN TIME 33.7 Seconds (25.6-37.1); PROTHROMBIN TIME 12.8 Seconds (9.8-13.1)
[2017-09-27 05:44] LABS: B-TYPE NATRIURETIC PEPTIDE 4720 pg/ml (0-900)
[2017-09-27 06:02] LABS: HEMOGLOBIN 10.2 g/dL (12.0-18.0); MEAN CELL VOLUME 72.1 fl (80.0-94.0); MEAN CORPUSCULAR HEMOGLOBIN 21.1 pg (27.0-31.0); MEAN CORPUSCULAR HGB CONC 29.3 g/dL (33.0-37.0); RBC 4.83 Mil/uL (4.40-5.90); RED CELL DISTRIBUTION WIDTH 18.4 % (11.5-14.5); WHITE BLOOD COUNT 9.3 K/uL (4.8-10.8)
[2017-09-27 06:21] LABS: BLOOD UREA NITROGEN 21 mg/dl (9-20); CALCIUM 8.2 mg/dL (8.4-10.2); GFR AFRICAN-AMERICAN > 60; GFR NON-AFRICAN AMERICAN > 60
--- NOTE | 2017-09-27 06:59 | RAD ---
PROCEDURE: CHEST RADIOGRAPH, 1 VIEW HISTORY: cough/sob COMPARISON: Portable chest 09/24/2017. FINDINGS: LUNGS: Scattered go mild bilateral infiltrates appear improved at the apices more so than at the bases. PLEURA: Limited bilateral pleural effusions obscure the bilateral costophrenic sulci once again. No pneumothorax bilaterally. CARDIOVASCULAR: Cardiac silhouette remains prominent. No definite pulmonary vascular congestion. OSSEOUS STRUCTURES: No significant abnormalities. VISUALIZED UPPER ABDOMEN: Normal. OTHER FINDINGS: None. IMPRESSION: Improving scattered bilateral infiltrates as discussed above with trace bilateral pleural effusions with likely remaining. Cardiomegaly stable.
[2017-09-27] MEDS: Albuterol 0.083% Inhal Sol (2.5 mg/3 mL) UD INH SCH (07:51)
--- NOTE | 2017-09-27 08:06 | CP.PCM.DIS ---
Provider - Provider Date of Admission: 09/18/17 02:30 Attending physician: Tip Collins Primary care physician: None Consults: Cardiology consult Interventional cardiology consult psychiatry consult 09/16/17 05:10 Crisis Evaluation As Ordered Comment: Physician Instructions: Reason For Exam: crisis Time Spent in preparation of Discharge (in minutes): 15 Hospital Course - Lab Results Lab Results: Micro Results 09/18/17 16:00 Trachasp Gram Stain - Final 09/18/17 16:00 Trachasp Sputum Culture - Final NORMAL ORAL CINDY 09/16/17 10:30 Naris MRSA Culture (Admit) - Final Most Recent Lab Values WBC 9.3 K/uL (4.8-10.8) 09/27/17 04:20 RBC 4.83 Mil/uL (4.40-5.90) 09/27/17 04:20 Hgb 10.2 g/dL (12.0-18.0) L 09/27/17 04:20 Hct 34.9 % (35.0-51.0) L 09/27/17 04:20 MCV 72.1 fl (80.0-94.0) L 09/27/17 04:20 MCH 21.1 pg (27.0-31.0) L 09/27/17 04:20 MCHC 29.3 g/dL (33.0-37.0) L 09/27/17 04:20 RDW 18.4 % (11.5-14.5) H 09/27/17 04:20 Plt Count 370 K/uL (130-400) 09/27/17 04:20 MPV 8.0 fl (7.2-11.7) 09/18/17 02:25 Neut % (Auto) 60.1 % (50.0-75.0) 09/18/17 02:25 Lymph % (Auto) 32.2 % (20.0-40.0) 09/18/17 02:25 [place]ade % (Auto) 5.6 % (0.0-10.0) 09/18/17 02:25 Eos % (Auto) 0.0 % (0.0-4.0) 09/18/17 02:25 Baso % (Auto) 2.1 % (0.0-2.0) H 09/18/17 02:25 Neut # (Auto) 5.7 K/uL (1.8-7.0) 09/18/17 02:25 Lymph # (Auto) 3.1 K/uL (1.0-4.3) 09/18/17 02:25 [place] # (Auto) 0.5 K/uL (0.0-0.8) 09/18/17 02:25 Eos # (Auto) 0.0 K/uL (0.0-0.7) 09/18/17 02:25 Baso # (Auto) 0.2 K/uL (0.0-0.2) 09/18/17 02:25 PT 12.8 Seconds (9.8-13.1) 09/27/17 04:20 INR 1.2 (0.9-1.2) 09/27/17 04:20 APTT 33.7 Seconds (25.6-37.1) 09/27/17 04:20 pCO2 49 mm/Hg (35-45) H 09/22/17 05:08 pO2 95 mm/Hg (80-100) 09/22/17 05:08 HCO3 33.3 mmol/L (21-28) H 09/22/17 05:08 ABG pH 7.47 (7.35-7.45) H 09/22/17 05:08 ABG Total CO2 37.2 mmol/L (22-28) H 09/22/17 05:08 ABG O2 Saturation 98.2 % (95-98) H 09/22/17 05:08 ABG O2 Content 13.1 ML/dL (15-23) L 09/22/17 05:08 ABG Base Excess 10.7 mmol/L (-2.0-3.0) H 09/22/17 05:08 ABG Hemoglobin 9.6 g/dL (11.7-17.4) L 09/22/17 05:08 ABG Carboxyhemoglobin 1.2 % (0.5-1.5) 09/22/17 05:08 POC ABG HHb (Measured) 1.8 % (0.0-5.0) 09/22/17 05:08 ABG Methemoglobin 0.7 % (0.0-3.0) 09/22/17 05:08 ABG O2 Capacity 13.3 mL/dL (16-24) L 09/22/17 05:08 Cecilio Test Yes 09/22/17 05:08 ABG Potassium 3.7 mmol/L (3.6-5.2) 09/19/17 04:00 VBG pH 7.41 (7.32-7.43) 09/21/17 09:41 VBG pCO2 56 mmHg (40-60) 09/21/17 09:41 VBG HCO3 31.3 mmol/L 09/21/17 09:41 VBG Total CO2 37.2 mmol/L (22-28) H 09/21/17 09:41 VBG O2 Sat (Calc) 79.7 % (40-65) H 09/21/17 09:41 VBG Base Excess 8.9 mmol/L (0.0-2.0) H 09/21/17 09:41 VBG Potassium 3.7 mmol/L (3.6-5.2) 09/21/17 09:41 A-a O2 Difference 129.0 mm/Hg 09/22/17 05:08 Hgb O2 Saturation 96.3 % (95.0-98.0) 09/22/17 05:08 Sodium 136.0 mmol/L (132-148) 09/21/17 09:41 Chloride 102.0 mmol/L (98-107) 09/21/17 09:41 Glucose 107 mg/dL (75-110) 09/21/17 09:41 Lactate 0.8 mmol/L (0.7-2.1) 09/21/17 09:41 Vent Mode A/c 09/22/17 05:08 Mechanical Rate 12 09/22/17 05:08 FiO2 40.0 % 09/22/17 05:08 Tidal Volume 450 09/22/17 05:08 PEEP 5 09/22/17 05:08 Crit Value Called To Jose llamas md 09/18/17 02:30 Crit Value Called By 302 09/18/17 02:30 Crit Value Read Back Y 09/18/17 02:30 Blood Gas Notified Time 235 09/18/17 02:30 Sodium 131 mmol/l (132-148) L 09/27/17 04:20 Potassium 4.5 MMOL/L (3.6-5.0) 09/27/17 04:20 Chloride 86 mmol/L (98-107) L 09/27/17 04:20 Carbon Dioxide 37 mmol/L (22-30) H 09/27/17 04:20 Anion Gap 13 (10-20) 09/27/17 04:20 BUN 21 mg/dl (9-20) H 09/27/17 04:20 Creatinine 0.7 mg/dl (0.8-1.5) L 09/27/17 04:20 Est GFR ( Amer) > 60 09/27/17 04:20 Est GFR (Non-Af Amer) > 60 09/27/17 04:20 POC Glucose (mg/dL) 93 mg/dL (65-110) 09/24/17 05:38 Random Glucose 79 mg/dL (75-110) 09/27/17 04:20 Lactic Acid 4.5 MMOL/L (0.7-2.1) H* 09/18/17 04:20 Calcium 8.2 mg/dL (8.4-10.2) L 09/27/17 04:20 Phosphorus 3.5 mg/dl (2.5-4.5) 09/19/17 04:20 Magnesium 1.2 MG/DL (1.6-2.3) L 09/19/17 04:20 Total Bilirubin 0.4 mg/dl (0.2-1.3) 09/23/17 04:15 GGT 128 U/L (8-78) H 09/18/17 11:06 AST 47 U/L (17-59) 09/23/17 04:15 ALT 45 U/L (21-72) 09/23/17 04:15 Alkaline Phosphatase 150 U/L (38-126) H 09/23/17 04:15 Troponin I 0.5720 ng/mL (0.00-0.120) H* 09/18/17 18:34 NT-Pro-B Natriuret Pep 4720 pg/ml (0-900) H 09/27/17 04:20 Total Protein 6.9 G/DL (6.3-8.2) 09/23/17 04:15 Albumin 2.6 g/dL (3.5-5.0) L 09/23/17 04:15 Globulin 4.2 gm/dL (2.2-3.9) H 09/23/17 04:15 Albumin/Globulin Ratio 0.6 (1.0-2.1) L 09/23/17 04:15 Procalcitonin 0.05 NG/ML (0.19-0.49) L 09/17/17 07:25 Arterial Blood Potassium 3.7 mmol/L (3.6-5.2) 09/19/17 04:00 Venous Blood Potassium 3.7 mmol/L (3.6-5.2) 09/21/17 09:41 Urine Color Yellow (YELLOW) 09/17/17 04:25 Urine Clarity Clear (Clear) 09/17/17 04:25 Urine pH 5.0 (5.0-8.0) 09/17/17 04:25 Ur Specific [place] 1.025 (1.003-1.030) 09/17/17 04:25 Urine Protein Negative mg/dL (NEGATIVE) 09/17/17 04:25 Urine Glucose (UA) Neg mg/dL (Normal) 09/17/17 04:25 Urine Ketones Negative mg/dL (NEGATIVE) 09/17/17 04:25 Urine Blood Negative (NEGATIVE) 09/17/17 04:25 Urine Nitrate Negative (NEGATIVE) 09/17/17 04:25 Urine Bilirubin Negative (NEGATIVE) 09/17/17 04:25 Urine Urobilinogen 2.0 mg/dL (0.2-1.0) 09/17/17 04:25 Ur Leukocyte Esterase Neg Adam/uL (Negative) 09/17/17 04:25 Urine RBC (Auto) 1 /hpf (0-3) 09/17/17 04:25 Urine Microscopic WBC 1 /hpf (0-5) 09/17/17 04:25 Urine Bacteria Rare (<OCC) 09/17/17 04:25 Urine Opiates Screen Negative (NEGATIVE) 09/17/17 07:59 Urine Methadone Screen Negative (NEGATIVE) 09/17/17 07:59 Ur Barbiturates Screen Negative (NEGATIVE) 09/17/17 07:59 Ur Phencyclidine Scrn Negative (NEGATIVE) 09/17/17 07:59 Ur Amphetamines Screen Negative (NEGATIVE) 09/17/17 07:59 U Benzodiazepines Scrn Negative (NEGATIVE) 09/17/17 07:59 U Oth Cocaine Metabols Negative (NEGATIVE) 09/17/17 07:59 U Cannabinoids Screen Negative (NEGATIVE) 09/17/17 07:59 Alcohol, Quantitative < 10 mg/dl (0-10) 09/16/17 06:57 - Hospital Course Hospital Course: 57 year old male with unknown past medical history was seen in the emergency department 09/15 for testicular pain, and was discharged. He was then brought by police for medical and psychiatric clearance prior to incarceration. Patient was sedated with haldol and Ativan because he was very agitated and aggressive towards staff . He was noted to have lower extremity edema, +Cough, no sputum, Afebrile, no WBC, however BNP 8K and CXR showed vascular congestion and questionable RLL infiltrates. Mild crackles on exam noted , no dyspnea . He was diuresed, and empirically started on IV antibiotics for CAP. Overnight went into respiratory failure with suspicious aspiration ( pooling of secretions ) that was followed by asystole, coded for 11 minutes , intubated, central line placed and started on Levophed . Large amount of secretions with mucus and saliva noted during intubation . Started on hypothermia protocol initially and discontinued since patient became responsive. Echo showed very poor cardiac function with EF < 10 % Cardiology consulted and patient started on Dobutamine drip. CT chest and CXR showed bilateral vascular congestion suspicious for ARDS. 09/21 performed Cardiac cath at [facility] : that showed Moderate RCA disease, 10 % EF, Low Cardiac output he was successfully extubated on 09/22 and tolerating well. was started on milrinone drip and maintained for almost 1 week than tappered off. ACEI and Coreg were strated and he is tolerating well At present he is stable but has poor prognosis due to his poor cardiac function with EF <10 % Will discharge patient n police custody today. Prescriptions will be provided . Patient to be followed by the physician in [facility]. Will need to continue heart healthy , low salt diet and avoid strenuous exercise. 1. Acute respiratory failure secondary to CHF exacerbation leading to respiratory arrest and cardiac arrest Extubated 09/22 and tolerating well cont Lasix BID Received Clindamycin for possible aspiration pneumonia 2. Cardiogenic Shock/ CHF exacerbation echo showed EF < 10 % with hypokinesis and parodoxal septal motion Right and Left Cardiac cath that showed EF =10% , mod RCA dis, low CO was on Milrinone and nowc titrated off and tolerating well. BP controlled Continue lisinopril, Coregh and Lasix 3. Suspected aspiration Pneumonia Received clindamycin IV 4.Anemia Most likely chronic, stable Hgb 10.9 5. Transaminitis most likely secondary to passive liver congestion - now normal Continue monitoring 6. Hypoglycemia resolved restarted Po diet 7. History of Schizophrenia Psych consult appreciated patient is cleared by psych for discharge or incarceration . No treatment recommended at this time 8.VTE Proph received lovenox Discharge Exam - Head Exam Head Exam: ATRAUMATIC, NORMAL INSPECTION, NORMOCEPHALIC - Eye Exam Eye Exam: EOMI, PERRL - ENT Exam ENT Exam: Mucous Membranes Moist, Normal Exam - Neck Exam Neck exam: Full Rom, Normal Inspection - Respiratory Exam Respiratory Exam: Rales, Rhonchi, NORMAL BREATHING PATTERN. absent: Accessory Muscle Use, Wheezes, Respiratory Distress - Cardiovascular Exam Cardiovascular Exam: REGULAR RHYTHM, +S1, +S2. absent: JVD - GI/Abdominal Exam GI & Abdominal Exam: Normal Bowel Sounds, Soft. absent: Distended, Guarding, Rebound, Tenderness - Rectal Exam Rectal Exam: Deferred - Extremities Exam Extremities exam: normal inspection, pedal edema (1 +) Additional comments: bilateral big toes callouses - Neurological Exam Neurological exam: Alert, CN II-XII Intact - Psychiatric Exam Psychiatric exam: Flat Affect - Skin Skin Exam: Dry, Warm Discharge Plan - Discharge Medications Prescriptions: Carvedilol [Coreg] 6.25 mg PO Q12 #60 tab Furosemide [Lasix] 40 mg PO Q12 #60 tab Lisinopril [Zestril] 10 mg PO DAILY #30 tab Pantoprazole [Protonix EC Tab] 40 mg PO DAILY #30 ect Potassium Chloride [Klor-Con 10] 10 meq PO DAILY #30 ter Vitamin A & D [Vitamin A & D Oint UD Foilpak] 4 ea TOP BID #1 fp - Follow Up Plan Condition: FAIR Disposition: HOME/ ROUTINE Instructions: General (DC), Heart Failure, Adult (DC) Referrals: [facility] [Outside]
[2017-09-27 08:30] VITALS: BP 105/60; RESP 15; TEMP 97.9
[2017-09-27] MEDS: Potassium Chloride 10 mEq ER Tab PO SCH (09:37)
[2017-09-27] MEDS: Enoxaparin 40 mg Syringe SC SCH (09:38)
[2017-09-27] MEDS: Pantoprazole 40 mg EC Tab PO SCH (09:39)
[2017-09-27] MEDS: Vitamins A & D Oint UD Foilpak TOP SCH (09:39)
[2017-09-27 09:40] VITALS: PULSE 72
== END 2017-09-27 10:28 | DRG 207 ==
LOC: H.ER 03:29 → H.ERHOLD 05:29 → H.ICU/CCU 21:28 → OBSVTOIN 09-18 02:30
PROVIDERS: ADMIT Internal Medicine; ATTEND Internal Medicine
PROC: 06HM33Z Insertion of Infusion Device into Right Femoral Vein, Percutaneous Approach (ICD-10-PCS; principal; 2017-09-18)
PROC: 5A1955Z Respiratory Ventilation, Greater than 96 Consecutive Hours (ICD-10-PCS; 2017-09-18)
PROC: 0BH17EZ Insertion of Endotracheal Airway into Trachea, Via Natural or Artificial Opening (ICD-10-PCS; 2017-09-18)
PROC: 5A12012 Performance of Cardiac Output, Single, Manual (ICD-10-PCS; 2017-09-18)
PROC: 4A023N8 Measurement of Cardiac Sampling and Pressure, Bilateral, Percutaneous Approach (ICD-10-PCS; 2017-09-21)
PROC: B205YZZ Plain Radiography of Left Heart using Other Contrast (ICD-10-PCS; 2017-09-21)
DX: J18.9 Pneumonia, unspecified organism (principal); R57.0 Cardiogenic shock; I46.9 Cardiac arrest, cause unspecified; I50.23 Acute on chronic systolic (congestive) heart failure; J96.01 Acute respiratory failure with hypoxia; I42.0 Dilated cardiomyopathy; J69.0 Pneumonitis due to inhalation of food and vomit; I11.0 Hypertensive heart disease with heart failure; F20.9 Schizophrenia, unspecified; Z88.0 Allergy status to penicillin; Z78.1 Physical restraint status; F17.210 Nicotine dependence, cigarettes, uncomplicated; Z91.14 Patient's other noncompliance with medication regimen; E16.2 Hypoglycemia, unspecified; K76.1 Chronic passive congestion of liver; I25.10 Atherosclerotic heart disease of native coronary artery without angina pectoris; D64.9 Anemia, unspecified